=== PATIENT | female | born 1940 | race Caucasian/White ===

== ENCOUNTER 2016-07-15 14:35 | Emergency (ER) | payer OTHER, BC ==
[~2016-07-15] VITALS: Ht 167.6 cm; Wt 100.0 kg
[~2016-07-15 14:35] MED LIST: DONE1TAB26 PO; LATA0.009 OPB; NMN10 PO; SIMV40TA2 PO
[2016-07-15 14:48] VITALS: Ht 167.6 cm; Wt 100.0 kg
[2016-07-15] MEDS ORDERED: DONE5TAB9 PO (14:59)
[2016-07-15] MEDS ORDERED: RAMI5CAP PO (14:59)
[2016-07-15] MEDS ORDERED: MEMA1CAP3 PO (14:59)
[2016-07-15 15:10] VITALS: O2SAT 99
--- NOTE | 2016-07-15 15:15 | DIAGNOSTIC IMAGING REPORT ---
CHEST ONE VIEW PORTABLE CLINICAL HISTORY: syncope dyspnea COMPARISON STUDY: 06/05/2013 FINDINGS: Mild stable cardiomegaly. Diaphragms smooth. Lungs are clear. IMPRESSION: No acute process. Electronically signed by: Lance Doty M.D. 07/15/2016 3:13 PM Dictated Date/Time: 07/15/2016 3:13 PM
[2016-07-15 15:23] LABS: HEMATOCRIT 38.4 % (37-47); MEAN CELL VOLUME 82.2 fL (80-100); MEAN CORPUSCULAR HEMOGLOBIN 25.9 pg (25-34); MEAN CORPUSCULAR HGB CONC 31.5 g/dl (32-36); MEAN PLATELET VOLUME 9.4 fL (7.4-10.4); PLATELET COUNT 205 K/uL (130-400); RED BLOOD COUNT 4.67 M/uL (4.2-5.4); WHITE BLOOD COUNT 7.49 K/uL (4.8-10.8)
[2016-07-15] MEDS ORDERED: SODIUM CHLORIDE 0.9% 1000ML 1,000 ML IV STA (15:31)
[2016-07-15] MEDS ORDERED: SODIUM CHLORIDE 0.9% 500ML 500 ML IV STA (15:31)
[2016-07-15 15:40] LABS: PARTIAL THROMBOPLASTIN RATIO 0.9; PROTHROMBIN TIME (PATIENT) 10.7 SECONDS (9.0-12.0)
[2016-07-15 15:42] LABS: ALT/SGPT 24 U/L (12-78); AST/SGOT 17 U/L (15-37); BLOOD UREA NITROGEN 25 mg/dl (7-18); BUN/CREATININE RATIO 24.9 (10-20); CALCIUM 8.2 mg/dl (8.5-10.1); CARBON DIOXIDE 25 mmol/L (21-32); CHLORIDE 112 mmol/L (98-107); GLUCOSE 107 mg/dl (70-99); POTASSIUM 3.7 mmol/L (3.5-5.1); SODIUM 146 mmol/L (136-145)
[2016-07-15 15:47] LABS: ALB/GLOB RATIO 1.1 (0.9-2); ALKALINE PHOSPHATASE 92 U/L (45-117); CKMB/CK RATIO 2.8 (0-3.0)
[2016-07-15 16:08] LABS: MAGNESIUM 2.3 mg/dl (1.8-2.4)
--- NOTE | 2016-07-15 16:32 | DIAGNOSTIC IMAGING REPORT ---
CT HEAD WITHOUT CONTRAST (CT) CLINICAL HISTORY: Dizziness, near-syncope. COMPARISON STUDY: 06/05/2013 TECHNIQUE: Axial CT of the brain is performed from the vertex to the skull base. IV contrast was not administered for this examination. CT DOSE: 1132.92 mGycm FINDINGS: No intra or extra-axial mass lesions are visualized. There is no CT evidence of acute cortical infarction. There is no evidence of midline shift. There is no acute hemorrhage. No calvarial fractures are visualized. There are patchy white matter hypodensities likely on a small vessel basis. There is mild ventricular dilatation, similar to the preceding study. There is mild mucosal thickening within several left-sided ethmoid air cells. No air-fluid levels are visualized. Old calvarial meño holes are visualized. IMPRESSION: Postsurgical changes in the calvarium. No acute intracranial findings. Electronically signed by: Mitch Corbin M.D. 07/15/2016 4:31 PM Dictated Date/Time: 07/15/2016 4:29 PM
[2016-07-15] MEDS ORDERED: SODIUM CHLORIDE 0.9% 250ML 250 ML IV STA (17:15)
--- NOTE | 2016-07-15 18:15 | EMERGENCY ROOM VISIT NOTE ---
History First contact with patient: 15:07 Chief Complaint: SYNCOPE (NEAR SYNCOPE) Stated Complaint: SYNCOPE Nursing Triage Summary: pt hx alzheimers and dementia, shooping with family, felt warm, removed jacket, family took he outside. slid her to a sitting position, denied fall. no injury. medic moted ST depression on monitor. no cardiac hx. hw htn, one "onr pill" History of Present Illness The patient is a 76 year old female who presents to the Emergency Department by private vehicle for evaluation after a near-syncopal episode. She was reportedly shopping at a grocery store with her family when she reports feeling not well. She was taken outside and her jacket was unzipped as she reports that she was feeling warm. She was lowered to the ground and nearly lost consciousness. She's not strike her head. She never lost consciousness completely. The patient suffers from dementia. She is unable to provide any information as to her feelings of symptoms. She denies any pain at this time. There is been no history of syncopal episodes. The patient did not defecate herself. Family reports that she is back at baseline at this point. Review of Systems Limited secondary to patient's mental status. Past Medical/Surgical History Medical Problems: (1) Dementia (2) Hyperlipidemia Social History Smoking Status: Never Smoker Smokeless Tobacco Use: No Alcohol Use: none Drug Use: none Marital Status: Housing Status: lives with family Occupation Status: unemployed Current/Historical Medications Scheduled Donepezil HCl (Aricept), 5 MG PO DAILY Memantine Hcl (Namenda Xr), 14 MG PO QAM Ramipril (Ramipril), 5 MG PO QAM Simvastatin (Zocor), 40 MG PO QPM Allergies Coded Allergies: No Known Allergies (Verified , 07/15/16) Physical Exam Vital Signs Date Time Temp Pulse Resp B/P Pulse Ox O2 Delivery O2 Flow Rate FiO2 07/15/16 18:20 36.6 87 19 155/81 95 07/15/16 18:03 87 155/81 95 Room Air 07/15/16 16:10 71 19 07/15/16 16:05 70 24 161/85 95 07/15/16 15:40 63 27 98 07/15/16 15:35 64 20 07/15/16 15:30 66 32 07/15/16 15:25 62 20 97 07/15/16 15:20 68 31 97 07/15/16 15:15 66 27 96 07/15/16 15:10 99 Room Air 07/15/16 15:10 36.6 63 18 104/75 99 Room Air 07/15/16 15:10 68 27 93 07/15/16 15:05 68 25 96 07/15/16 15:00 66 18 95 07/15/16 14:59 63 07/15/16 14:59 128/69 07/15/16 14:55 66 21 96 07/15/16 14:50 67 21 96 07/15/16 14:48 99 Room Air 07/15/16 14:48 36.6 65 18 104/75 96 Room Air 07/15/16 14:45 104/75 Pain Rating (0-10): 0 Physical Exam VITAL SIGNS - Vital signs and nursing notes were reviewed. GENERAL - 76-year-old female appearing her stated age who is in no acute distress. Pleasantly demented. HEAD - NC/AT. EYES - PERRL with EOMI bilaterally. Sclera anicteric. Palpebral conjunctiva pink and moist with no injection noted. EARS - No deformities of external structures noted on gross examination bilaterally. No pain elicited with palpation of the tragus bilaterally. External auditory canals without discharge or otorrhea. Tympanic membranes pearly pascal without retraction or bulging. NOSE - Midline and without cyanosis. No epistaxis or purulent drainage noted. Septum midline without deviation or septal hematoma noted. MOUTH/OROPHARYNX - Without perioral cyanosis. Buccal mucosa pink and moist and without leukoplakia. Tongue midline with equal elevation of palate bilaterally. No tonsillar hypertrophy, erythema, or exudates noted. NECK - Neck with FROM. Supple to palpation. LUNGS - Chest wall symmetric without accessory muscle use, intercostals retractions, or central cyanosis. Normal vesicular breath sounds CTA B/L. No wheezes, rales, or rhonchi appreciated. CARDIAC - RRR with S1/S2. No murmur, rubs, or gallops appreciated. No reproducible tenderness to palpation appreciated over the anterior chest wall. ABDOMEN - Abdominal contour obese and without pulsations or visible masses. BS normoactive all four quadrants. No tenderness, palpable masses, hepatosplenomegaly, or ascites noted. EXTREMITIES - No clubbing or peripheral cyanosis. No pretibial edema present. +3 /5 radial and dorsalis pedis pulses palpated throughout. +5/5 strength noted in UE/LE bilaterally. NEUROLOGIC - Cranial nerves II through XII grossly intact. Sensory intact to light touch throughout. PSYCH - Pleasantly demented. Pt is very pleasant and interacts well with examiner. Medical Decision & Procedures ER Provider Diagnostic Interpretation: Radiological imaging and reports were reviewed by myself. Radiologist's Interpretation as follows: CT HEAD WITHOUT CONTRAST (CT) CLINICAL HISTORY: Dizziness, near-syncope. COMPARISON STUDY: 06/05/2013 TECHNIQUE: Axial CT of the brain is performed from the vertex to the skull base. IV contrast was not administered for this examination. CT DOSE: 1132.92 mGycm FINDINGS: No intra or extra-axial mass lesions are visualized. There is no CT evidence of acute cortical infarction. There is no evidence of midline shift. There is no acute hemorrhage. No calvarial fractures are visualized. There are patchy white matter hypodensities likely on a small vessel basis. There is mild ventricular dilatation, similar to the preceding study. There is mild mucosal thickening within several left-sided ethmoid air cells. No air-fluid levels are visualized. Old calvarial meño holes are visualized. IMPRESSION: Postsurgical changes in the calvarium. No acute intracranial findings. CHEST ONE VIEW PORTABLE CLINICAL HISTORY: syncope dyspnea COMPARISON STUDY: 06/05/2013 FINDINGS: Mild stable cardiomegaly. Diaphragms smooth. Lungs are clear. IMPRESSION: No acute process. Laboratory Results 07/15/16 15:14 07/15/16 15:14 Test 07/15/16 15:14 07/15/16 16:53 Red Blood Count 4.67 M/uL (4.2-5.4) Mean Corpuscular Volume 82.2 fL (80-100) Mean Corpuscular Hemoglobin 25.9 pg (25-34) Mean Corpuscular Hemoglobin Concent 31.5 g/dl (32-36) RDW Standard Deviation 43.1 fL (36.4-46.3) RDW Coefficient of Variation 14.4 % (11.5-14.5) Mean Platelet Volume 9.4 fL (7.4-10.4) Prothrombin Time 10.7 SECONDS (9.0-12.0) Prothromb Time International Ratio 1.0 (0.9-1.1) Activated Partial Thromboplast Time 24.1 SECONDS (21.0-31.0) Partial Thromboplastin Ratio 0.9 Anion Gap 9.0 mmol/L (3-11) Est Creatinine Clear Calc Drug Dose 55.3 ml/min Estimated GFR () 62.5 Estimated GFR (Non- 53.9 BUN/Creatinine Ratio 24.9 (10-20) Calcium Level 8.2 mg/dl (8.5-10.1) Magnesium Level 2.3 mg/dl (1.8-2.4) Total Bilirubin 0.3 mg/dl (0.2-1) Aspartate Amino Transf (AST/SGOT) 17 U/L (15-37) Alanine Aminotransferase (ALT/SGPT) 24 U/L (12-78) Alkaline Phosphatase 92 U/L (45-117) Total Creatine Kinase 47 U/L (26-192) Creatine Kinase MB 1.3 ng/ml (0.5-3.6) Creatine Kinase MB Ratio 2.8 (0-3.0) Troponin I < 0.015 ng/ml (0-0.045) Total Protein 6.6 gm/dl (6.4-8.2) Albumin 3.5 gm/dl (3.4-5.0) Globulin 3.1 gm/dl (2.5-4.0) Albumin/Globulin Ratio 1.1 (0.9-2) Thyroid Stimulating Hormone (TSH) 4.580 uIu/ml (0.300-4.500) Ethyl Alcohol mg/dL < 3.0 mg/dl (0-3) Medications Administered Medications (Trade) Dose Ordered Sig/Srini Route Start Time Stop Time Status Last Admin Dose Admin Sodium Chloride 500 ml @ 999 mls/hr Q31M STAT IV 07/15/16 15:31 07/15/16 16:01 DC 07/15/16 16:06 999 MLS/HR Sodium Chloride (Nss 1000ml) 1,000 ml @ 125 mls/hr Q8H STAT IV 07/15/16 15:31 07/15/16 19:59 DC 07/15/16 15:31 125 MLS/HR Procedure Patient was placed on the quality assurance monitor and monitored throughout the entire extent of their stay. In addition, the patient's pulse oximetry was monitored throughout the entire stay. Any abnormalities or aberrancies were addressed appropriately. ECG Indication: syncope Rate (beats per minute): 64 Rhythm: normal sinus Findings: LBBB Change: no significant change (from 06/05/2013.) ED Course Patient was seen and evaluated by myself. Labs were drawn, saline lock in place. EKG and chest x-rays were obtained. CT the head was obtained. Laboratory results demonstrate no acute leukocytosis, worrisome anemia, or bandemia. The patient has no significant electrolyte abnormalities. Cardiac enzymes are negative. The patient was hydrated with a 500 mL normal saline bolus. She was hydrated with normal saline at a rate of 1 25 mL per hour after that. The patient was unsuccessfully catheterize for urine sample. Laboratory results and imaging studies were reviewed with patient and family. Family acknowledges understanding. We did attempt to have the patient provide her own urine sample which she was unsuccessfully able to do. At this point, patient requests to be discharged home as the patient is becoming increasingly agitated secondary to her Alzheimer's. Case was discussed with my attending physician who agrees with the diagnostic approach and treatment plan. Patient discharged home in good condition. Medical Decision Given the patient's presentation and stated complaints, I did elect to perform the above-mentioned workup. The patient presents today after having a near- syncopal episode. No precipitating events of the complaining of feeling hot. There is no seizure-like activity. Her cardiac enzymes and EKG are unremarkable and did not suggest cardiac etiology. She was complaining of some dizziness over the last few days. CT the head demonstrates no acute findings. The patient has no focal neurological deficits on exam. She is pleasantly demented. She resolved well to IV fluid hydration. We were unable to successfully obtain urine sample secondary to patient's cooperation. Patient family were comfortable with disposition and plan. She was discharged home with the intent for close follow-up with her primary care provider. Patient discharged home in good condition. In the evaluation and treatment of this patient, the following differential diagnoses were considered: Migraine Headache, Intracranial Hemorrhage, Subdural Hematoma, Subarachnoid Hemorrhage, Cerebral Aneurysm, Temporal/Giant Cell Arteritis, Tension Headache, Meningitis, Encephalitis, Hydrocephalus, NE, ASC, Dysrhythmia, Angina, Mediastinitis, GERD, Esophagitis, PE, Pneumonia, Bronchitis , Costochondritis, Rib Fracture, Zoster. Impression Primary Impression: Vasovagal near syncope Departure Information Dispostion Home / Self-Care Condition GOOD Referrals Chet Espinal M.D. (PCP) Patient Instructions ED Syncope Vasovagal, My [facility] Additional Instructions You've been seen in the emergency department today for a near-syncopal episode. Drink plenty of fluids and stay well hydrated. You have been provided a urine collection cup to provide a sample in the outpatient setting. Follow-up with your primary care provider from today's visit. Return for any changing or worsening symptoms.
[2016-07-15 18:20] VITALS: BP 155/81; PULSE 87; TEMP 36.6; O2SAT 95
--- NOTE | 2016-07-15 18:42 | EMERGENCY ROOM VISIT NOTE ---
ED Visit Note First contact with patient: 15:07 76-year-old female with near-syncope was fully evaluated by Horace Gorman PA-C. Please see his note. I also independently evaluated the patient. I also spoke with family members. The patient was felt safe to return home.
== END 2016-07-15 18:20 | disposition home or self-care (01) ==
LOC: EDBD 14:35 → C.EDC 14:41
DX: R55 Syncope and collapse (principal); G30.9 Alzheimer's disease, unspecified; F02.80 Dementia in other diseases classified elsewhere, unspecified severity, without behavioral disturbance, psychotic disturbance, mood disturbance, and anxiety; Z79.899 Other long term (current) drug therapy; E78.5 Hyperlipidemia, unspecified

== ENCOUNTER 2016-12-27 12:28 | Observation (INO) | payer OTHER, BC ==
[~2016-12-27] VITALS: Ht 162.6 cm; Wt 67.2 kg
[~2016-12-27 12:28] MED LIST changes: -DONE1TAB26 PO; +DONE5TAB9 PO; -LATA0.009 OPB; +MEMA1CAP3 PO; -NMN10 PO; +RAMI5CAP PO
[2016-12-27] MEDS ORDERED: SODIUM CHLORIDE 0.9% 1000ML 1,000 ML IV STA (12:59)
[2016-12-27 13:38] LABS: BASO % 0.5 %; BASO ABS # 0.04 K/uL (0-0.2); COMPLETE YES; EOS % 1.4 %; HEMATOCRIT 41.7 % (37-47); IG% 0.2 %; LYMPH % 15.2 %; LYMPH ABS # 1.35 K/uL (1.2-3.4); MEAN CELL VOLUME 83.7 fL (80-100); MEAN CORPUSCULAR HEMOGLOBIN 25.3 pg (25-34); MEAN CORPUSCULAR HGB CONC 30.2 g/dl (32-36); MEAN PLATELET VOLUME 9.5 fL (7.4-10.4); MONO % 6.8 %; NEUT % 75.9 %; PLATELET COUNT 225 K/uL (130-400); RED BLOOD COUNT 4.98 M/uL (4.2-5.4); WHITE BLOOD COUNT 8.87 K/uL (4.8-10.8)
[2016-12-27 13:54] LABS: PARTIAL THROMBOPLASTIN RATIO 0.9; PROTHROMBIN TIME (PATIENT) 10.8 SECONDS (9.0-12.0)
[2016-12-27 13:55] LABS: ALT/SGPT 23 U/L (12-78); BLOOD UREA NITROGEN 24 mg/dl (7-18); CALCIUM 8.7 mg/dl (8.5-10.1); CARBON DIOXIDE 25 mmol/L (21-32); CHLORIDE 108 mmol/L (98-107); GLUCOSE 133 mg/dl (70-99); MAGNESIUM 2.1 mg/dl (1.8-2.4); POTASSIUM 4.2 mmol/L (3.5-5.1); SODIUM 142 mmol/L (136-145)
[2016-12-27 14:00] LABS: ALKALINE PHOSPHATASE 100 U/L (45-117); AST/SGOT 17 U/L (15-37)
--- NOTE | 2016-12-27 14:08 | DIAGNOSTIC IMAGING REPORT ---
CT HEAD WITHOUT CONTRAST (CT) CLINICAL HISTORY: Altered mental status. Syncope. Sudden onset of weakness. Mild head trauma. COMPARISON STUDY: 07/15/2016 TECHNIQUE: Axial CT of the brain is performed from the vertex to the skull base. IV contrast was not administered for this examination. A dose lowering technique was utilized adhering to the principles of ALARA. CT DOSE: 614.27 mGy.cm FINDINGS: No intra or extra-axial mass lesions are visualized. There is no CT evidence of acute cortical infarction. There is no evidence of midline shift. There is no acute hemorrhage. No calvarial fractures are visualized. There are patchy white matter hypodensities likely on a small vessel basis. There is stable mild ventricular dilatation likely secondary to volume loss There is no evidence of acute sinusitis. Old calvarial meño holes are visualized. IMPRESSION: No acute intracranial findings Electronically signed by: Mitch Corbin M.D. 12/27/2016 2:07 PM Dictated Date/Time: 12/27/2016 2:05 PM
[2016-12-27] MEDS ORDERED: SERT50TA PO (14:26)
--- NOTE | 2016-12-27 14:37 | DIAGNOSTIC IMAGING REPORT ---
CHEST ONE VIEW PORTABLE CLINICAL HISTORY: Altered mental status. Weakness. Syncope. COMPARISON STUDY: 07/15/2016 FINDINGS: The heart is mildly enlarged. There is no failure. There is no lobar pulmonary consolidation.[ There is a triangle opacity at the right medial lung base, likely atelectatic. There are no pleural effusions IMPRESSION: Small triangular opacity at the right medial lung base, likely atelectatic. No evidence of failure. No evidence of lobar consolidation Electronically signed by: Mitch Corbin M.D. 12/27/2016 2:36 PM Dictated Date/Time: 12/27/2016 2:35 PM
--- NOTE | 2016-12-27 15:42 | History and Physical ---
History & Physical Date & Time of Service: Dec 27, 2016 at 14:42 Chief Complaint: Syncope Primary Care Physician: Chet Espinal M.D. History of Present Illness Source: family (daughter) 76yo female with history of dementia and prior syncopal episode who presents with two episodes of syncope earlier today. First occurred in the upstairs bathroom at her home. She apparently passed out while having a bowel movement. Her daughter and the home health nurse brought her downstairs and she had a 2nd episode of syncope while standing in between the door frame between the dining room & living room. She has "life alert" and after the first episode of syncope this was activated. Thus, EMS arrived very quickly after the syncopal spell in the living area on the first floor. Just prior to the 2nd episode she apparently was talking, joking, and then " just went out." There was no seizure activity per family. She regained consciousness relatively quickly per family. One of her daughters was at bedside during my assessment and reports that she saw her mother last night and at that time seemed to be healthy and acting normally. Past Medical/Surgical History PMH: 1. SDH - 2006, s/p meño bobby (Dr. Mitchell) 2. dementia 3. hyperlipidemia 4. HTN PSH: 1. meño hole for SDH 2. hysterectomy Family History mother - stroke in her 80s father - from [place] in his 70s Social History Smoking Status: Former Smoker (teenage years until age 34) Alcohol Use: socially (in the past ) Drug Use: none Marital Status: (3 children) Housing status: lives with family ( in [place]) Occupational Status: retired Immunizations History of Influenza Vaccine: Yes Influenza Vaccine Date: Mar 06, 2013 History of Tetanus Vaccine?: Unknown Tetanus Immunization Date: Jul 23, 2004 History of Pneumococcal: No Pneumococcal Date: Jul 31, 2007 History of Hepatitis B Vaccine: No Multi-Drug Resistant Organisms History of MDRO: No Allergies Coded Allergies: No Known Allergies (Verified , 07/15/16) Home Medications Scheduled Donepezil HCl (Aricept), 5 MG PO DAILY Memantine Hcl (Namenda Xr), 14 MG PO QAM Ramipril (Ramipril), 5 MG PO QAM Sertraline (Zoloft), 50 MG PO DAILY Simvastatin (Zocor), 40 MG PO QPM Review of Systems unable to obtain ROS due to dementia Physical Exam Vital Signs Date Time Temp Pulse Resp B/P (MAP) Pulse Ox O2 Delivery O2 Flow Rate FiO2 12/27/16 14:16 64 16 174/97 99 Room Air 12/27/16 13:32 61 132/77 70 126/77 82 122/71 12/27/16 12:39 98 Room Air 12/27/16 12:39 36.7 60 20 153/85 98 Room Air 12/27/16 12:35 57 General Appearance: WD/WN, no apparent distress, + pertinent finding (a little agitated at times but otherwise NAD; speech clear, no dysarthria or aphasia) Head: normocephalic, atraumatic Eyes: PERRL, EOMI ENT: TMs normal, pharynx normal (no bite otero) Neck: supple, no adenopathy, thyroid normal, no JVD Respiratory/Chest: lungs clear, no respiratory distress, no accessory muscle use Cardiovascular: regular rate, rhythm, no gallop, no murmur, normal peripheral pulses Abdomen/GI: normal bowel sounds, non tender, soft, no organomegaly Genitourinary - Female: + pertinent finding (foul-smelling urine smell in groin region during the exam) Extremities/Musculoskelatal: no pedal edema Neurologic/Psych: no motor/sensory deficits, alert, normal reflexes, + disoriented, + pertinent finding (no facial droop) Skin: no rash (no signs of trauma, no rash) musculo - no signs of injury; passive ROM of both hips, both knees, and both ankles causes no pain; passive ROM of joints of arms also normal ?mild pain in the cervical region posteriorly with palpation Diagnostics Laboratory Results Results Past 24 Hours Test 12/27/16 13:05 12/27/16 13:16 Range/Units White Blood Count 8.87 4.8-10.8 K/uL Red Blood Count 4.98 4.2-5.4 M/uL Hemoglobin 12.6 12.0-16.0 g/dL Hematocrit 41.7 37-47 % Mean Corpuscular Volume 83.7 80-100 fL Mean Corpuscular Hemoglobin 25.3 25-34 pg Mean Corpuscular Hemoglobin Concent 30.2 32-36 g/dl Platelet Count 225 130-400 K/uL Mean Platelet Volume 9.5 7.4-10.4 fL Neutrophils (%) (Auto) 75.9 % Lymphocytes (%) (Auto) 15.2 % Monocytes (%) (Auto) 6.8 % Eosinophils (%) (Auto) 1.4 % Basophils (%) (Auto) 0.5 % Neutrophils # (Auto) 6.74 1.4-6.5 K/uL Lymphocytes # (Auto) 1.35 1.2-3.4 K/uL Monocytes # (Auto) 0.60 0.11-0.59 K/uL Eosinophils # (Auto) 0.12 0-0.5 K/uL Basophils # (Auto) 0.04 0-0.2 K/uL RDW Standard Deviation 43.1 36.4-46.3 fL RDW Coefficient of Variation 14.2 11.5-14.5 % Immature Granulocyte % (Auto) 0.2 % Immature Granulocyte # (Auto) 0.02 0.00-0.02 K/uL Prothrombin Time 10.8 9.0-12.0 SECONDS Prothromb Time International Ratio 1.0 0.9-1.1 Activated Partial Thromboplast Time 22.1 21.0-31.0 SECONDS Partial Thromboplastin Ratio 0.9 Sodium Level 142 136-145 mmol/L Potassium Level 4.2 3.5-5.1 mmol/L Chloride Level 108 98-107 mmol/L Carbon Dioxide Level 25 21-32 mmol/L Anion Gap 9.0 3-11 mmol/L Blood Urea Nitrogen 24 7-18 mg/dl Creatinine 1.20 0.60-1.20 mg/dl Est Creatinine Clear Calc Drug Dose 37.1 ml/min Estimated GFR () 50.1 Estimated GFR (Non- 43.3 BUN/Creatinine Ratio 20.0 10-20 Random Glucose 133 70-99 mg/dl Calcium Level 8.7 8.5-10.1 mg/dl Magnesium Level 2.1 1.8-2.4 mg/dl Total Bilirubin 0.5 0.2-1 mg/dl Direct Bilirubin 0.1 0-0.2 mg/dl Aspartate Amino Transf (AST/SGOT) 17 15-37 U/L Alanine Aminotransferase (ALT/SGPT) 23 12-78 U/L Alkaline Phosphatase 100 45-117 U/L Troponin I < 0.015 0-0.045 ng/ml Total Protein 6.9 6.4-8.2 gm/dl Albumin 3.6 3.4-5.0 gm/dl Bedside Glucose 125 70-90 mg/dl Diagnostic Radiology CT head - atrophy, no stroke, no ICH; evidence of old meño holes cxr - small area of atelectasis RLL medially EKG EKG - NSR, LBBB -- the LBBB is OLD Impression Assessment and Plan 76yo female with history of fairly advanced dementia, prior SDH due to head trauma from fall requiring meño hole, and HTN presenting with 2 episodes of syncope this am. 1. syncope - first episode was during a bowel movement and certainly this could have been vasovagally mediated. The cause of the second episode is not as clear. An EKG from several years ago showed V-tach so arrhythmia is quite possible as the cause. Dehydration, UTI, or other cardiac disease could have caused her episodes as well. plan - place on telemetry, echo, serial troponins, check u/a and urine cx to r/o UTI, hydrate. Check carotid duplex to be complete. I do not think her episodes were TIAs or atypical seizure. Her neuro exam is normal as well. 2. HTN - continue VIRIDIANA and adjust as needed. 3. dementia - advanced. Suspect she will have worsening confusion in the hospital. Haldol 2.5mg PO q8h prn severe agitation/delirium. 4. FEN - NS hydration for 1 liter then saline lock. Lytes are stable. Diet as tolerated. 5. DVT proph - lovenox once daily. 6. CKD stage 3 - repeat Cr in am. 7. foul-smelling urine, incontinence - check u/a and urine cx; Rx as necessary for UTI. 8. mild cervical neck pain s/p syncope with fall - cervical spine CT to r/o fracture. 9. h/o SDH due to fall - noted; head CT today w/o new ICH. 10. LBBB - this is chronic. PT, OT to ensure she is safe to return home after her work-up is complete Level of Care Telemetry Advanced Directives Existing Advance Directive: No Existing Living Will: No Resuscitation Status FULL RESUSCITATION VTE Prophylaxis VTE Risk Assessment Done? Y/N: Yes Risk Level: Moderate Note total time about 60 minutes patient to be placed on observation status Additional Copies To Chet Espinal M.D.
--- NOTE | 2016-12-27 15:42 | EMERGENCY ROOM VISIT NOTE ---
History Report prepared by Zack: Cruzito Scruggs Under the Supervision of: Dr. Mikie Beckwith D.O. First contact with patient: 12:51 Chief Complaint: SYNCOPE Stated Complaint: SYNCOPE Nursing Triage Summary: patient to ed via ALS for syncope x2, per medic, patient had sudden onset of weakness with syncope and diarrhea. Family reports patient falling and "hitting head lightly upon the sink". Upon their arrival, patient was denying symptoms and was about to refuse transport at which time she had another syncopal episode lasting approximately 20 seconds. Patient denies symptoms at time of triage. Baseline dementia, patient oriented to self. History of Present Illness The patient is a 76 year old female who presents to the Emergency Room for multiple syncopal episodes that occurred shortly prior to arrival. Per the patient's daughter the patient was upstairs alone when she experiences her first syncopal episode and fell. The patient's caregiver noted that she could have hit her head on the sink, but it is not known for sure. When EMS arrived on scene the patient was behaving at baseline and they determined she did not need to come to the department. As they were leaving the patient experienced the second syncopal episode. EMS note that the patient fell to the ground and had an episode of diarrhea. This episode lasted roughly twenty seconds. The daughter notes she is at baseline currently and has a history of Alzheimer's. The patient denies headache, change in vision, fevers, chest pain, shortness of breath, nausea, vomiting, diarrhea, pain with urination, and melena. Source of History: family, EMS Onset: Shortly S[employer] BLASTING Position: other (Global) Quality: other (Syncope) Associated Symptoms: + diarrhea, No chest pain, No SOB Review of Systems See HPI for pertinent positives & negatives. A total of 10 systems reviewed and were otherwise negative. Past Medical & Surgical Medical Problems: (1) Dementia (2) Hyperlipidemia (3) Syncope Family History Noncontributory secondary to age. Social History Smoking Status: Unknown if Ever Smoked Alcohol Use: none Drug Use: none Marital Status: Housing Status: lives with family Occupation Status: unemployed Current/Historical Medications Scheduled Donepezil HCl (Aricept), 5 MG PO DAILY Memantine Hcl (Namenda Xr), 14 MG PO QAM Ramipril (Ramipril), 5 MG PO QAM Sertraline (Zoloft), 50 MG PO DAILY Simvastatin (Zocor), 40 MG PO QPM Allergies Coded Allergies: No Known Allergies (Verified , 07/15/16) Physical Exam Vital Signs Date Time Temp Pulse Resp B/P (MAP) Pulse Ox O2 Delivery O2 Flow Rate FiO2 12/27/16 14:16 64 16 174/97 99 Room Air 12/27/16 13:32 61 132/77 70 126/77 82 122/71 12/27/16 12:39 98 Room Air 12/27/16 12:39 36.7 60 20 153/85 98 Room Air 12/27/16 12:35 57 Physical Exam GENERAL: Sitting up in bed, alert, well appearing, well nourished, no distress, non-toxic EYE EXAM: normal conjunctiva, PERRL and EOM's intact OROPHARYNX: no exudate, no erythema, lips, buccal mucosa, and tongue normal and mucous membranes are moist NECK: supple, no nuchal rigidity, no adenopathy, non-tender LUNGS: Clear to auscultation. Normal chest wall mechanics HEART: S1 normal and S2 normal ABDOMEN: abdomen soft, non-tender, normo-active bowel sounds, no masses, no rebound or guarding. BACK: Back is symmetrical on inspection and there is no deformity, no midline tenderness, no CVA tenderness. SKIN: no rashes and no bruising UPPER EXTREMITIES: upper extremities are grossly normal. LOWER EXTREMITIES: No pitting edema. NEURO EXAM: Alert, oriented to person and place. Following commands. Cranial nerves II-XII intact. No weakness of upper or lower extremities. At baseline per daughter Medical Decision & Procedures ER Provider Diagnostic Interpretation: Radiology results as stated below per my review and the radiologist's interpretation: CT HEAD WITHOUT CONTRAST (CT) CLINICAL HISTORY: Altered mental status. Syncope. Sudden onset of weakness. Mild head trauma. COMPARISON STUDY: 07/15/2016 TECHNIQUE: Axial CT of the brain is performed from the vertex to the skull base. IV contrast was not administered for this examination. A dose lowering technique was utilized adhering to the principles of ALARA. CT DOSE: 614.27 mGy.cm FINDINGS: No intra or extra-axial mass lesions are visualized. There is no CT evidence of acute cortical infarction. There is no evidence of midline shift. There is no acute hemorrhage. No calvarial fractures are visualized. There are patchy white matter hypodensities likely on a small vessel basis. There is stable mild ventricular dilatation likely secondary to volume loss There is no evidence of acute sinusitis. Old calvarial meño holes are visualized. IMPRESSION: No acute intracranial findings Electronically signed by: Mitch Corbin M.D. 12/27/2016 2:07 PM Dictated Date/Time: 12/27/2016 2:05 PM Laboratory Results 12/27/16 13:05 Red Blood Count 4.98, Mean Corpuscular Volume 83.7, Mean Corpuscular Hemoglobin 25.3, Mean Corpuscular Hemoglobin Concent 30.2, Mean Platelet Volume 9.5, Neutrophils (%) (Auto) 75.9, Lymphocytes (%) (Auto) 15.2, Monocytes (%) (Auto) 6.8, Eosinophils (%) (Auto) 1.4, Basophils (%) (Auto) 0.5, Neutrophils # (Auto) 6.74, Lymphocytes # (Auto) 1.35, Monocytes # (Auto) 0.60, Eosinophils # (Auto) 0.12, Basophils # (Auto) 0.04 12/27/16 13:05 Test 12/27/16 13:05 12/27/16 13:16 White Blood Count 8.87 K/uL (4.8-10.8) Red Blood Count 4.98 M/uL (4.2-5.4) Hemoglobin 12.6 g/dL (12.0-16.0) Hematocrit 41.7 % (37-47) Mean Corpuscular Volume 83.7 fL (80-100) Mean Corpuscular Hemoglobin 25.3 pg (25-34) Mean Corpuscular Hemoglobin Concent 30.2 g/dl (32-36) Platelet Count 225 K/uL (130-400) Mean Platelet Volume 9.5 fL (7.4-10.4) Neutrophils (%) (Auto) 75.9 % Lymphocytes (%) (Auto) 15.2 % Monocytes (%) (Auto) 6.8 % Eosinophils (%) (Auto) 1.4 % Basophils (%) (Auto) 0.5 % Neutrophils # (Auto) 6.74 K/uL (1.4-6.5) Lymphocytes # (Auto) 1.35 K/uL (1.2-3.4) Monocytes # (Auto) 0.60 K/uL (0.11-0.59) Eosinophils # (Auto) 0.12 K/uL (0-0.5) Basophils # (Auto) 0.04 K/uL (0-0.2) RDW Standard Deviation 43.1 fL (36.4-46.3) RDW Coefficient of Variation 14.2 % (11.5-14.5) Immature Granulocyte % (Auto) 0.2 % Immature Granulocyte # (Auto) 0.02 K/uL (0.00-0.02) Prothrombin Time 10.8 SECONDS (9.0-12.0) Prothromb Time International Ratio 1.0 (0.9-1.1) Activated Partial Thromboplast Time 22.1 SECONDS (21.0-31.0) Partial Thromboplastin Ratio 0.9 Anion Gap 9.0 mmol/L (3-11) Est Creatinine Clear Calc Drug Dose 37.1 ml/min Estimated GFR () 50.1 Estimated GFR (Non- 43.3 BUN/Creatinine Ratio 20.0 (10-20) Calcium Level 8.7 mg/dl (8.5-10.1) Magnesium Level 2.1 mg/dl (1.8-2.4) Total Bilirubin 0.5 mg/dl (0.2-1) Direct Bilirubin 0.1 mg/dl (0-0.2) Aspartate Amino Transf (AST/SGOT) 17 U/L (15-37) Alanine Aminotransferase (ALT/SGPT) 23 U/L (12-78) Alkaline Phosphatase 100 U/L (45-117) Troponin I < 0.015 ng/ml (0-0.045) Total Protein 6.9 gm/dl (6.4-8.2) Albumin 3.6 gm/dl (3.4-5.0) Bedside Glucose 125 mg/dl (70-90) Laboratory results per my review. Medications Administered Medications (Trade) Dose Ordered Sig/Srini Route Start Time Stop Time Status Last Admin Dose Admin Sodium Chloride 1,000 ml @ 999 mls/hr Q1H1M STAT IV 12/27/16 12:59 12/27/16 13:59 DC 12/27/16 13:37 999 MLS/HR ECG Indication: syncope Rate (beats per minute): 62 Rhythm: sinus rhythm Findings: LBBB, other (LAD) Comparison ECG Date: 07/15/2016 Change: no significant change ED Course ED COURSE: Vital signs were reviewed and showed hypertensive vitals The patients medical record was reviewed The above diagnostic studies were performed and reviewed. ED treatments and interventions as stated above. 1252: The patient was evaluated in room B12. A complete history and physical examination was performed. 1259: Ordered Sodium Chloride 1000 mL @ 999 mL/hr IV. 1422: I discussed the case with Dr. Thania AMBROSE Hospitalist, at this time. He will evaluate the patient for further treatment. 1430: Upon reevaluation, the patient is resting in bed.I discussed my findings with the patient and she understands and agrees with the treatment plan. Based on the patients age, coexisting illnesses, exam and lab findings the decision to treat as an inpatient was made. The patient remained stable while under my care. The patient will be evaluated for further management. Medical Decision Differential diagnosis includes etiologies such as vasovagal event, infection, hypoglycemia, electrolyte abnormalities, cardiac sources, intracerebral event, toxicologic, neurologic, as well as others were entertained. Patient is a 76-year-old female who presents the ER following 2 episodes of syncope. Her initial occurred while having a bowel movement which I favors was likely vasovagal however she had another episode of syncope while in the living room. No known trauma. No focal deficit. Patient is at her baseline. CBC along with BMP, LFTs, bilirubin and troponin were unremarkable. EKG was unchanged. Chest x-ray unremarkable. CT head was negative. Family was updated at bedside. With her 2 episodes of unexplained sick to be and her age she was discussed with internal medicine for observation overnight. Discussed with Pt concerning signs and symptoms to watch out for. Pt was instructed to follow up with their PCP and discussed with the patient their option to return to the ED at anytime for persistent or worsening symptoms. The appropriate anticipatory guidance and out-patient management, including indications for return to the emergency department, were explained at length to the patient and understood. Medication Reconcilliation Current Medication List: was personally reviewed by me Blood Pressure Screening Patient's blood pressure: Elevated blood pressure Blood pressure disposition: Elevated BP felt to be situational Consults Time Called: 1415 Consulting Physician: Dr. Thania AMBROSE Hospitalist Returned Call: 1422 I discussed the case with Dr. Siuta - [facility] Hospitalist, at this time. He will evaluate the patient for further treatment. Impression Primary Impression: Syncope Additional Impression: Dementia Scribe Attestation The scribe's documentation has been prepared under my direction and personally reviewed by me in its entirety. I confirm that the note above accurately reflects all work, treatment, procedures, and medical decision making performed by me. Departure Information Dispostion Being Evaluated By Hospitalist Referrals Chet Espinal M.D. (PCP) Patient Instructions My [facility] Problem Qualifiers Primary Impression: Syncope Syncope type: unspecified Qualified Codes: R55 - Syncope and collapse Additional Impression: Dementia Dementia type: unspecified type Dementia behavioral disturbance: without behavioral disturbance Qualified Codes: F03.90 - Unspecified dementia without behavioral disturbance
[2016-12-27] MEDS ORDERED: IV FLUIDS COMPLETED PRN (16:00)
--- NOTE | 2016-12-27 16:49 | DIAGNOSTIC IMAGING REPORT ---
CERVICAL SPINE W/O CT DOSE: 446.00 mGycm HISTORY: Trauma eval for c-spine fracture TECHNIQUE: Multiaxial CT images of the cervical spine were performed and reformatted in the sagittal and coronal plane without the use of contrast. A dose lowering technique was utilized adhering to the principles of ALARA. COMPARISON: None. FINDINGS: No fractures. No subluxation. Prevertebral soft tissues and the C1-C2 interval are intact. No pneumothorax. Chronic apical fibrotic change. Degenerative disc change C5-C7. IMPRESSION: Degenerative change. No acute process. The above report was generated using voice recognition software. It may contain grammatical, syntax or spelling errors. Electronically signed by: Lance Doty M.D. 12/27/2016 4:48 PM Dictated Date/Time: 12/27/2016 4:46 PM
[2016-12-27 17:23] VITALS: BP 156/99; PULSE 87; TEMP 36.8; O2SAT 95
[2016-12-27 18:45] LABS: URINE APPEARANCE TURBID (CLEAR); URINE BILIRUBIN NEG (NEG); URINE COLOR YELLOW; URINE EPITHELIAL CELL AUTO >30 /lpf (0-5); URINE NITRITE NEG (NEG); UROBILINOGEN NEG (NEG)
[2016-12-27 18:49] LABS: MANUAL MICROSCOPIC REQUIRED? NO; REVIEW REQ? YES
[2016-12-27] MEDS: SODIUM CHLORIDE 0.9% 1000ML 1,000 ML IV SCH (19:02)
[2016-12-27] MEDS: LISINOPRIL 10 MG TAB PO SCH (19:03)
[2016-12-27 20:00] VITALS: BP 176/83; PULSE 69; TEMP 36.6; O2SAT 100; Ht 162.6 cm; Wt 67.2 kg
[2016-12-27 20:08] VITALS: BP 186/94; PULSE 77; TEMP 36.9; O2SAT 99
[2016-12-27] MEDS: HALOPERIDOL 5 MG TAB PO PRN (20:35)
[2016-12-27] MEDS: SIMVASTATIN 40 MG TAB PO SCH (20:35)
[2016-12-27 21:31] LABS: THYROID STIMULATING HORMONE 1.6 uIu/ml (0.300-4.500)
[2016-12-27] MEDS ORDERED: LISINOPRIL 5 MG TAB PO STA (22:23)
[2016-12-27] MEDS: CEFAZOLIN IV 1,000 MG in DEXTROSE 5% 50ML 50 ML IV SCH (22:42)
[2016-12-27 23:05] VITALS: BP 176/83; PULSE 69; TEMP 36.6; O2SAT 100
[2016-12-28] VITALS (11 sets, daily range): BP systolic 151–193; BP diastolic 71–95; PULSE 73–99; TEMP 36.2–36.9; O2SAT 92–99
[2016-12-28] MEDS: SODIUM CHLORIDE 0.9% 1000ML 1,000 ML IV SCH ×2 (04:30→16:54)
[2016-12-28 08:10] LABS: BUN/CREATININE RATIO 22.2 (10-20); CALCIUM 8.7 mg/dl (8.5-10.1); CREATININE 0.95 mg/dl (0.60-1.20); POTASSIUM 3.6 mmol/L (3.5-5.1)
[2016-12-28] MEDS: DONEPEZIL HCL 5 MG TAB PO SCH (08:23)
[2016-12-28] MEDS: SERTRALINE HCL 50 MG TAB PO SCH (08:24)
[2016-12-28] MEDS: LISINOPRIL 10 MG TAB PO SCH (08:24)
[2016-12-28] MEDS: ENOXAPARIN 40 MG/0.4 ML SYR SQ SCH (08:25)
--- NOTE | 2016-12-28 09:15 | Hospitalist Progress Note ---
Hospitalist Progress Note Date of Service Dec 28, 2016. (Alisa Azevedo PA-C) Subjective Pt evaluation today including: conversation w/ patient, conversation w/ family , physical exam, chart review, lab review Pain: None PO Intake: Good Voiding: no voiding problems The patient was seen and examined this morning. Pt's daughter is present during the interview. The patient denies any acute complaints and seems pleasantly confused. Daughter reports that she typically can remember the names of her children, but is not oriented to date or year, she is typically oriented to place, but sometimes is not. Today the patient is unable to say that she is in a hospital, but could yesterday. Constitutional: No fever, No chills, No sweats Eyes: No diplopia ENT: No nasal symptoms, No sore throat Respiratory: No cough, No shortness of breath Cardiovascular: No chest pain, No palpitations Abdomen: No pain, No nausea, No vomiting, No diarrhea, No constipation Musculoskeletal: No joint pain, No swelling Female : No dysuria, No hematuria Neurologic: + memory loss, + weakness, + problem reported (no lightheadedness or dizziness), No numbness/tingling, No vertigo Endo: No fatigue Skin: No rash, No itch (Alisa Azevedo PA-C) Objective Vital Signs Date Time Temp Pulse Resp B/P (MAP) Pulse Ox O2 Delivery O2 Flow Rate FiO2 12/28/16 07:07 36.9 88 19 151/71 (97) 92 Room Air 12/28/16 04:47 36.2 73 18 183/80 (114) 97 Room Air 12/28/16 04:00 Room Air 12/28/16 00:00 Room Air 12/27/16 23:05 36.6 69 20 176/83 (114) 100 Room Air 12/27/16 20:22 36.9 77 20 186/94 99 12/27/16 20:08 36.9 77 20 186/94 (124) 99 Room Air 12/27/16 20:00 36.6 69 20 176/83 100 Room Air 12/27/16 17:23 36.8 87 18 156/99 (118) 95 Room Air 12/27/16 16:03 81 23 12/27/16 16:00 207/120 12/27/16 15:58 78 19 12/27/16 15:53 78 16 12/27/16 15:48 80 24 12/27/16 15:43 79 24 12/27/16 15:38 104 22 12/27/16 15:33 95 18 12/27/16 15:31 197/116 12/27/16 15:28 130 24 12/27/16 15:23 104 17 12/27/16 15:20 194/106 12/27/16 15:18 89 29 12/27/16 15:13 87 17 12/27/16 15:08 86 28 12/27/16 15:03 81 20 12/27/16 15:01 184/119 12/27/16 14:58 95 18 12/27/16 14:53 82 22 12/27/16 14:48 86 21 12/27/16 14:43 77 17 12/27/16 14:38 68 23 12/27/16 14:33 68 14 12/27/16 14:31 173/103 12/27/16 14:28 51 13 85 12/27/16 14:26 172/105 12/27/16 14:23 64 13 12/27/16 14:18 62 22 100 12/27/16 14:16 64 16 174/97 99 Room Air 12/27/16 14:15 174/97 12/27/16 14:13 58 96 12/27/16 13:38 62 18 12/27/16 13:36 122/71 12/27/16 13:33 72 15 126/77 12/27/16 13:32 132/77 12/27/16 13:32 61 132/77 70 126/77 82 122/71 12/27/16 12:48 64 24 97 12/27/16 12:43 58 24 123/67 91 12/27/16 12:39 98 Room Air 12/27/16 12:39 36.7 60 20 153/85 98 Room Air 12/27/16 12:38 60 18 96 12/27/16 12:35 57 12/27/16 12:34 153/85 (Alisa Azevedo PA-C) Physical Exam General Appearance: WD/WN, no apparent distress Eyes: PERRL, EOMI ENT: hearing grossly normal, pharynx normal Neck: no adenopathy, no JVD Respiratory/Chest: lungs clear, no respiratory distress, no accessory muscle use Cardiovascular: regular rate, rhythm, no murmur Abdomen: normal bowel sounds, non tender, soft, no organomegaly Extremities: non-tender, no pedal edema, no calf tenderness Neurologic/Psychiatric: alert, normal mood/affect, oriented x 3 Skin: normal color, warm/dry (Alisa Azevedo PA-C) Laboratory Results Last 24 Hours Test 12/27/16 13:05 12/27/16 13:16 12/27/16 15:40 12/27/16 20:43 White Blood Count 8.87 K/uL Red Blood Count 4.98 M/uL Hemoglobin 12.6 g/dL Hematocrit 41.7 % Mean Corpuscular Volume 83.7 fL Mean Corpuscular Hemoglobin 25.3 pg Mean Corpuscular Hemoglobin Concent 30.2 g/dl Platelet Count 225 K/uL Mean Platelet Volume 9.5 fL Neutrophils (%) (Auto) 75.9 % Lymphocytes (%) (Auto) 15.2 % Monocytes (%) (Auto) 6.8 % Eosinophils (%) (Auto) 1.4 % Basophils (%) (Auto) 0.5 % Neutrophils # (Auto) 6.74 K/uL Lymphocytes # (Auto) 1.35 K/uL Monocytes # (Auto) 0.60 K/uL Eosinophils # (Auto) 0.12 K/uL Basophils # (Auto) 0.04 K/uL RDW Standard Deviation 43.1 fL RDW Coefficient of Variation 14.2 % Immature Granulocyte % (Auto) 0.2 % Immature Granulocyte # (Auto) 0.02 K/uL Prothrombin Time 10.8 SECONDS Prothromb Time International Ratio 1.0 Activated Partial Thromboplast Time 22.1 SECONDS Partial Thromboplastin Ratio 0.9 Sodium Level 142 mmol/L Potassium Level 4.2 mmol/L Chloride Level 108 mmol/L Carbon Dioxide Level 25 mmol/L Anion Gap 9.0 mmol/L Blood Urea Nitrogen 24 mg/dl Creatinine 1.20 mg/dl Est Creatinine Clear Calc Drug Dose 37.1 ml/min Estimated GFR () 50.1 Estimated GFR (Non- 43.3 BUN/Creatinine Ratio 20.0 Random Glucose 133 mg/dl Calcium Level 8.7 mg/dl Magnesium Level 2.1 mg/dl Total Bilirubin 0.5 mg/dl Direct Bilirubin 0.1 mg/dl Aspartate Amino Transf (AST/SGOT) 17 U/L Alanine Aminotransferase (ALT/SGPT) 23 U/L Alkaline Phosphatase 100 U/L Troponin I < 0.015 ng/ml 0.025 ng/ml Total Protein 6.9 gm/dl Albumin 3.6 gm/dl Bedside Glucose 125 mg/dl Urine Color YELLOW Urine Appearance TURBID Urine pH 8.0 Urine Specific Stella 1.010 Urine Protein NEG Urine Glucose (UA) NEG Urine Ketones NEG Urine Occult Blood 1+ Urine Nitrite NEG Urine Bilirubin NEG Urine Urobilinogen NEG Urine Leukocyte Esterase LARGE Urine WBC (Auto) 10-30 /hpf Urine RBC (Auto) >30 /hpf Urine Hyaline Casts (Auto) 1-5 /lpf Urine Epithelial Cells (Auto) >30 /lpf Urine Bacteria (Auto) 1+ Thyroid Stimulating Hormone (TSH) 1.600 uIu/ml Test 12/28/16 07:19 Sodium Level 142 mmol/L Potassium Level 3.6 mmol/L Chloride Level 110 mmol/L Carbon Dioxide Level 23 mmol/L Anion Gap 9.0 mmol/L Blood Urea Nitrogen 21 mg/dl Creatinine 0.95 mg/dl Est Creatinine Clear Calc Drug Dose 45.8 ml/min Estimated GFR () 66.5 Estimated GFR (Non- 57.4 BUN/Creatinine Ratio 22.2 Random Glucose 89 mg/dl Calcium Level 8.7 mg/dl Troponin I 0.018 ng/ml (Alisa Azevedo, PAGopalC) Assessment and Plan 76yo female with history of fairly advanced dementia, prior SDH due to head trauma from fall requiring meño hole, and HTN presenting with 2 episodes of syncope Syncope - first episode was during a bowel movement and certainly this could have been vasovagally mediated. The cause of the second episode is not as clear but possibly in the setting of infectious process with ? UTI and slight dehydration as she has presented this way with dehydration twice in the past to the ER. - Echocardiogram ordered- await results - Cardiac enzymes were trended and increased to 0.25, and then trended down to 0.18, but not indicative of cardiac ischemia - UA showing large esterase and 1+ bacteriuria, also had foul smelling urine at time of admit, no culture was started, will ask for lab to culture now. - On ancef IV at this point so she's covered. - Cont NSS at 80 mL/hr for maintenance fluids- pt is tolerating diet without difficulty, can d/c fluids if the line itself aggitates/confuses the patient. She seems confused by the numerous wires from telemetry leads and from the fluids running in. - Check carotid duplex to be complete. - Neuro exam was normal at the time of admit HTN - Increase lisinopril to 20 mg daily as she is still hypertensive. Possible that this could have been hypertensive encephalopathy on top of infectious etiology - awaiting ucx. LBBB - this is chronic. Dementia - advanced. - Suspect she will have worsening confusion in the hospital. - Bedside sitter, reorientation as first line. - Haldol 2.5mg PO q8h prn severe agitation/delirium. CKD stage 3 - Follow BMP with am labs Mild cervical neck pain s/p syncope with fall - cervical spine CT reviewed and is negative for acute process or fracture. h/o SDH due to fall - noted; head CT today w/o new ICH. DVT proph - lovenox once daily, teds, scds Disposition: From home, PT/OT evals today (Alisa Azevedo, PA-C) I agree with BROOKLYNN assessment and plan and have seen and examined pt myself Resting comfortably in bed HTN uncontrolled Inc in lisinopril Lsb reviewed Awaiting urinary cx as well COnt to monitor at this time Will need PT/OT (Al Rojas D.O.)
[2016-12-28] MEDS ORDERED: LISINOPRIL 10 MG TAB PO ONE (12:00)
[2016-12-28] MEDS: CEFAZOLIN IV 1,000 MG in DEXTROSE 5% 50ML 50 ML IV SCH ×2 (12:44→22:23)
--- NOTE | 2016-12-28 14:46 | ECHOCARDIOGRAM REPORT ---
*NOTICE TO RECEIVING CONSTITUTION PARTY AGENCY This information is strictly Confidential and protected under [place] law. [place] law prohibits you from making any further disclosure of this information unless further disclosure is expressly permitted by the written consent of the person to whom it pertains or is authorized by law. A general authorization for the release of medical or other information is not sufficient for this purpose. Hospital accepts no responsibility if the information is made available to any other person, INCLUDING THE PATIENT. Interpretation Summary * Name: OLINDA DAS Study Date: 12/28/2016 10:33 AM BP: 151/71 mmHg * Patient Location: [facility] HR: 88 * : 1940 (M/d/yyyy) Gender: Female Height: 64 in * Age: 76 yrs Ethnicity: CA Weight: 154 lb * Ordering Physician: Juan R Monteiro * Referring Physician: MARIA ISABEL * Performed By: Tarsha Rodriguez RDCS * * Reason For Study: SYNCOPE * BSA: 1.8 m2 * Normal biventricular systolic function. * Moderate concentric left ventricular hypertrophy. * Class 1 LV diastolic dysfunction. * Normal chamber dimensions. * Mild tricuspid regurgitation. * Normal estimated right ventricular systolic and central venous pressures. * Compared to an echo of June 06, 2013 there has been no significant interval change. * -- Conclusions -- * Aortic valve sclerosis mild, without significant aortic valvular stenosis. Procedure Details * A complete two-dimensional transthoracic echocardiogram was performed (2D, M-mode, Doppler and color flow Doppler). Left Ventricle * The left ventricle is normal in size. * There is moderate concentric left ventricular hypertrophy. * Ejection Fraction = 65-70%. * A full diastolic examination was done with clinical findings of Class I diastolic dysfunction. * Left ventricular systolic function is normal. * The left ventricular wall motion is normal. * Septal motion is consistent with conduction abnormality. Right Ventricle * The right ventricle is normal in size and function. Atria * The left atrial size is normal. * Right atrial size is normal. * There is no evidence of atrial septal defect, but resolution does not allow assessment for a patent foramen ovale. Mitral Valve * There is mild mitral annular calcification. * There is no mitral valve stenosis. * There is no mitral regurgitation noted. Tricuspid Valve * The tricuspid valve is not well visualized. * There is no tricuspid stenosis. * There is mild tricuspid regurgitation. * Right ventricular systolic pressure is normal. Aortic Valve * The aortic valve is trileaflet. * The aortic valve opens well. * Aortic valve sclerosis mild, without significant aortic valvular stenosis. * Aortic stenosis is absent. * No aortic regurgitation is present. Pulmonic Valve * The pulmonic valve is not well seen, but is grossly normal. * There is no pulmonic valvular stenosis. * There is no pulmonic valvular regurgitation. Great Vessels * The aortic root is normal size. Pericardium/Pleural * There is no pericardial effusion. Great Vessels * Normal inferior vena cava diameter and respiratory variation suggests normal central venous pressure. MMode 2D Measurements and Calculations IVSd 1.7 cm IVSs 2.2 cm LVIDd 2.9 cm LVIDs 1.9 cm LVPWd 1.6 cm LVPWs 1.9 cm IVS/LVPW 1.1 FS 33.6 % EDV(Teich) 32.5 ml ESV(Teich) 11.7 ml EF(Teich) 64.1 % EDV(cubed) 24.6 ml ESV(cubed) 7.2 ml EF(cubed) 70.7 % % IVS thick 30.3 % % LVPW thick 16.4 % LV mass(C)d 177.3 grams LV mass(C)dI 101.3 grams/m\S\2 LV mass(C)s 172.8 grams LV mass(C)sI 98.7 grams/m\S\2 SV(Teich) 20.8 ml SI(Teich) 11.9 ml/m\S\2 SV(cubed) 17.4 ml SI(cubed) 9.9 ml/m\S\2 Ao root diam 3.0 cm Ao root area 7.2 cm\S\2 LA dimension 3.7 cm LA/Ao 1.2 LVAd ap4 27.6 cm\S\2 LVLd ap4 7.4 cm EDV(MOD-sp4) 84.9 ml EDV(sp4-el) 87.5 ml LVAs ap4 14.9 cm\S\2 LVLs ap4 6.3 cm ESV(MOD-sp4) 29.9 ml ESV(sp4-el) 30.0 ml EF(MOD-sp4) 64.8 % EF(sp4-el) 65.7 % LVAd ap2 27.9 cm\S\2 LVLd ap2 8.1 cm EDV(MOD-sp2) 80.8 ml EDV(sp2-el) 81.8 ml LVAs ap2 15.8 cm\S\2 LVLs ap2 6.7 cm ESV(MOD-sp2) 35.8 ml ESV(sp2-el) 31.6 ml EF(MOD-sp2) 55.7 % EF(sp2-el) 61.3 % LVLd %diff 8.1 % EDV(MOD-bp) 86.7 ml LVLs %diff 6.5 % ESV(MOD-bp) 33.2 ml EF(MOD-bp) 61.7 % SV(MOD-sp4) 55.0 ml SI(MOD-sp4) 31.4 ml/m\S\2 SV(MOD-sp2) 45.0 ml SI(MOD-sp2) 25.7 ml/m\S\2 SV(MOD-bp) 53.5 ml SI(MOD-bp) 30.6 ml/m\S\2 SV(sp4-el) 57.5 ml SI(sp4-el) 32.9 ml/m\S\2 SV(sp2-el) 50.1 ml SI(sp2-el) 28.6 ml/m\S\2 Doppler Measurements and Calculations MV E max lesly 70.3 cm/sec MV A max lesly 116.9 cm/sec MV E/A 0.60 MV dec time 0.51 sec Ao V2 max 153.2 cm/sec Ao max PG 9.4 mmHg Ao max PG (full) 0.45 mmHg LV V1 max PG 8.9 mmHg LV V1 max 149.5 cm/sec TR max lesly 252.5 cm/sec
[2016-12-28] MEDS: SIMVASTATIN 40 MG TAB PO SCH (21:00)
--- NOTE | 2016-12-28 23:26 | DIAGNOSTIC IMAGING REPORT ---
CAROTID DOPPLER NECK ART CLINICAL HISTORY: 76 years-old Female with syncope, eval for ICA stenosis. COMPARISON: Cervical spine CT 12/27/2016 TECHNIQUE: Multiple real time sonographic images of the carotid bifurcations were obtained assessing pascal scale, color Doppler and spectral wave form appearance FINDINGS: The exam is limited secondary to patient cooperation. The patient refused the blood pressure component of the study. RIGHT CAROTID: The peak systolic velocity measured 138 cm/sec. The end diastolic velocity measured 27 cm/sec. The ICA to CCA ratio measured 2.5 which correlates with a stenosis of 50-69%. There is a [id number] amount of mixed plaquing within the right carotid bulb. LEFT CAROTID: The peak systolic velocity measured 137 cm/sec. The end diastolic velocity measured 16 cm/sec. The ICA to CCA ratio measured 1.5 which correlates with a stenosis of 50-69%. Moderate amount of mixed plaquing in the left carotid bulb is present. There is normal antegrade vertebral flow bilaterally. IMPRESSION: 1. Atherosclerotic plaquing of the bilateral carotid bulbs and proximal internal carotid arteries is present causing associated 50-69% stenosis of the internal carotid arteries bilaterally. 2. Normal antegrade vertebral flow bilaterally. The above report was generated using voice recognition software. It may contain grammatical, syntax or spelling errors. Electronically signed by: Paco Mckeon M.D. 12/28/2016 11:25 PM Dictated Date/Time: 12/28/2016 11:20 PM
[2016-12-28] MEDS ORDERED: HydrALAZINE HCL 20 MG/ML VIAL IV. STA (23:59)
[2016-12-29 03:34] VITALS: BP 176/82; PULSE 77; TEMP 36.6; O2SAT 96
[2016-12-29] MEDS: SODIUM CHLORIDE 0.9% 1000ML 1,000 ML IV SCH (04:49)
[2016-12-29 07:13] VITALS: BP 148/82; PULSE 68; TEMP 36.8; O2SAT 98
[2016-12-29 08:00] VITALS: O2SAT 98
[2016-12-29] MEDS ORDERED: LSN20 PO (08:39)
[2016-12-29] MEDS ORDERED: NRV/10 PO (08:39)
[2016-12-29] MEDS: ENOXAPARIN 40 MG/0.4 ML SYR SQ SCH ×2 (08:46→10:11)
[2016-12-29] MEDS: SERTRALINE HCL 50 MG TAB PO SCH (08:46)
[2016-12-29] MEDS: DONEPEZIL HCL 5 MG TAB PO SCH (08:46)
--- NOTE | 2016-12-29 08:49 | Discharge Instructions ---
Discharge Instructions Date of Service Dec 29, 2016. Admission Reason for Admission: Syncope Discharge Discharge Diagnosis / Problem: Syncope, vasovagal Discharge Goals Goal(s): Decrease discomfort, Improve function Activity Recommendations Activity Limitations: resume your previous activity Lifting Limitations: no more than 25 pounds, gradually increase as tolerated Exercise/Sports Limitations: gradually increase as tolerated Shower/Bathe: no limitations (with assistance) Driving or Machine Use: DO NOT DRIVE . Instructions / Follow-Up Instructions / Follow-Up You were admitted to [facility] with syncope (passing out) and diagnosed with vasovagal episode causing syncope. Your blood pressure was very high during admission stay, and it was thought that syncope could also have been due high blood pressure and dehydration. - During your stay here you were treated with intravenous fluids, supportive care, and antihypertensive agents to help control your blood pressure. - Imaging studies which were completed include echocardiogram (ultrasound of the heart), and were abnormal with grade 1 diastolic dysfunction. Continue taking all medications as prescribed. Follow up: Follow up with your Primary Care Provider within 1 week. Current Hospital Diet Patient's current hospital diet: AHA Diet (Heart Healthy) Discharge Diet Recommended Diet: AHA Diet (Heart Healthy) Pending Studies Studies pending at discharge: no Medical Emergencies . Who to Call and When: Medical Emergencies: If at any time you feel your situation is an emergency, please call 911 immediately. . Non-Emergent Contact Non-Emergency issues call your: Primary Care Provider Call Non-Emergent contact if: you have a fever, temperature is above 100.5, your pain is not controlled, your pain is worsening, your pain is unusual for you, your pain is concerning you, you have any medication questions . Past History Medical & Surgical History: (1) Syncope (2) Dementia . "Provider Documentation" section prepared by Aaliyah Azevedo. . VTE Core Measure Inpt VTE Proph given/why not?: Enoxaparin (Lovenox)SQ
[2016-12-29] MEDS ORDERED: AMLODIPINE BESYLATE 5 MG TAB PO SCH (09:00)
[2016-12-29] MEDS ORDERED: LISINOPRIL 20 MG TAB PO SCH (09:00)
[2016-12-29 09:10] VITALS: BP 148/82; PULSE 68; TEMP 36.8; O2SAT 98
[2016-12-29] MEDS: HALOPERIDOL 5 MG TAB PO PRN (10:23)
[2016-12-29] MEDS: CEFAZOLIN IV 1,000 MG in DEXTROSE 5% 50ML 50 ML IV SCH (10:23)
--- NOTE | 2016-12-29 14:07 | Discharge Summary ---
Discharge Summary Date of Service Dec 29, 2016. (Alisa Azevedo PA-C) Discharge Summary Admission Date: Dec 27, 2016 at 15:16 Discharge Date: Dec 29, 2016 Discharge Disposition: Home Principal Diagnosis: Syncopal episode, vasovagal and dehydration Problems/Secondary Diagnoses: (1) Dementia Status: Chronic Advanced dementia, prior SDH due to head trauma from fall requiring meño hole, and HTN Immunizations: Have You Had Influenza Vaccine: Yes Influenza Vaccine Date: Mar 06, 2013 History of Tetanus Vaccine?: Unknown Tetanus Immunization Date: Jul 23, 2004 History of Pneumococcal: No Pneumococcal Date: Jul 31, 2007 History of Hepatitis B Vaccine: No Procedures: CT HEAD WITHOUT CONTRAST (CT) CLINICAL HISTORY: Altered mental status. Syncope. Sudden onset of weakness. Mild head trauma. COMPARISON STUDY: 07/15/2016 TECHNIQUE: Axial CT of the brain is performed from the vertex to the skull base. IV contrast was not administered for this examination. A dose lowering technique was utilized adhering to the principles of ALARA. CT DOSE: 614.27 mGy.cm FINDINGS: No intra or extra-axial mass lesions are visualized. There is no CT evidence of acute cortical infarction. There is no evidence of midline shift. There is no acute hemorrhage. No calvarial fractures are visualized. There are patchy white matter hypodensities likely on a small vessel basis. There is stable mild ventricular dilatation likely secondary to volume loss There is no evidence of acute sinusitis. Old calvarial meño holes are visualized. IMPRESSION: No acute intracranial findings Electronically signed by: Mitch Corbin M.D. 12/27/2016 2:07 PM Dictated Date/Time: 12/27/2016 2:05 PM The status of this report is Signed. CHEST ONE VIEW PORTABLE CLINICAL HISTORY: Altered mental status. Weakness. Syncope. COMPARISON STUDY: 07/15/2016 FINDINGS: The heart is mildly enlarged. There is no failure. There is no lobar pulmonary consolidation.[ There is a triangle opacity at the right medial lung base, likely atelectatic. There are no pleural effusions IMPRESSION: Small triangular opacity at the right medial lung base, likely atelectatic. No evidence of failure. No evidence of lobar consolidation Electronically signed by: Mitch Corbin M.D. 12/27/2016 2:36 PM Dictated Date/Time: 12/27/2016 2:35 PM The status of this report is Signed. CAROTID DOPPLER NECK ART CLINICAL HISTORY: 76 years-old Female with syncope, eval for ICA stenosis. COMPARISON: Cervical spine CT 12/27/2016 TECHNIQUE: Multiple real time sonographic images of the carotid bifurcations were obtained assessing pascal scale, color Doppler and spectral wave form appearance FINDINGS: The exam is limited secondary to patient cooperation. The patient refused the blood pressure component of the study. RIGHT CAROTID: The peak systolic velocity measured 138 cm/sec. The end diastolic velocity measured 27 cm/sec. The ICA to CCA ratio measured 2.5 which correlates with a stenosis of 50-69%. There is a [id number]-glwgfhqr amount of mixed plaquing within the right carotid bulb. LEFT CAROTID: The peak systolic velocity measured 137 cm/sec. The end diastolic velocity measured 16 cm/sec. The ICA to CCA ratio measured 1.5 which correlates with a stenosis of 50-69%. Moderate amount of mixed plaquing in the left carotid bulb is present. There is normal antegrade vertebral flow bilaterally. IMPRESSION: 1. Atherosclerotic plaquing of the bilateral carotid bulbs and proximal internal carotid arteries is present causing associated 50-69% stenosis of the internal carotid arteries bilaterally. 2. Normal antegrade vertebral flow bilaterally. The above report was generated using voice recognition software. It may contain grammatical, syntax or spelling errors. Electronically signed by: Paco Mckeon M.D. 12/28/2016 11:25 PM Dictated Date/Time: 12/28/2016 11:20 PM The status of this report is Signed. CERVICAL SPINE W/O CT DOSE: 446.00 mGycm HISTORY: Trauma eval for c-spine fracture TECHNIQUE: Multiaxial CT images of the cervical spine were performed and reformatted in the sagittal and coronal plane without the use of contrast. A dose lowering technique was utilized adhering to the principles of ALARA. COMPARISON: None. FINDINGS: No fractures. No subluxation. Prevertebral soft tissues and the C1-C2 interval are intact. No pneumothorax. Chronic apical fibrotic change. Degenerative disc change C5-C7. IMPRESSION: Degenerative change. No acute process. The above report was generated using voice recognition software. It may contain grammatical, syntax or spelling errors. Electronically signed by: Lance Doty M.D. 12/27/2016 4:48 PM Dictated Date/Time: 12/27/2016 4:46 PM The status of this report is Signed. (Alisa Azevedo PA-C) Medication Reconciliation New Medications: Amlodipine Besylate (Amlodipine Besylate) 10 Mg Tab 10 MG PO QAM for 30 Days, #30 TAB Lisinopril (Lisinopril) 20 Mg Tab 20 MG PO QAM for 30 Days, #30 TAB Continued Medications: Donepezil HCl (Aricept) 5 Mg Tab 5 MG PO DAILY Memantine Hcl (Namenda Xr) 14 Mg Cap 14 MG PO QAM Sertraline (Zoloft) 50 Mg Tab 50 MG PO DAILY Simvastatin (Zocor) 40 Mg Tab 40 MG PO QPM Discontinued Medications: Ramipril (Ramipril) 5 Mg Cap 5 MG PO QAM Discharge Exam The patient was seen and examined this morning. Pt is mildly agitated when I visited her this morning. She was unable to tell me where she was, and didn't know why she had a magazine in front of her, etc. She reports feeling overall normal. Review of Systems: Constitutional: No fever, No chills, No sweats Eyes: No redness, No diplopia ENT: No tinnitus, No trouble swallowing Respiratory: No shortness of breath, No dyspnea on exertion Cardiovascular: No chest pain, No edema, No claudication Abdomen: No pain, No nausea, No vomiting Musculoskeletal: No joint pain, No swelling, No calf pain Neurologic: No paralysis, No weakness, No numbness/tingling Endocrine: No fatigue Integumentary: No rash, No itch Physical Exam: General Appearance: WD/WN, no apparent distress Eyes: PERRL, EOMI ENT: hearing grossly normal, pharynx normal Neck: supple, thyroid normal Respiratory/Chest: lungs clear, no respiratory distress, no accessory muscle use Cardiovascular: regular rate, rhythm, no JVD, no murmur, normal peripheral pulses Abdomen / GI: normal bowel sounds, non tender, soft Extremities: normal inspection, no calf tenderness, no pedal edema Neurologic/Psychiatric: alert, + disoriented, + pertinent finding (slightly agitated, + dementia) Skin: normal color, warm/dry (Alisa Azevedo PA-C) Hospital Course H&P per Gumaro Monteiro MD. History of Present Illness Source: family (daughter) 76yo female with history of dementia and prior syncopal episode who presents with two episodes of syncope earlier today. First occurred in the upstairs bathroom at her home. She apparently passed out while having a bowel movement. Her daughter and the home health nurse brought her downstairs and she had a 2nd episode of syncope while standing in between the door frame between the dining room & living room. She has "life alert" and after the first episode of syncope this was activated. Thus, EMS arrived very quickly after the syncopal spell in the living area on the first floor. Just prior to the 2nd episode she apparently was talking, joking, and then " just went out." There was no seizure activity per family. She regained consciousness relatively quickly per family. One of her daughters was at bedside during my assessment and reports that she saw her mother last night and at that time seemed to be healthy and acting normally. General Appearance: WD/WN, no apparent distress, + pertinent finding (a little agitated at times but otherwise NAD; speech clear, no dysarthria or aphasia) Head: normocephalic, atraumatic Eyes: PERRL, EOMI ENT: TMs normal, pharynx normal (no bite otero) Neck: supple, no adenopathy, thyroid normal, no JVD Respiratory/Chest: lungs clear, no respiratory distress, no accessory muscle use Cardiovascular: regular rate, rhythm, no gallop, no murmur, normal peripheral pulses Abdomen/GI: normal bowel sounds, non tender, soft, no organomegaly Genitourinary - Female: + pertinent finding (foul-smelling urine smell in groin region during the exam) Extremities/Musculoskelatal: no pedal edema Neurologic/Psych: no motor/sensory deficits, alert, normal reflexes, + disoriented, + pertinent finding (no facial droop) Skin: no rash (no signs of trauma, no rash) Hospital Course: 76yo female with history of fairly advanced dementia, prior SDH due to head trauma from fall requiring meño hole, and HTN presenting with 2 episodes of syncope Syncope - first episode was during a bowel movement and certainly this could have been vasovagally mediated. The cause of the second episode is not as clear but possibly in the setting of infectious process with ? UTI and slight dehydration as she has presented this way with dehydration twice in the past to the ER. - Echocardiogram complete * Normal biventricular systolic function. * Moderate concentric left ventricular hypertrophy. * Class 1 LV diastolic dysfunction. * Normal chamber dimensions. * Mild tricuspid regurgitation. * Normal estimated right ventricular systolic and central venous pressures. * Compared to an echo of June 06, 2013 there has been no significant interval change. * -- Conclusions -- * Aortic valve sclerosis mild, without significant aortic valvular stenosis. - Cardiac enzymes were trended and increased to 0.25, and then trended down to 0.18, but not indicative of cardiac ischemia - UA showing large esterase and 1+ bacteriuria, also had foul smelling urine at time of admit, no culture was started and urine sample was thrown out, was on ancef x 2 days but displays no urinary symptoms at this time. Encouraged the pt to remain well hydrated. - Cont NSS at 80 mL/hr for maintenance fluids- pt is tolerating diet without difficulty - Pt refused carotid doppler. - Neuro exam was normal at the time of admit - remains normal HTN - Increase lisinopril to 20 mg daily as she is still hypertensive. Possible that this could have been hypertensive encephalopathy on top of infectious etiology - awaiting ucx. LBBB - this is chronic. Dementia - advanced. - Suspect she will have worsening confusion in the hospital. - Bedside sitter, reorientation as first line. - Haldol 2.5mg PO q8h prn severe agitation/delirium. CKD stage 3 - Follow BMP with am labs Mild cervical neck pain s/p syncope with fall - cervical spine CT reviewed and is negative for acute process or fracture. h/o SDH due to fall - noted; head CT today w/o new ICH. DVT proph - lovenox once daily, teds, scds Disposition: From home, discharge to home today Total Time Spent: Greater than 30 minutes This includes examination of the patient, discharge planning, medication reconciliation, and communication with other providers. (Alisa Azevedo, SANDIPC) I agree with BROOKLYNN assessment and plan and have seen and examined pt myself Pt reports improvement in dizziness No further syncope VSS Labs reviewed BP improved with addition of norvasc Stable for discharge home (Al Rojas, D.O.) Discharge Instructions Please refer to the electronic Patient Visit Report (Discharge Instructions) for additional information. (Alisa Azevedo, KALYAN) Follow-Up Follow up with your Primary Care Provider within 1 week. (Alisa Azevedo, KALYAN) Additional Copies To Chet Espinal M.D.
== END 2016-12-29 12:00 | disposition home health service (06) ==
LOC: EDBD 12:28 → C.EDB 12:29 → C.MED 15:16 → ENRESERV 16:02
PROVIDERS: ADMIT Internal Medicine; ATTEND Hospitalist
DX: R55 Syncope and collapse (principal); F03.90 Unspecified dementia, unspecified severity, without behavioral disturbance, psychotic disturbance, mood disturbance, and anxiety; I12.9 Hypertensive chronic kidney disease with stage 1 through stage 4 chronic kidney disease, or unspecified chronic kidney disease; N18.3 Chronic kidney disease, stage 3 (moderate); I44.7 Left bundle-branch block, unspecified; E78.5 Hyperlipidemia, unspecified; M54.2 Cervicalgia; Z79.899 Other long term (current) drug therapy; Z87.820 Personal history of traumatic brain injury

== ENCOUNTER 2017-01-08 13:10 | Inpatient (IN) | payer OTHER, BC ==
[~2017-01-08] VITALS: Ht 162.6 cm; Wt 67.2 kg
[~2017-01-08 13:10] MED LIST changes: +LSN20 PO; +NRV/10 PO; -RAMI5CAP PO; +SERT50TA PO
[2017-01-08] MEDS ORDERED: SODIUM CHLORIDE 0.9% 500ML 500 ML IV STA (13:48)
--- NOTE | 2017-01-08 13:54 | EMERGENCY ROOM VISIT NOTE ---
History Report prepared by Zack: Barbi Schumacher Under the Supervision of: Dr. Kevin Buck M.D. First contact with patient: 13:40 Chief Complaint: ILLNESS Stated Complaint: Weakness, Confusion History of Present Illness The patient is a 76 year old female who presents to the Emergency Room for evaluation of generalized weakness and confusion. Patient with history of dementia which has been slowly worsening over last few years, including previous SDH s/p fall requiring meño hole. She was admitted last week for generalized weakness/dehydration after multiple syncopal episodes. Over last 2- 3 days notes worsening confusion, not eating, and now inability to walk. Unable to get her to take medications today. Falling asleep easily and unable to get her up today. No fevers, vomiting, nor other symptoms, but notes she will not talk to him very much and no longer even remembers his name (something she did yesterday). Nothing makes better/worse. No medications prior to arrival. notes recent change to BP meds but he doesn't know what they are. He notes he is no longer able to care for her at home, even with help of home health they currently have. Denies known fall, but he is not sure as he is not "always" with her. Source of History: patient Position: other (generalized) Associated Symptoms: No fevers, No vomiting Review of Systems Unable to obtain full ROS as patient dementia/confusion too advanced. Past Medical & Surgical Medical Problems: (1) Declining functional status (2) Dementia (3) Hyperlipidemia (4) Syncope Family History no pertinent family history stated. Social History Smoking Status: Former Smoker Alcohol Use: none Drug Use: none Marital Status: Housing Status: lives with family Occupation Status: unemployed Current/Historical Medications Scheduled Amlodipine Besylate (Amlodipine Besylate), 10 MG PO QAM Donepezil HCl (Aricept), 5 MG PO DAILY Lisinopril (Lisinopril), 20 MG PO QAM Memantine Hcl (Namenda Xr), 14 MG PO QAM Sertraline (Zoloft), 50 MG PO DAILY Simvastatin (Zocor), 40 MG PO QPM Allergies Coded Allergies: No Known Allergies (Verified , 01/08/17) Physical Exam Vital Signs Date Time Temp Pulse Resp B/P (MAP) Pulse Ox O2 Delivery O2 Flow Rate FiO2 01/08/17 15:26 80 20 160/80 96 01/08/17 13:30 36.7 81 24 141/65 95 Room Air 01/08/17 13:29 82 Physical Exam GENERAL: Patient is elderly/confused appearing and in no acute distress. She is dehydrated, easily falls asleep and unable to understand most questions. HEENT: No acute trauma, normocephalic atraumatic, mucous membranes moist, no nasal congestion, no scleral icterus. NECK: No stridor, no adenopathy, no meningismus, trachea is midline. LUNGS: No dyspnea. Clear to auscultation and equal bilaterally. No wheeze, no rhonchi. HEART: Regular rate and rhythm. No murmurs, rubs, gallops appreciated. ABDOMEN: Soft, nontender, bowel sounds positive, no masses appreciated, no peritonitis. BACK: No midline tenderness, no CVA tenderness EXTREMITIES: Trace non-pitting edema bilateral lower legs, weakly moves legs to command, no cyanosis, no edema. NEUROLOGIC: Confused, dementia, no acute motor or sensory deficits, generalized weakness, no focal weakness, cranial nerves grossly intact. SKIN: No rash, no jaundice, no diaphoresis. Medical Decision & Procedures ER Provider Diagnostic Interpretation: Radiology results and stated below per my review and radiologist interpretation: CT OF THE HEAD WITHOUT CONTRAST FINDINGS: No acute intracranial hemorrhage, midline shift or mass effect is present. Ventricular dilatation is unchanged and likely due to central atrophy. The basilar cisterns are patent. There are no extra-axial collections. White matter hypodensity suggests small vessel disease. There are no findings to suggest acute dural sinus thrombosis or acute territorial infarct. Bilateral parietal calvarial meño holes are present. Visualized portions of the sinuses and mastoid air cells are clear. There is no calvarial fracture. IMPRESSION: No acute intracranial findings. Electronically signed by: Rodrigue Cowan M.D. CHEST ONE VIEW PORTABLE FINDINGS: The patient is rotated. Moderate cardiomegaly is unchanged. Pulmonary vascularity is normal. No consolidation is identified to suggest pneumonia. There is no pneumothorax or pleural effusion. There is slight elevation of the right hemidiaphragm. IMPRESSION: No acute cardiopulmonary findings. Electronically signed by: Rodrigue Cowan M.D. Laboratory Results 01/08/17 14:25 Red Blood Count 5.28, Mean Corpuscular Volume 82.8, Mean Corpuscular Hemoglobin 25.0, Mean Corpuscular Hemoglobin Concent 30.2, Mean Platelet Volume 9.5, Neutrophils (%) (Auto) 86.0, Lymphocytes (%) (Auto) 5.5, Monocytes (%) (Auto) 7.9, Eosinophils (%) (Auto) 0.2, Basophils (%) (Auto) 0.2, Neutrophils # (Auto) 11.06, Lymphocytes # (Auto) 0.70, Monocytes # (Auto) 1.01, Eosinophils # (Auto) 0.02, Basophils # (Auto) 0.02 01/08/17 14:25 Test 01/08/17 14:25 01/08/17 14:30 White Blood Count 12.84 K/uL (4.8-10.8) Red Blood Count 5.28 M/uL (4.2-5.4) Hemoglobin 13.2 g/dL (12.0-16.0) Hematocrit 43.7 % (37-47) Mean Corpuscular Volume 82.8 fL (80-100) Mean Corpuscular Hemoglobin 25.0 pg (25-34) Mean Corpuscular Hemoglobin Concent 30.2 g/dl (32-36) Platelet Count 279 K/uL (130-400) Mean Platelet Volume 9.5 fL (7.4-10.4) Neutrophils (%) (Auto) 86.0 % Lymphocytes (%) (Auto) 5.5 % Monocytes (%) (Auto) 7.9 % Eosinophils (%) (Auto) 0.2 % Basophils (%) (Auto) 0.2 % Neutrophils # (Auto) 11.06 K/uL (1.4-6.5) Lymphocytes # (Auto) 0.70 K/uL (1.2-3.4) Monocytes # (Auto) 1.01 K/uL (0.11-0.59) Eosinophils # (Auto) 0.02 K/uL (0-0.5) Basophils # (Auto) 0.02 K/uL (0-0.2) RDW Standard Deviation 43.3 fL (36.4-46.3) RDW Coefficient of Variation 14.4 % (11.5-14.5) Immature Granulocyte % (Auto) 0.2 % Immature Granulocyte # (Auto) 0.03 K/uL (0.00-0.02) Prothrombin Time 10.7 SECONDS (9.0-12.0) Prothromb Time International Ratio 1.0 (0.9-1.1) Activated Partial Thromboplast Time 26.2 SECONDS (21.0-31.0) Partial Thromboplastin Ratio 1.0 Anion Gap 7.0 mmol/L (3-11) Estimated GFR () 71.0 Estimated GFR (Non- 61.2 BUN/Creatinine Ratio 44.3 (10-20) Calcium Level 8.9 mg/dl (8.5-10.1) Phosphorus Level 2.7 mg/dl (2.5-4.9) Magnesium Level 1.8 mg/dl (1.8-2.4) Total Bilirubin 0.5 mg/dl (0.2-1) Direct Bilirubin 0.2 mg/dl (0-0.2) Aspartate Amino Transf (AST/SGOT) 25 U/L (15-37) Alanine Aminotransferase (ALT/SGPT) 23 U/L (12-78) Alkaline Phosphatase 111 U/L (45-117) Troponin I 0.015 ng/ml (0-0.045) Total Protein 7.6 gm/dl (6.4-8.2) Albumin 3.8 gm/dl (3.4-5.0) Urine Color YELLOW Urine Appearance CLEAR (CLEAR) Urine pH 6.0 (4.5-7.5) Urine Specific [place] 1.020 (1.000-1.030) Urine Protein TRACE (NEG) Urine Glucose (UA) NEG (NEG) Urine Ketones TRACE (NEG) Urine Occult Blood NEG (NEG) Urine Nitrite NEG (NEG) Urine Bilirubin NEG (NEG) Urine Urobilinogen NEG (NEG) Urine Leukocyte Esterase NEG (NEG) Urine WBC (Auto) 1-5 /hpf (0-5) Urine RBC (Auto) 0-4 /hpf (0-4) Urine Hyaline Casts (Auto) 1-5 /lpf (0-5) Urine Epithelial Cells (Auto) 10-20 /lpf (0-5) Urine Bacteria (Auto) NEG (NEG) Laboratory results as reviewed by me. Medications Administered Medications (Trade) Dose Ordered Sig/Srini Route Start Time Stop Time Status Last Admin Dose Admin Sodium Chloride 500 ml @ 999 mls/hr Q31M STAT IV 01/08/17 13:48 01/08/17 14:18 DC 01/08/17 14:24 999 MLS/HR Sodium Chloride 1,000 ml @ 75 mls/hr [id number] STAT IV 01/08/17 15:24 01/09/17 04:43 01/08/17 15:31 75 MLS/HR ECG Indication: altered mental status Rate (beats per minute): 69 Rhythm: normal sinus Findings: LBBB, no acute ischemic change, no ectopy ED Course 1345: The patient was evaluated in room C5. A complete history and physical exam was performed. 1348: Sodium Chloride 500 ml @ 999 mls/hr. 1521: Discussed the patient's case with Dr. Eaton. The patient will be evaluated for further treatment and disposition. 1524: Sodium Chloride 1000 ml @ 75 mls/hr. 1530: Upon reevaluation, the patient is resting. Discussed results and treatment plan with the patient. She verbalized understanding and agreement with the treatment plan. The patient will be evaluated for further management. Medical Decision Differential: Sepsis, Infectious (UTI/Pneumonia/Meningitis/etc), Metabolic/ Electrolyte Abnormality, Cardiac, Hepatic, Endocrine, Toxicologic, Neurologic, amongst other pathologies entertained. 76 yr old female arrives with complaint of generalized weakness/confusion per . Significantly dehydrated by exam with BUN that has doubled since last trip. She is not septic nor other acute findings. No evidence trauma nor rhabdo. She was given IV fluids though given how deconditioned she is her can not care for her at home. With this being acute change will bring in for rehydration and possible placement. Medication Reconcilliation Current Medication List: was personally reviewed by me Blood Pressure Screening Patient's blood pressure: Normal blood pressure Blood pressure disposition: Did not require urgent referral Consults Time Called: 1518 Consulting Physician: Dr. Eaton Returned Call: 1521 Discussed the patient's case. The patient will be evaluated for further treatment and disposition. Impression Primary Impression: Dehydration Additional Impressions: Altered mental status Failure to thrive Scribe Attestation The scribe's documentation has been prepared under my direction and personally reviewed by me in its entirety. I confirm that the note above accurately reflects all work, treatment, procedures, and medical decision making performed by me. Departure Information Dispostion Being Evaluated By Hospitalist Referrals Chet Espinal M.D. (PCP) Patient Instructions [facility] Problem Qualifiers
--- NOTE | 2017-01-08 14:16 | DIAGNOSTIC IMAGING REPORT ---
CT OF THE HEAD WITHOUT CONTRAST CLINICAL HISTORY: Altered mental status. COMPARISON STUDY: Head CT December 27, 2016. CT DOSE: 537.48 mGy.cm TECHNIQUE: Helical axial images of the head were obtained without IV contrast. Automated exposure control was utilized for the study. A dose lowering technique was utilized adhering to the principles of ALARA. FINDINGS: No acute intracranial hemorrhage, midline shift or mass effect is present. Ventricular dilatation is unchanged and likely due to central atrophy. The basilar cisterns are patent. There are no extra-axial collections. White matter hypodensity suggests small vessel disease. There are no findings to suggest acute dural sinus thrombosis or acute territorial infarct. Bilateral parietal calvarial meño holes are present. Visualized portions of the sinuses and mastoid air cells are clear. There is no calvarial fracture. IMPRESSION: No acute intracranial findings. Electronically signed by: Rodrigue Cowan M.D. 01/08/2017 2:15 PM Dictated Date/Time: 01/08/2017 2:10 PM
--- NOTE | 2017-01-08 14:34 | DIAGNOSTIC IMAGING REPORT ---
CHEST ONE VIEW PORTABLE CLINICAL HISTORY: Altered mental status. COMPARISON STUDY: Chest radiograph December 27, 2016. FINDINGS: The patient is rotated. Moderate cardiomegaly is unchanged. Pulmonary vascularity is normal. No consolidation is identified to suggest pneumonia. There is no pneumothorax or pleural effusion. There is slight elevation of the right hemidiaphragm. IMPRESSION: No acute cardiopulmonary findings. Electronically signed by: Rodrigue Cowan M.D. 01/08/2017 2:33 PM Dictated Date/Time: 01/08/2017 2:32 PM
[2017-01-08 14:41] LABS: BASO % 0.2 %; BASO ABS # 0.02 K/uL (0-0.2); COMPLETE YES; EOS % 0.2 %; HEMATOCRIT 43.7 % (37-47); IG% 0.2 %; LYMPH % 5.5 %; MEAN CELL VOLUME 82.8 fL (80-100); MEAN CORPUSCULAR HGB CONC 30.2 g/dl (32-36); MEAN PLATELET VOLUME 9.5 fL (7.4-10.4); MONO % 7.9 %; PLATELET COUNT 279 K/uL (130-400); RED BLOOD COUNT 5.28 M/uL (4.2-5.4); WHITE BLOOD COUNT 12.84 K/uL (4.8-10.8)
[2017-01-08 14:44] LABS: URINE APPEARANCE CLEAR (CLEAR); URINE BILIRUBIN NEG (NEG); URINE COLOR YELLOW; URINE NITRITE NEG (NEG); UROBILINOGEN NEG (NEG); ZZURINE CULT IF INDIC CATH NO
[2017-01-08 14:47] LABS: MANUAL MICROSCOPIC REQUIRED? NO; REVIEW REQ? NO
[2017-01-08 14:53] LABS: PROTHROMBIN TIME (PATIENT) 10.7 SECONDS (9.0-12.0)
[2017-01-08 15:06] LABS: ALT/SGPT 23 U/L (12-78); BLOOD UREA NITROGEN 40 mg/dl (7-18); BUN/CREATININE RATIO 44.3 (10-20); CALCIUM 8.9 mg/dl (8.5-10.1); CARBON DIOXIDE 25 mmol/L (21-32); CHLORIDE 108 mmol/L (98-107); GLUCOSE 120 mg/dl (70-99); MAGNESIUM 1.8 mg/dl (1.8-2.4); POTASSIUM 4.1 mmol/L (3.5-5.1); SODIUM 140 mmol/L (136-145)
[2017-01-08 15:12] LABS: ALKALINE PHOSPHATASE 111 U/L (45-117); AST/SGOT 25 U/L (15-37); PHOSPHORUS 2.7 mg/dl (2.5-4.9)
[2017-01-08] MEDS ORDERED: SODIUM CHLORIDE 0.9% 1000ML 1,000 ML IV STA (15:24)
[2017-01-08] MEDS ORDERED: ACETAMINOPHEN 325 MG TAB PO PRN (16:30)
[2017-01-08] MEDS ORDERED: ONDANSETRON INJ 2 MG/ML 2 ML VIAL IV PRN (16:30)
[2017-01-08] MEDS ORDERED: HALOPERIDOL LACTATE 5 MG/ML 1 ML VIAL IM PRN (16:30)
[2017-01-08] MEDS ORDERED: POLYETHYLENE (MIRALAX) 17 GM PACK PO PRN (16:30)
[2017-01-08] MEDS ORDERED: LORAZEPAM 2 MG/ML 1 ML VIAL IV PRN ×2 (16:30)
[2017-01-08 16:45] VITALS: O2SAT 96; Ht 162.6 cm; Wt 67.2 kg
--- NOTE | 2017-01-08 17:10 | History and Physical ---
History & Physical Date & Time of Service: Jan 08, 2017 at 17:04 Chief Complaint: Weakness, Sore/Wounds On Back Side Primary Care Physician: Chet Espinal M.D. History of Present Illness This patient brought in by her due to his inability to care for her at home. She has been not eating and drinking very well and has become so weak that she cannot stand. She had a few falls. She recently was discharged from our facility 10 days ago after syncopal episode. At that time she had some memory impairment was agitated. Her is sitting at the bedside and he understands that she is reaching a point where she is not able to sustain herself at home he is reluctant to place her in a fpc as he said that he has gone through this with his mother. He does have some home give caregiver insurance and wishes to have her at home at all costs. I asked him to consider the goals of care at the goals of care to keep her at home and keep her happy perhaps hospice services would be more appropriate than continuously readmitting her to the hospital. He entertained the slot will discuss this with his family and we will engage with hospice care on Tuesday. With her ER screening examination the only thing that has come about his she clinically appears dehydrated with dry mucous membranes dry teeth tenting of her skin and elevation of her BUN Past Medical/Surgical History Medical Problems: (1) Dementia Status: Chronic (2) Hyperlipidemia Status: Chronic Social History Smoking Status: Former Smoker Drug Use: none Marital Status: Housing status: lives with family Occupational Status: unemployed Immunizations History of Influenza Vaccine: Yes Influenza Vaccine Date: Mar 06, 2013 History of Tetanus Vaccine?: Unknown Tetanus Immunization Date: Jul 23, 2004 History of Pneumococcal: No Pneumococcal Date: Jul 31, 2007 History of Hepatitis B Vaccine: No Multi-Drug Resistant Organisms History of MDRO: No Allergies Coded Allergies: No Known Allergies (Verified , 01/08/17) Home Medications Scheduled Amlodipine Besylate (Amlodipine Besylate), 10 MG PO QAM Donepezil HCl (Aricept), 5 MG PO DAILY Lisinopril (Lisinopril), 20 MG PO QAM Memantine Hcl (Namenda Xr), 14 MG PO QAM Sertraline (Zoloft), 50 MG PO DAILY Simvastatin (Zocor), 40 MG PO QPM Review of Systems Review of systems is unable to be obtained the patient is not oriented to place she says she may have some pain but cannot localize it her says she's not been eating or drinking very well at home although he has been offering it to her Physical Exam Vital Signs Date Time Temp Pulse Resp B/P (MAP) Pulse Ox O2 Delivery O2 Flow Rate FiO2 01/08/17 15:26 80 20 160/80 96 01/08/17 13:30 36.7 81 24 141/65 95 Room Air 01/08/17 13:29 82 General Appearance: WD/WN, + mild distress Head: normocephalic, atraumatic Eyes: PERRL, EOMI ENT: hearing grossly normal, + pertinent finding (very dry mucous members and teeth) Neck: supple, trachea midline Respiratory/Chest: chest non-tender, lungs clear, normal breath sounds Cardiovascular: regular rate, rhythm, + systolic murmur (slight systolic murmur right upper sternal border) Abdomen/GI: normal bowel sounds, non tender, soft Back: normal inspection, no CVA tenderness Extremities/Musculoskelatal: no pedal edema, normal range of motion Neurologic/Psych: alert, + disoriented Skin: normal color, warm/dry Diagnostics Laboratory Results Results Past 24 Hours Test 01/08/17 14:25 01/08/17 14:30 Range/Units White Blood Count 12.84 4.8-10.8 K/uL Red Blood Count 5.28 4.2-5.4 M/uL Hemoglobin 13.2 12.0-16.0 g/dL Hematocrit 43.7 37-47 % Mean Corpuscular Volume 82.8 80-100 fL Mean Corpuscular Hemoglobin 25.0 25-34 pg Mean Corpuscular Hemoglobin Concent 30.2 32-36 g/dl Platelet Count 279 130-400 K/uL Mean Platelet Volume 9.5 7.4-10.4 fL Neutrophils (%) (Auto) 86.0 % Lymphocytes (%) (Auto) 5.5 % Monocytes (%) (Auto) 7.9 % Eosinophils (%) (Auto) 0.2 % Basophils (%) (Auto) 0.2 % Neutrophils # (Auto) 11.06 1.4-6.5 K/uL Lymphocytes # (Auto) 0.70 1.2-3.4 K/uL Monocytes # (Auto) 1.01 0.11-0.59 K/uL Eosinophils # (Auto) 0.02 0-0.5 K/uL Basophils # (Auto) 0.02 0-0.2 K/uL RDW Standard Deviation 43.3 36.4-46.3 fL RDW Coefficient of Variation 14.4 11.5-14.5 % Immature Granulocyte % (Auto) 0.2 % Immature Granulocyte # (Auto) 0.03 0.00-0.02 K/uL Prothrombin Time 10.7 9.0-12.0 SECONDS Prothromb Time International Ratio 1.0 0.9-1.1 Activated Partial Thromboplast Time 26.2 21.0-31.0 SECONDS Partial Thromboplastin Ratio 1.0 Sodium Level 140 136-145 mmol/L Potassium Level 4.1 3.5-5.1 mmol/L Chloride Level 108 98-107 mmol/L Carbon Dioxide Level 25 21-32 mmol/L Anion Gap 7.0 3-11 mmol/L Blood Urea Nitrogen 40 7-18 mg/dl Creatinine 0.90 0.60-1.20 mg/dl Estimated GFR () 71.0 Estimated GFR (Non- 61.2 BUN/Creatinine Ratio 44.3 10-20 Random Glucose 120 70-99 mg/dl Calcium Level 8.9 8.5-10.1 mg/dl Phosphorus Level 2.7 2.5-4.9 mg/dl Magnesium Level 1.8 1.8-2.4 mg/dl Total Bilirubin 0.5 0.2-1 mg/dl Direct Bilirubin 0.2 0-0.2 mg/dl Aspartate Amino Transf (AST/SGOT) 25 15-37 U/L Alanine Aminotransferase (ALT/SGPT) 23 12-78 U/L Alkaline Phosphatase 111 45-117 U/L Troponin I 0.015 0-0.045 ng/ml Total Protein 7.6 6.4-8.2 gm/dl Albumin 3.8 3.4-5.0 gm/dl Urine Color YELLOW Urine Appearance CLEAR CLEAR Urine pH 6.0 4.5-7.5 Urine Specific [place] 1.020 1.000-1.030 Urine Protein TRACE NEG Urine Glucose (UA) NEG NEG Urine Ketones TRACE NEG Urine Occult Blood NEG NEG Urine Nitrite NEG NEG Urine Bilirubin NEG NEG Urine Urobilinogen NEG NEG Urine Leukocyte Esterase NEG NEG Urine WBC (Auto) 1-5 0-5 /hpf Urine RBC (Auto) 0-4 0-4 /hpf Urine Hyaline Casts (Auto) 1-5 0-5 /lpf Urine Epithelial Cells (Auto) 10-20 0-5 /lpf Urine Bacteria (Auto) NEG NEG Microbiology Results 01/08/17 Urine Culture, Received Pending Diagnostic Radiology CT head shows no acute changes CXR normal Normal EKG (patient is laterally inverted T waves which are old) Impression Assessment and Plan 68-year-old female here with functional decline at home likely progressive dementia with unable to eat and drink appropriately. Patient be hydrated normal saline to evaluate her acute kidney injury with elevated B UN we will evaluate her or urinary tract infection We'll engage hospice care to determine if this best suited for the patient at home For dementia we'll maintain her Aricept and Namenda as well as her Zoloft We'll continue her lisinopril for blood pressure control Heparin for DVT prevention We will discontinue her Zocor Her is at the bedside and in may be warming up to the idea of having her stay home with hospice understanding that her memory impairment will eventually prevent her from meaningfully eating and drinking VTE Prophylaxis VTE Risk Assessment Done? Y/N: Yes Risk Level: Moderate
[2017-01-08 17:57] VITALS: BP 166/76; PULSE 88; TEMP 37.7; O2SAT 97
[2017-01-08] MEDS: SODIUM CHLORIDE 0.9% 1000ML 1,000 ML IV SCH (20:12)
[2017-01-08] MEDS ORDERED: SIMVASTATIN 40 MG TAB PO SCH (21:00)
[2017-01-08] MEDS: HEPARIN SOD 5000 UNIT/0.5 ML CARP SQ SCH (21:49)
[2017-01-08] MEDS: QUETIAPINE FUMARATE 25 MG TAB PO SCH (22:08)
[2017-01-09 00:16] VITALS: BP 141/74; PULSE 80; O2SAT 92
[2017-01-09] MEDS: SODIUM CHLORIDE 0.9% 1000ML 1,000 ML IV SCH (05:11)
[2017-01-09 06:25] LABS: HEMATOCRIT 39.8 % (37-47); MEAN CELL VOLUME 82.6 fL (80-100); MEAN CORPUSCULAR HEMOGLOBIN 25.1 pg (25-34); MEAN CORPUSCULAR HGB CONC 30.4 g/dl (32-36); MEAN PLATELET VOLUME 9.1 fL (7.4-10.4); PLATELET COUNT 235 K/uL (130-400); RED BLOOD COUNT 4.82 M/uL (4.2-5.4)
[2017-01-09 07:06] LABS: BUN/CREATININE RATIO 38.1 (10-20); CALCIUM 8.7 mg/dl (8.5-10.1); CREATININE 0.68 mg/dl (0.60-1.20); POTASSIUM 3.8 mmol/L (3.5-5.1)
[2017-01-09 07:36] VITALS: BP 151/78; PULSE 92; TEMP 36.4; O2SAT 95
[2017-01-09] MEDS: LISINOPRIL 20 MG TAB PO SCH (08:00)
[2017-01-09] MEDS: SERTRALINE HCL 50 MG TAB PO SCH (08:01)
[2017-01-09] MEDS: DONEPEZIL HCL 5 MG TAB PO SCH (08:01)
[2017-01-09] MEDS: AMLODIPINE BESYLATE 5 MG TAB PO SCH (08:01)
[2017-01-09] MEDS: HEPARIN SOD 5000 UNIT/0.5 ML CARP SQ SCH ×2 (08:05→21:00)
--- NOTE | 2017-01-09 10:20 | Progress Note ---
Progress Note Date of Service Jan 09, 2017. Progress Note Late in the evening of 01/08, the patients daughter called as her father had relayed the thought of hospice care for her mother The daughter is not opposed to the idea but also would like to explore snf placement as she has concerns about her fathers ability to provide care at home. This idea was strongly rebutted by her father, the patients . The family would like to have a meeting on thursday 01/11 at 130 pm with attending , hospice nurse and case management to discuss options.
--- NOTE | 2017-01-09 11:00 | Hospitalist Progress Note ---
Hospitalist Progress Note Date of Service Jan 09, 2017. (Melly Simons ., SANDIPC) Subjective Pt evaluation today including: conversation w/ patient, physical exam, chart review, lab review, review of inpatient medication list Patient very agitated with questioning and does not want to cooperate. Unable to obtain comprehensive ROS from patient, but she does deny chest pain, shortness of breath, abdominal pain, nausea and vomiting. Patient refused to answer any further questions. Per nursing, the patient has been agitated all morning when questioned and wants to be left alone. She did pull out her IV line earlier this morning and repeatedly says to me that she is going to "leave this place." Additional Comments: Unable to obtain reliable ROS from patient due to mental status. (Melly Simons ., SANDIPC) Objective Vital Signs Date Time Temp Pulse Resp B/P (MAP) Pulse Ox O2 Delivery O2 Flow Rate FiO2 01/09/17 07:36 36.4 92 20 151/78 (102) 95 01/09/17 00:16 80 20 141/74 (96) 92 Room Air 01/09/17 00:00 Room Air 01/08/17 20:00 Room Air 01/08/17 17:57 37.7 88 20 166/76 (106) 97 Room Air 01/08/17 17:13 91 22 175/87 96 Room Air 01/08/17 16:45 96 Room Air 01/08/17 15:26 80 20 160/80 96 01/08/17 13:30 36.7 81 24 141/65 95 Room Air 01/08/17 13:29 82 (Melly Simons ., SANDIPC) Physical Exam Notes: Exam limited as patient is agitated and started to refuse to be examined partway through. Attempted to explain my role, what I was doing and why, but she does not want to participate. General appearance: +Mild distress secondary to agitation. Well-developed, well-nourished Head: Normocephalic, atraumatic Eyes: Normal inspection ENT: Normal ENT inspection, hearing grossly normal Neck: No JVD, trachea midline Respiratory/Chest: Lungs clear to auscultation, normal breath sounds, no respiratory distress Cardiovascular: Regular rate & rhythm, no gallop, no murmur Abdomen/GI: Normal bowel sounds, non-tender, soft Extremities/Musculoskeletal: Normal inspection, no calf tenderness, no pedal edema Neurological/Psych: +Unable to assess orientation. Pt oriented to self but then refused to answer further orientation questions. Pt agitated and annoyed when asked questions. Alert Skin: Normal color, warm/dry, no rash (Melly Simons, KALYAN) Laboratory Results Last 24 Hours Test 01/08/17 14:25 01/08/17 14:30 01/09/17 05:51 White Blood Count 12.84 K/uL 10.20 K/uL Red Blood Count 5.28 M/uL 4.82 M/uL Hemoglobin 13.2 g/dL 12.1 g/dL Hematocrit 43.7 % 39.8 % Mean Corpuscular Volume 82.8 fL 82.6 fL Mean Corpuscular Hemoglobin 25.0 pg 25.1 pg Mean Corpuscular Hemoglobin Concent 30.2 g/dl 30.4 g/dl Platelet Count 279 K/uL 235 K/uL Mean Platelet Volume 9.5 fL 9.1 fL Neutrophils (%) (Auto) 86.0 % Lymphocytes (%) (Auto) 5.5 % Monocytes (%) (Auto) 7.9 % Eosinophils (%) (Auto) 0.2 % Basophils (%) (Auto) 0.2 % Neutrophils # (Auto) 11.06 K/uL Lymphocytes # (Auto) 0.70 K/uL Monocytes # (Auto) 1.01 K/uL Eosinophils # (Auto) 0.02 K/uL Basophils # (Auto) 0.02 K/uL RDW Standard Deviation 43.3 fL 43.8 fL RDW Coefficient of Variation 14.4 % 14.5 % Immature Granulocyte % (Auto) 0.2 % Immature Granulocyte # (Auto) 0.03 K/uL Prothrombin Time 10.7 SECONDS Prothromb Time International Ratio 1.0 Activated Partial Thromboplast Time 26.2 SECONDS Partial Thromboplastin Ratio 1.0 Sodium Level 140 mmol/L 139 mmol/L Potassium Level 4.1 mmol/L 3.8 mmol/L Chloride Level 108 mmol/L 109 mmol/L Carbon Dioxide Level 25 mmol/L 23 mmol/L Anion Gap 7.0 mmol/L 7.0 mmol/L Blood Urea Nitrogen 40 mg/dl 26 mg/dl Creatinine 0.90 mg/dl 0.68 mg/dl Estimated GFR () 71.0 97.1 Estimated GFR (Non- 61.2 83.8 BUN/Creatinine Ratio 44.3 38.1 Random Glucose 120 mg/dl 103 mg/dl Calcium Level 8.9 mg/dl 8.7 mg/dl Phosphorus Level 2.7 mg/dl Magnesium Level 1.8 mg/dl Total Bilirubin 0.5 mg/dl Direct Bilirubin 0.2 mg/dl Aspartate Amino Transf (AST/SGOT) 25 U/L Alanine Aminotransferase (ALT/SGPT) 23 U/L Alkaline Phosphatase 111 U/L Troponin I 0.015 ng/ml Total Protein 7.6 gm/dl Albumin 3.8 gm/dl Urine Color YELLOW Urine Appearance CLEAR Urine pH 6.0 Urine Specific [place] 1.020 Urine Protein TRACE Urine Glucose (UA) NEG Urine Ketones TRACE Urine Occult Blood NEG Urine Nitrite NEG Urine Bilirubin NEG Urine Urobilinogen NEG Urine Leukocyte Esterase NEG Urine WBC (Auto) 1-5 /hpf Urine RBC (Auto) 0-4 /hpf Urine Hyaline Casts (Auto) 1-5 /lpf Urine Epithelial Cells (Auto) 10-20 /lpf Urine Bacteria (Auto) NEG Est Creatinine Clear Calc Drug Dose 64.3 ml/min (Melly Simons ., SANDIPC) Assessment and Plan 76 y/o female with a history of progressive dementia with behavioral disturbance , HTN, and HLD who presents with functional decline at home and failure to thrive. Progressive dementia and functional decline--patient's can no longer take care of her by himself at home, but strongly wishes for her to remain home , favors home hospice over SNF placement -Admit to med/surg -Pt recently had extensive syncope work up earlier in the month which was negative -Head CT this admission no acute findings -CXR no acute disease -Pt tachycardic and with leukocytosis on admission, but this has since resolved. WBC down to 10/20 on 01/09 -Urine culture negative -Will check B1, RPR, Lyme, and B12 to complete work up tomorrow morning, and then avoid further lab draws -Reviewed outpatient records. Pt has been following up with neurology [id number] for the last few years and it seems she has just been slowly declining for quite some time -Palliative care consulted, appreciate recs -PT/OT evaluate and treat -Continue Aricept 5 mg PO qd, Namenda 14 mg PO qd, and Zoloft 50 mg PO qd Dehydration, elevated BUN--improving -D/C IVF. Pt had been receiving NSS but pulled IV out -BUN improved to 26 on 01/09 from 40, does not need further IV hydration unless unable to eat with assistance HTN--stable -Continue amlodipine 10 mg PO qd and lisinopril 20 mg PO qd HLD -Zocor D/c'd DVT prophylaxis -Heparin 5000 units SC q12h Code Status -Level I, FULL RESUSCITATION STATUS -Code status will need to be addressed if transitioning to hospice which is 's wish, however daughter wants to explore SNF options too (Melly Simons, KALYAN) Reviewed: Pt Seen/Exam by Me (Natalie Duran MD) History Physician Corporate Executive Supervision Note: I interviewed and examined the patient. Discussed with BROOKLYNN Simons and agree with findings and plan as documented in the note. Any exceptions or clarifications are listed here: Pt very angry, snapping at me, won't answer questions, tells me I'm not allowed to examine her and then throws the covers off and starts to try to get out of bed; says "I'm out of here!" Vitals reviewed Hostile, confused No respiratory distress Skin no rashes Ext normal inspection 76 yo female with declining progressively worsening dementia, weakness. Check for reversible causes as above that haven't already been looked at in the past. Hospice consultation Daughter prefers SNF, wants home Hospice The family would like to have a meeting on thursday 01/11 at 130 pm with attending , hospice nurse and case management to discuss options. Documented By: Natalie Duran (Natalie Duran MD)
[2017-01-09 15:08] VITALS: BP 105/65; PULSE 85; TEMP 36.7; O2SAT 96
[2017-01-09] MEDS: QUETIAPINE FUMARATE 25 MG TAB PO SCH (22:24)
[2017-01-10 07:32] VITALS: BP 134/74; PULSE 64; TEMP 36.8; O2SAT 96
[2017-01-10 08:15] LABS: BUN/CREATININE RATIO 42.6 (10-20); CALCIUM 8.3 mg/dl (8.5-10.1); CREATININE 0.65 mg/dl (0.60-1.20); POTASSIUM 3.6 mmol/L (3.5-5.1)
--- NOTE | 2017-01-10 08:50 | Clinical Documentation Query ---
CLINICAL DOCUMENTATION QUERY 76 yo female brought in by her due to his inability to care for her at home. She has been not eating and drinking very well and has become so weak that she cannot stand. In your clinical opinion is this patient being managed for: ( ) Functional quadriplegia in a setting of severe dementia treated with eventual fdc placement (x ) Other explanation of clinical findings (Please Explain) - End stage dementia ( ) Unable to determine (Please Define) ( ) Need to Discuss ( ) Not Agree The medical record reflects the following clinical findings, treatment, and risk factors. Clinical Indicators: Need of assistance of 2, poor activity tolerence, dependent of all ADL's including feedings. Treatment: Full nursing assistance with all ADL's, Social service consult for fdc placement. Risk Factors: Age, progressive dementia, poor nutritional intake Functional Quadriplegia is the lack of ability to use one's limbs or to ambulate due to extreme debility that is not associated with a neurological condition or injury, such as quadriplegia caused by a fracture of C3. Functional quadriplegia is often associated with dementia, such as Alzheimer's disease in which the patient loses the ability to feed, bath, and toilet themselves. Please clarify and document your clinical opinion in the progress notes and discharge summary. Terms such as "probable", "suspected", "likely", "questionable", "possible", or "still to be ruled out" are acceptable. IF IN AGREEMENT, YOU MUST DOCUMENT ABOVE DIAGNOSTIC STATEMENT IN DAILY PROGRESS NOTES AND DISCHARGE SUMMARY. This document is not part of the patient's record. Thank You, Jannette Meek RN [phone]
[2017-01-10] MEDS: AMLODIPINE BESYLATE 5 MG TAB PO SCH (08:51)
[2017-01-10 08:52] LABS: LYME DISEASE AB IGG NEG (NEG); LYME DISEASE AB IGM NEG (NEG)
[2017-01-10] MEDS: SERTRALINE HCL 50 MG TAB PO SCH (08:52)
[2017-01-10] MEDS: DONEPEZIL HCL 5 MG TAB PO SCH (08:52)
[2017-01-10] MEDS: LISINOPRIL 20 MG TAB PO SCH (08:52)
[2017-01-10] MEDS: HEPARIN SOD 5000 UNIT/0.5 ML CARP SQ SCH ×2 (08:57→20:23)
--- NOTE | 2017-01-10 09:14 | Hospitalist Progress Note ---
Hospitalist Progress Note Date of Service Jan 10, 2017. (Alisa Azevedo PA-C) Subjective Pt evaluation today including: conversation w/ patient, physical exam, chart review, lab review, review of studies Pain: None PO Intake: Good Voiding: no voiding problems The patient was seen and examined this afternoon. She is awake, lying in bed. She feels well, has no complaints. She ate breakfast and slept well. Constitutional: No fever, No chills, No sweats Respiratory: No cough, No shortness of breath Cardiovascular: No chest pain, No palpitations Abdomen: No pain, No nausea, No vomiting Musculoskeletal: No joint pain, No muscle pain Skin: No rash, No itch (Alisa Azevedo PA-C) Objective Vital Signs Date Time Temp Pulse Resp B/P (MAP) Pulse Ox O2 Delivery O2 Flow Rate FiO2 01/10/17 07:32 36.8 64 20 134/74 (94) 96 01/10/17 00:00 Room Air 01/09/17 20:00 Room Air 01/09/17 15:49 Room Air 01/09/17 15:08 36.7 85 20 105/65 (78) 96 (Alisa Azevedo PA-C) Physical Exam General Appearance: WD/WN, no apparent distress, + pertinent finding ( pleasantly demented elderly female) Eyes: PERRL, EOMI ENT: hearing grossly normal, pharynx normal Neck: supple, no JVD Respiratory/Chest: lungs clear, no respiratory distress, no accessory muscle use Cardiovascular: regular rate, rhythm, no murmur Abdomen: normal bowel sounds, non tender, soft Extremities: non-tender, no pedal edema, no calf tenderness Neurologic/Psychiatric: alert, + disoriented Skin: normal color, warm/dry (Alisa Azevedo PA-C) Laboratory Results Last 24 Hours Test 01/10/17 07:09 Sodium Level 142 mmol/L Potassium Level 3.6 mmol/L Chloride Level 109 mmol/L Carbon Dioxide Level 24 mmol/L Anion Gap 9.0 mmol/L Blood Urea Nitrogen 28 mg/dl Creatinine 0.65 mg/dl Est Creatinine Clear Calc Drug Dose 67.2 ml/min Estimated GFR () 98.6 Estimated GFR (Non- 85.0 BUN/Creatinine Ratio 42.6 Random Glucose 89 mg/dl Calcium Level 8.3 mg/dl Vitamin B12 Level 378 pg/mL Lyme Disease IgG Antibody NEG Lyme Disease IgM Antibody NEG (Alisa Azevedo, SANDIPC) Assessment and Plan 76 y/o female with a history of progressive dementia with behavioral disturbance , HTN, and HLD who presents with functional decline at home and failure to thrive. Progressive dementia and functional decline--patient's can no longer take care of her by himself at home, but strongly wishes for her to remain home , favors home hospice over SNF placement -Pt recently had extensive syncope work up earlier in the month which was negative -Head CT this admission no acute findings -CXR no acute disease -Pt tachycardic and with leukocytosis on admission, but this has since resolved. WBC down to 10/20 on 01/09 -Urine culture negative -Will check B1, RPR, Lyme, and B12 to complete work up tomorrow morning, and then avoid further lab draws -Reviewed outpatient records. Pt has been following up with neurology [id number] for the last few years and it seems she has just been slowly declining for quite some time -Palliative care consulted, appreciate recs -PT/OT evaluate and treat -Continue Aricept 5 mg PO qd, Namenda 14 mg PO qd, and Zoloft 50 mg PO qd Dehydration, elevated BUN--improving -D/C IVF. Pt had been receiving NSS but pulled IV out -BUN improved to 26 on 01/09 from 40, does not need further IV hydration unless unable to eat with assistance HTN--stable -Continue amlodipine 10 mg PO qd and lisinopril 20 mg PO qd HLD -Zocor D/c'd DVT prophylaxis -Heparin 5000 units SC q12h Code Status: FULL CODE -Code status will need to be addressed if transitioning to hospice which is 's wish, however daughter wants to explore SNF options too (Alisa Azevedo, BROOKLYNN-C) I agree with PA assessment and plan and have seen and examined pt myself Resting comfortably in bed Oriented to name only No distress noted VSS Labs reviewed Family meeting scheduled for 01/11 Will likely need SNF placement as unable to take care of her (lA Rojas D.O.)
--- NOTE | 2017-01-10 11:39 | Palliative Care Consultation ---
Consultation Date of Consultation: Jan 10, 2017. Requesting Physician: Dr. Fierro Attending Physician: Dr. Rojas Reason for Consultation: Goals of care History of Present Illness This 76 year old female patient presented to the ED two days ago with c/o weakness, bed sores. History obtained from record and patient's daughter as patient is confused/disoriented with advanced dementia. She lives at home with her who is her primary caregiver, also has private duty care for part of the day while is at dialysis. Apparently is has become increasingly difficult for the to manage her care at home. Patient not eating or drinking unless prompted, not ambulating much. Has had some falls at home, discharged from [facility] 10 days prior to arrival when she was here for syncopal episode. Upon arrival, elevated BUN and dry mucous membranes indicative of dehydration, but really nothing further discovered on work-up. CXR normal, CT head negative for anything acute. There has been talk of possible hospice care, possible placement. Palliative care consulted to assist with establishing goals of care. I met with the patient in room 256-2. She is awake and alert, but completely disoriented. Unable to participate in meaningful conversation, but she did deny any pain or discomfort. I spoke to patient's daughter, Jessi Green, who is listed as "person to notify." Jessi confirmed that the goal will likely be for hospice care, but half the family would like patient placed in SNF, half would like home hospice. She is requesting family meeting tomorrow at 1:30pm. Past Medical/Surgical History Medical History: Dementia Htn Social History Smoking Status: Former Smoker History of Alcohol Use: No Drug Use: none Marital Status: Housing Status: lives with family Occupation Status: unemployed Review of Systems unable to obtain ROS due to patient's cognitive impairment Allergies Coded Allergies: No Known Allergies (Verified , 01/08/17) Medications Current Inpatient Medications Medications (Trade) Dose Ordered Sig/Srini Route Start Time Stop Time Status Last Admin Dose Admin Acetaminophen (Tylenol Tab) 650 mg Q4H PRN PO 01/08/17 16:30 02/07/17 16:29 Polyethylene (Miralax Powder Packet) 17 gm DAILY PRN PO 01/08/17 16:30 02/07/17 16:29 Ondansetron HCl (Zofran Inj) 4 mg Q6H PRN IV 01/08/17 16:30 02/07/17 16:29 Heparin Sodium (Porcine) (Heparin Sq 5000 Unit/0.5ml) 5,000 unit Q12 SQ 01/08/17 21:00 02/07/17 20:59 01/10/17 08:57 5,000 UNIT Donepezil HCl (Aricept Tab) 5 mg DAILY PO 01/09/17 09:00 02/08/17 08:59 01/10/17 08:52 5 MG Lisinopril (Zestril Tab) 20 mg QAM PO 01/09/17 09:00 02/08/17 08:59 01/10/17 08:52 20 MG Sertraline HCl (Zoloft Tab) 50 mg DAILY PO 01/09/17 09:00 02/08/17 08:59 01/10/17 08:52 50 MG Amlodipine Besylate (Norvasc Tab) 10 mg QAM PO 01/09/17 09:00 02/08/17 08:59 01/10/17 08:51 10 MG Miscellaneous Information (Order Awaiting Action) 1 ea QS N/A 01/08/17 19:00 02/07/17 18:59 Lorazepam (Ativan Inj) 0.5 mg Q4H PRN IV 01/08/17 16:30 02/07/17 16:29 Lorazepam (Ativan Inj) 1 mg Q4H PRN IV 01/08/17 16:30 02/07/17 16:29 Quetiapine Fumarate (seroQUEL TAB) 25 mg HS PO 01/08/17 21:00 02/07/17 20:59 Haloperidol Lactate (Haldol Inj) 5 mg Q8 PRN IM 01/08/17 16:30 02/07/17 16:29 Physical Exam Date Time Temp Pulse Resp B/P (MAP) Pulse Ox O2 Delivery O2 Flow Rate FiO2 01/10/17 08:45 Room Air 01/10/17 07:32 36.8 64 20 134/74 (94) 96 01/10/17 00:00 Room Air 01/09/17 20:00 Room Air 01/09/17 15:49 Room Air 01/09/17 15:08 36.7 85 20 105/65 (78) 96 General Appearance: no apparent distress ENT: hearing grossly normal Neck: supple, no JVD Respiratory: lungs clear, no respiratory distress, no accessory muscle use Cardiovascular: regular rate, rhythm, no edema, + normal peripheral pulses Abdomen: normal bowel sounds, non tender, soft Neurologic/Psychiatric: alert, normal mood/affect, + disoriented Skin: normal color Laboratory Results Last 24 Hours Test 01/10/17 07:09 Sodium Level 142 mmol/L Potassium Level 3.6 mmol/L Chloride Level 109 mmol/L Carbon Dioxide Level 24 mmol/L Anion Gap 9.0 mmol/L Blood Urea Nitrogen 28 mg/dl Creatinine 0.65 mg/dl Est Creatinine Clear Calc Drug Dose 67.2 ml/min Estimated GFR () 98.6 Estimated GFR (Non- 85.0 BUN/Creatinine Ratio 42.6 Random Glucose 89 mg/dl Calcium Level 8.3 mg/dl Vitamin B12 Level 378 pg/mL Lyme Disease IgG Antibody NEG Lyme Disease IgM Antibody NEG Assessment & Plan Problem list: Dementia, severe Dehydration Weakness H/o falls Goals of care (Z51.5) Palliative care recs: -Goal of care to be decided tomorrow at family meeting at 1330. -Likely will be for hospice care: SNF vs. home. -Apparently has a living will, but we do not have a copy. I will do a POLST form if family agreeable. -Code status should be addressed. Thank you kindly for this consult. I will follow.
[2017-01-10] MEDS: QUETIAPINE FUMARATE 25 MG TAB PO SCH (20:21)
[2017-01-11 07:10] VITALS: BP 142/77; PULSE 66; TEMP 36.7; O2SAT 97
[2017-01-11 08:00] VITALS: O2SAT 97
[2017-01-11] MEDS: SERTRALINE HCL 50 MG TAB PO SCH (09:00)
[2017-01-11] MEDS: AMLODIPINE BESYLATE 5 MG TAB PO SCH (09:00)
[2017-01-11] MEDS: DONEPEZIL HCL 5 MG TAB PO SCH (09:00)
[2017-01-11] MEDS: HEPARIN SOD 5000 UNIT/0.5 ML CARP SQ SCH ×2 (09:00→20:18)
[2017-01-11] MEDS: LISINOPRIL 20 MG TAB PO SCH (09:00)
--- NOTE | 2017-01-11 14:42 | Hospitalist Progress Note ---
Hospitalist Progress Note Date of Service Jan 11, 2017. (Alias Azevedo PA-C) Subjective Pt evaluation today including: conversation w/ patient, conversation w/ family , physical exam, chart review, lab review, review of studies Pain: none PO Intake: good Voiding: no voiding problems The patient was seen and examined this morning. Her son and are present at bedside. The patient is eating lunch without difficulty. She denies any acute complaints, although was unable to answer what her husbands name is. A family meeting was scheduled today at 1:30 with all children/. The family meeting was held at 1:30pm with the patient's children Jessi(who acts as primary caregiver), another sister who's name I cannot recall, Shiv and Gerardo() along with palliative care- Ashley Garner, care management- Jaki French, and hospitalists- myself and Dr. Rojas. During the meeting it was discussed that the patient has end stage dementia and that it would be beneficial for around the clock care. The family is in agreement with looking into placement for Taya at a facility. Hospice was also discussed and the family seemed to want hospice care at this time, although a definite decision was not yet made. Care management - Jaki plans to make referrals to the [facility] and [facility]. The family plans to tour these locations within the next day or so. Gerardo is a dialysis patient and has this scheduled 3x per week, next session is tomorrow, so may not be able to tour facilities on these days. Additional Comments: ROS: 6 point ROS reviewed and otherwise negative. (Alisa Azevedo PA-C) Objective Vital Signs Date Time Temp Pulse Resp B/P (MAP) Pulse Ox O2 Delivery O2 Flow Rate FiO2 01/11/17 08:00 97 Room Air 01/11/17 07:10 36.7 66 20 142/77 (98) 97 Room Air 01/11/17 00:00 Room Air 01/10/17 15:15 Room Air (Alisa Azevedo PA-C) Physical Exam Notes: General Appearance: WD/WN, no apparent distress, + pertinent finding ( pleasantly demented elderly female, sitting up eating lunch) Eyes: PERRL, EOMI ENT: hearing grossly normal, pharynx normal Neck: supple, no JVD Respiratory/Chest: lungs clear, no respiratory distress, no accessory muscle use Cardiovascular: regular rate, rhythm, no murmur Abdomen: normal bowel sounds, non tender, soft Extremities: non-tender, no pedal edema, no calf tenderness Neurologic/Psychiatric: alert, + disoriented Skin: normal color, warm/dry (Alisa Azevedo, KALYAN) Assessment and Plan 76 y/o female with a history of progressive dementia with behavioral disturbance , HTN, and HLD who presents with functional decline at home and failure to thrive. Progressive dementia and functional decline--patient's can no longer take care of her by himself at home, but strongly wishes for her to remain home , favors home hospice over SNF placement - Family meeting held today with the patient's children Jessi(who acts as primary caregiver), another sister who's name I cannot recall, Shiv and Gerardo( ) along with palliative care- Ashley Garner, care management- Jaki French, and hospitalists- myself and Dr. Rojas. During the meeting it was discussed that the patient has end stage dementia and that it would be beneficial for around the clock care. The family is in agreement with looking into placement for Taya at a facility. Hospice was also discussed and the family seemed to want hospice care at this time, although a definite decision was not yet made. Care management - Jaki plans to make referrals to the [facility] , [facility], [facility] and [facility]. The family plans to tour these locations within the next day or so. - Appreciate palliative care involvement and CM involvement -Pt recently had extensive syncope work up earlier in the month which was negative -Head CT this admission no acute findings, CXR no acute disease -Pt tachycardic and with leukocytosis on admission, but this has since resolved. WBC down to 10/20 on 01/09 -Urine culture negative -Will check B1, RPR, Lyme, and B12 to complete work up tomorrow morning, and then avoid further lab draws -Reviewed outpatient records. Pt has been following up with neurology [id number] for the last few years and it seems she has just been slowly declining for quite some time -PT/OT evaluate and treat -Continue Aricept 5 mg PO qd, Namenda 14 mg PO qd, and Zoloft 50 mg PO qd Dehydration, elevated BUN--improving -D/C IVF. Pt had been receiving NSS but pulled IV out -BUN improved to 26 on 01/09 from 40, does not need further IV hydration unless unable to eat with assistance HTN--stable -Continue amlodipine 10 mg PO qd and lisinopril 20 mg PO qd HLD -Zocor D/c'd DVT prophylaxis -Heparin 5000 units SC q12h Code Status: FULL CODE -Code status will need to be addressed if transitioning to hospice which is 's wish, however daughter wants to explore SNF options too (Alisa Azevedo, PA-C) I agree with PA assessment and plan and have seen and examined pt myself Pt resting in bed comfortably Denies any complaints Alert and oriented only to name Agitation noted towards nurses Family meeting, agree with hospice, stable for discharge once facility bed available (Al Rojas, D.O.)
--- NOTE | 2017-01-11 15:09 | Palliative Care Progress Note ---
Palliative Care Progress Note Date of Service Jan 11, 2017. Subjective Pt evaluation today including: conversation w/ family, conversation w/ vmware consultant Family meeting held with myself, Yaw Moore PA-C, Mahsa French- food and beverage outlets manager, patient's Gerardo, son Stew, and daughters Jessi and Nakia. Dr. Rojas discussed patient's medical conditions and mostly about her end-stage dementia. The , Gerardo, was quite emotional during this meeting and frequently raised his voice and cut me off from speaking several times. Eventually, with the help of the patient's children, the decision was made that patient would be placed in SNF with hospice care. I was only able to say a few things about hospice and the service they provide, family was agreeable. manager utilization to make referrals to several facilities. Would still like to complete a POLST form prior to discharge if family is agreeable.
[2017-01-11 15:15] VITALS: BP 101/69; PULSE 68; TEMP 36.8; O2SAT 93
[2017-01-11] MEDS: QUETIAPINE FUMARATE 25 MG TAB PO SCH (20:13)
[2017-01-11 21:25] LABS: RAPID PLASMA REAGIN NONREACTIVE (NONREACT)
[2017-01-12 08:00] VITALS: O2SAT 97
[2017-01-12 08:04] VITALS: BP 140/75; PULSE 68; TEMP 36.3; O2SAT 100
[2017-01-12] MEDS: AMLODIPINE BESYLATE 5 MG TAB PO SCH (09:00)
[2017-01-12] MEDS: HEPARIN SOD 5000 UNIT/0.5 ML CARP SQ SCH ×2 (09:00→20:14)
[2017-01-12] MEDS: SERTRALINE HCL 50 MG TAB PO SCH (09:00)
[2017-01-12] MEDS: LISINOPRIL 20 MG TAB PO SCH (09:00)
[2017-01-12] MEDS: DONEPEZIL HCL 5 MG TAB PO SCH (09:00)
--- NOTE | 2017-01-12 11:00 | Hospitalist Progress Note ---
Hospitalist Progress Note Date of Service Jan 12, 2017. Subjective Pt evaluation today including: conversation w/ patient, physical exam, chart review, lab review, review of studies Pain: None PO Intake: Good Voiding: incontinence The patient was seen and examined this morning. Pt is pleasantly confused this morning, reading signs on the wall in front of her, pointing out the window, and laughs occasionally. She has breakfast sitting in front of her. There is a puddle of urine under her chair and her gown is soaked. ROS: no pain, headache, trouble with vision, chest pain, shortness of breath, abdominal pain, n/v/d/c, lightheadedness or dizziness. Objective Vital Signs Date Time Temp Pulse Resp B/P (MAP) Pulse Ox O2 Delivery O2 Flow Rate FiO2 01/12/17 08:04 36.3 68 20 140/75 (96) 100 Room Air 01/12/17 00:00 Room Air 01/11/17 15:40 Room Air 01/11/17 15:15 36.8 68 20 101/69 (80) 93 Room Air Physical Exam Notes: General Appearance: WD/WN, no apparent distress, + pertinent finding ( pleasantly demented elderly female) Eyes: PERRL, EOMI ENT: hearing grossly normal, pharynx normal Neck: no JVD Respiratory/Chest: lungs clear, no respiratory distress, no accessory muscle use, on room air Cardiovascular: regular rate, rhythm, no murmur Abdomen: normal bowel sounds, non tender, soft Extremities: non-tender, no pedal edema, no calf tenderness Neurologic/Psychiatric: alert, + disoriented, + pleasantly confused, reading signs on the hendricks, thought process is not goal oriented Skin: normal color, warm/dry Assessment and Plan 76 y/o female with a history of progressive dementia with behavioral disturbance , HTN, and HLD who presents with functional decline at home and failure to thrive. Progressive dementia and functional decline--patient's can no longer take care of her by himself at home, but strongly wishes for her to remain home , favors home hospice over SNF placement - Awaiting placement since family meeting yesterday. - Appreciate palliative care involvement and CM involvement -Pt recently had extensive syncope work up earlier in the month which was negative -Head CT this admission no acute findings, CXR no acute disease -Pt tachycardic and with leukocytosis on admission, but this has since resolved. WBC down to 10/20 on 01/09 -Urine culture negative -Will check B1, RPR, Lyme, and B12 to complete work up tomorrow morning, and then avoid further lab draws -Reviewed outpatient records. Pt has been following up with neurology [id number] for the last few years and it seems she has just been slowly declining for quite some time -PT/OT evaluate and treat -Continue Aricept 5 mg PO qd, Namenda 14 mg PO qd, and Zoloft 50 mg PO qd Dehydration, elevated BUN--improving -D/C IVF. Pt had been receiving NSS but pulled IV out -BUN improved to 26 on 01/09 from 40, does not need further IV hydration unless unable to eat with assistance HTN--stable -Continue amlodipine 10 mg PO qd and lisinopril 20 mg PO qd HLD -Zocor D/c'd DVT prophylaxis -Heparin 5000 units SC q12h Code Status: FULL CODE -Code status will need to be addressed if transitioning to hospice which is 's wish, however daughter wants to explore SNF options too, CM assisting with placement.
[2017-01-12 15:14] VITALS: BP 104/68; PULSE 69; TEMP 36.5; O2SAT 94
[2017-01-12] MEDS: QUETIAPINE FUMARATE 25 MG TAB PO SCH (20:12)
[2017-01-13 00:25] VITALS: BP 138/77; PULSE 74; TEMP 36.7; O2SAT 97
[2017-01-13 09:00] VITALS: O2SAT 97
[2017-01-13] MEDS ORDERED: SRQ25 PO (13:02)
--- NOTE | 2017-01-13 13:19 | Discharge Instructions ---
Discharge Instructions Date of Service Jan 13, 2017. Admission Reason for Admission: Declining Functional Status Discharge Discharge Diagnosis / Problem: Failure to thrive, End stage Dementia Discharge Goals Goal(s): Decrease discomfort, Improve function, Increase independence, Improve disease control Activity Recommendations Activity Limitations: resume your previous activity Lifting Limitations: no more than 10 pounds, gradually increase as tolerated Exercise/Sports Limitations: as tolerated May Resume Sexual Activity: when tolerated Shower/Bathe: no limitations Driving or Machine Use: DO NOT DRIVE . Instructions / Follow-Up Instructions / Follow-Up You were admitted to [facility] with failure to thrive, dehydration and diagnosed with End Stage Dementia. - - During your stay here you were treated with intravenous fluids and other supportive care. Imaging studies which were completed include CT of the head, which was normal. Decision was made by family and medical personnel that you are best suited at this time to have extra help around the clock. Arrangements have been made for discharge to [facility]. If functional decline continues, you can discuss transitioning to hospice with the physician at [facility]. Medications: You have been started on a medication called seroquel to aid in good sleep and help manage behavior disturbances exhibited as part of end stage dementia. Follow up with the Primary Care Provider at [facility] within 24-48 hours upon arrival. Current Hospital Diet Patient's current hospital diet: Regular Diet Discharge Diet Recommended Diet: Regular Diet Pending Studies Studies pending at discharge: no Medical Emergencies . Who to Call and When: Medical Emergencies: If at any time you feel your situation is an emergency, please call 911 immediately. . Non-Emergent Contact Non-Emergency issues call your: Primary Care Provider Call Non-Emergent contact if: you have a fever, temperature is above 100.5, your pain is not controlled, you have any medication questions any other concerns regarding your health. Call 911 or go directly to the ER if you experience: chest pain, shortness of breath, abdominal pain, nausea, vomiting, diarrhea, lightheadedness or dizziness , or if you have any other concerns. . . "Provider Documentation" section prepared by Aaliyah Azevedo. . VTE Core Measure Inpt VTE Proph given/why not?: Keyshawn Giron, SCD's
--- NOTE | 2017-01-13 13:39 | Discharge Summary ---
Discharge Summary Date of Service Jan 13, 2017. (Alisa Azevedo PA-C) Discharge Summary Admission Date: Jan 08, 2017 at 16:22 Discharge Date: Jan 13, 2017 Discharge Disposition: long term facility Principal Diagnosis: Failure to thrive, End stage dementia Problems/Secondary Diagnoses: End stage dementia behavioral disturbance HTN HLD Immunizations: Have You Had Influenza Vaccine: Yes Influenza Vaccine Date: Mar 06, 2013 History of Tetanus Vaccine?: Unknown Tetanus Immunization Date: Jul 23, 2004 History of Pneumococcal: No Pneumococcal Date: Jul 31, 2007 History of Hepatitis B Vaccine: No Procedures: CT OF THE HEAD WITHOUT CONTRAST CLINICAL HISTORY: Altered mental status. COMPARISON STUDY: Head CT December 27, 2016. CT DOSE: 537.48 mGy.cm TECHNIQUE: Helical axial images of the head were obtained without IV contrast. Automated exposure control was utilized for the study. A dose lowering technique was utilized adhering to the principles of ALARA. FINDINGS: No acute intracranial hemorrhage, midline shift or mass effect is present. Ventricular dilatation is unchanged and likely due to central atrophy. The basilar cisterns are patent. There are no extra-axial collections. White matter hypodensity suggests small vessel disease. There are no findings to suggest acute dural sinus thrombosis or acute territorial infarct. Bilateral parietal calvarial meño holes are present. Visualized portions of the sinuses and mastoid air cells are clear. There is no calvarial fracture. IMPRESSION: No acute intracranial findings. Electronically signed by: Rodrigue Cowan M.D. 01/08/2017 2:15 PM Dictated Date/Time: 01/08/2017 2:10 PM The status of this report is Signed. CHEST ONE VIEW PORTABLE CLINICAL HISTORY: Altered mental status. COMPARISON STUDY: Chest radiograph December 27, 2016. FINDINGS: The patient is rotated. Moderate cardiomegaly is unchanged. Pulmonary vascularity is normal. No consolidation is identified to suggest pneumonia. There is no pneumothorax or pleural effusion. There is slight elevation of the right hemidiaphragm. IMPRESSION: No acute cardiopulmonary findings. Electronically signed by: Rodrigue Cowan M.D. 01/08/2017 2:33 PM Dictated Date/Time: 01/08/2017 2:32 PM The status of this report is Signed. (Alisa Azevedo PA-C) Medication Reconciliation New Medications: Quetiapine Fumarate (Quetiapine Fumarate) 25 Mg Tab 25 MG PO HS for 30 Days, #30 TAB Continued Medications: Amlodipine Besylate (Amlodipine Besylate) 10 Mg Tab 10 MG PO QAM for 30 Days, #30 TAB Donepezil HCl (Aricept) 5 Mg Tab 5 MG PO DAILY Lisinopril (Lisinopril) 20 Mg Tab 20 MG PO QAM for 30 Days, #30 TAB Memantine Hcl (Namenda Xr) 14 Mg Cap 14 MG PO QAM Sertraline (Zoloft) 50 Mg Tab 50 MG PO DAILY Simvastatin (Zocor) 40 Mg Tab 40 MG PO QPM Discharge Exam The patient was seen and examined this morning. Pt is again pleasantly confused , reading signs on the wall, tangential thought process. She feels well and doesn't have any complaints today. ROS: no pain, headache, trouble with vision, chest pain, shortness of breath, abdominal pain, n/v/d/c, lightheadedness or dizziness. PE: General Appearance: WD/WN, no apparent distress, + pertinent finding ( pleasantly demented elderly female) Eyes: PERRL, EOMI ENT: hearing grossly normal, pharynx normal Neck: no JVD Respiratory/Chest: lungs clear, no respiratory distress, no accessory muscle use, on room air Cardiovascular: regular rate, rhythm, no murmur Abdomen: normal bowel sounds, non tender, soft Extremities: non-tender, no pedal edema, no calf tenderness Neurologic/Psychiatric: alert, + disoriented, + pleasantly confused, reading signs on the hendricks, thought process is not goal oriented Skin: normal color, warm/dry (Alisa Azevedo, PA-C) Hospital Course H&P per Gerardo Fierro MD. History of Present Illness This patient brought in by her due to his inability to care for her at home. She has been not eating and drinking very well and has become so weak that she cannot stand. She had a few falls. She recently was discharged from our facility 10 days ago after syncopal episode. At that time she had some memory impairment was agitated. Her is sitting at the bedside and he understands that she is reaching a point where she is not able to sustain herself at home he is reluctant to place her in a half-way as he said that he has gone through this with his mother. He does have some home give caregiver insurance and wishes to have her at home at all costs. I asked him to consider the goals of care at the goals of care to keep her at home and keep her happy perhaps hospice services would be more appropriate than continuously readmitting her to the hospital. He entertained the slot will discuss this with his family and we will engage with hospice care on Tuesday. With her ER screening examination the only thing that has come about his she clinically appears dehydrated with dry mucous membranes dry teeth tenting of her skin and elevation of her BUN Physical Exam Vital Signs Date Time Temp Pulse Resp B/P (MAP) Pulse Ox O2 Delivery O2 Flow Rate FiO2 01/08/17 15:26 80 20 160/80 96 01/08/17 13:30 36.7 81 24 141/65 95 Room Air 01/08/17 13:29 82 General Appearance: WD/WN, + mild distress Head: normocephalic, atraumatic Eyes: PERRL, EOMI ENT: hearing grossly normal, + pertinent finding (very dry mucous members and teeth) Neck: supple, trachea midline Respiratory/Chest: chest non-tender, lungs clear, normal breath sounds Cardiovascular: regular rate, rhythm, + systolic murmur (slight systolic murmur right upper sternal border) Abdomen/GI: normal bowel sounds, non tender, soft Back: normal inspection, no CVA tenderness Extremities/Musculoskelatal: no pedal edema, normal range of motion Neurologic/Psych: alert, + disoriented Skin: normal color, warm/dry Hospital Course: 76 y/o female with a history of progressive dementia with behavioral disturbance , HTN, and HLD who presents with functional decline at home and failure to thrive. Progressive dementia/ End stage demential and functional decline--patient's can no longer take care of her by himself at home, but strongly wishes for her to remain home, favors home hospice over SNF placement - Appreciate palliative care involvement and CM involvement -Pt recently had extensive syncope work up earlier in the month which was negative -Head CT this admission no acute findings, CXR no acute disease -Pt tachycardic and with leukocytosis on admission, but this has since resolved. WBC down to 10/20 on 01/09 -Urine culture negative -Will check B1 which is low, will order thiamine replacement, B12 normal - Lyme is negative -Reviewed outpatient records. Pt has been following up with neurology [id number] for the last few years and it seems she has just been slowly declining for quite some time -PT/OT evaluate and treat -Continue Aricept 5 mg PO qd, Namenda 14 mg PO qd, and Zoloft 50 mg PO qd Dehydration, elevated BUN--improving -D/C IVF. Pt had been receiving NSS but pulled IV out -BUN improved to 26 on 01/09 from 40, does not need further IV hydration unless unable to eat with assistance HTN--stable -Continue amlodipine 10 mg PO qd and lisinopril 20 mg PO qd HLD -Zocor D/c'd DVT prophylaxis -Heparin 5000 units SC q12h Code Status: FULL CODE -Code status will need to be addressed if transitioning to hospice which is 's wish, however daughter wants to explore SNF options too, CM assisting with placement. Total Time Spent: Greater than 30 minutes This includes examination of the patient, discharge planning, medication reconciliation, and communication with other providers. (Alisa Azevedo, KALYAN) I agree with PA assessment and plan and have seen and examined pt myself Resting comfortably in bed VSS Labs reviewed End stage dementia No agitation on interview DC to [facility] when bed available informed (Al Rojas, D.OReba) Discharge Instructions Please refer to the electronic Patient Visit Report (Discharge Instructions) for additional information. (Alisa Azevedo, KALYAN) Follow-Up Follow up with the physician at [facility] within 24-48 hours of arrival. (Alisa Azevedo, KALYAN) Additional Copies To Chet Espinal M.D.
[2017-01-13] MEDS ORDERED: THIA100T11 PO (13:40)
[2017-01-13 14:02] VITALS: BP 138/77; PULSE 74; TEMP 36.7; O2SAT 97
--- NOTE | 2017-01-14 07:45 | EDITING REQUIRED CODING QUERY ---
CODING QUERY To promote full compliance with coding requirements relating to patient care, provider participation is requested in all cases of dyer and washer uncertainty. Please assist us with the question(s) below: Coding Question(s): Dr. Rojas, Acute kidney injury with elevated BUN is documented briefly in the H&P, but not mentioned elsewhere in the patient's chart. Please clarify if: ( X ) MARLENE was present and treated during this admission ( ) Not present or treated during this admission ( ) Other, please explain Physician's Response(s): Thank you for your time, TAM Jason, POEM WRITER
--- NOTE | 2017-01-14 07:48 | EDITING REQUIRED CODING QUERY ---
CODING QUERY To promote full compliance with coding requirements relating to patient care, provider participation is requested in all cases of shoe dresser uncertainty. Please assist us with the question(s) below: Coding Question(s): Dr. Rojas, There is mention of bed sores in the patient's chart. Please provide the location and stage of severity of these bed sores: Physician's Response(s): Thank you for your time, TAM Jason, LIQUOR STORE MANAGER
== END 2017-01-13 14:20 | disposition hospice, inpatient (51) | DRG 683 ==
LOC: EDBD 13:10 → C.EDC 13:11 → C.MS2W 16:22 → ENRESERV 17:12 → UNDODISIN 01-11 12:09
PROVIDERS: ADMIT Internal Medicine; ATTEND Hospitalist
DX: N17.9 Acute kidney failure, unspecified (principal); F03.91 Unspecified dementia, unspecified severity, with behavioral disturbance; E51.9 Thiamine deficiency, unspecified; R62.7 Adult failure to thrive; E86.0 Dehydration; R53.1 Weakness; R00.0 Tachycardia, unspecified; D72.829 Elevated white blood cell count, unspecified; R53.81 Other malaise; I10 Essential (primary) hypertension; E78.5 Hyperlipidemia, unspecified; R32 Unspecified urinary incontinence; Z91.81 History of falling; Z87.891 Personal history of nicotine dependence; Z79.899 Other long term (current) drug therapy

== ENCOUNTER → 2017-04-13 | Outpatient (CLI) | payer OTHER, BC ==
[~2017-04-13] MED LIST changes: +SRQ25 PO
[2017-04-13 09:26] LABS: MEAN CELL VOLUME 83.5 fL (80-100); MEAN CORPUSCULAR HEMOGLOBIN 24.8 pg (25-34); MEAN CORPUSCULAR HGB CONC 29.7 g/dl (32-36); MEAN PLATELET VOLUME 9.4 fL (7.4-10.4); PLATELET COUNT 281 K/uL (130-400); RED BLOOD COUNT 4.07 M/uL (4.2-5.4); WHITE BLOOD COUNT 8.25 K/uL (4.8-10.8)
[2017-04-13 09:33] LABS: BLOOD UREA NITROGEN 32 mg/dl (7-18); BUN/CREATININE RATIO 36.7 (10-20); CALCIUM 8.4 mg/dl (8.5-10.1); CARBON DIOXIDE 24 mmol/L (21-32); CHLORIDE 111 mmol/L (98-107); CREATININE 0.88 mg/dl (0.60-1.20); GLUCOSE 86 mg/dl (70-99); POTASSIUM 3.9 mmol/L (3.5-5.1); SODIUM 143 mmol/L (136-145)
== END | disposition home or self-care (01) ==
LOC: C.LABFOXAC 08:52
PROVIDERS: ATTEND Internal Medicine
DX: R00.0 Tachycardia, unspecified (principal)

== ENCOUNTER → 2017-04-18 | Outpatient (CLI) | payer OTHER, BC ==
[2017-04-18 09:18] LABS: TOTAL IRON BINDING CAPACITY 249 mcg/dl (250-450)
== END | disposition home or self-care (01) ==
LOC: C.LABFOXAC 08:40
PROVIDERS: ATTEND Internal Medicine
DX: D50.9 Iron deficiency anemia, unspecified (principal)

== ENCOUNTER → 2017-08-12 | Outpatient (CLI) | payer OTHER, BC ==
[2017-08-12 15:04] LABS: ALBUMIN 3.8 gm/dl (3.4-5.0); ALT/SGPT 23 U/L (12-78); AST/SGOT 21 U/L (15-37); BLOOD UREA NITROGEN 37 mg/dl (7-18); CALCIUM 9.5 mg/dl (8.5-10.1); CARBON DIOXIDE 28 mmol/L (21-32); CREATININE 1.11 mg/dl (0.60-1.20); GLUCOSE 109 mg/dl (70-99); POTASSIUM 3.9 mmol/L (3.5-5.1); SODIUM 140 mmol/L (136-145)
[2017-08-12 15:07] LABS: ALKALINE PHOSPHATASE 164 U/L (45-117); TOTAL PROTEIN 7.9 gm/dl (6.4-8.2)
== END ==
LOC: C.LABFOXAC 14:45
PROVIDERS: ATTEND Nurse Practitioner Family
DX: R25.8 Other abnormal involuntary movements (principal)

== ENCOUNTER 2018-06-01 16:41 | Inpatient (IN) ==
[2018-06-01] MEDS ORDERED: fentaNYL citrate 100 MCG/2 ML VIAL IV PRN (16:50)
[2018-06-01] MEDS ORDERED: SODIUM CHLORIDE 0.9% 1000ML 500 ML IV ONE (16:50)
--- NOTE | 2018-06-01 17:05 | Emergency Department Note ---
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 Per EMS, the patient has not been able to ambulate and has been in bed rest for the past 8 days complaining of right hip pain. EMS also reports that the patient has a history of dementia. Home Medications Home Medications Medication Instructions Recorded Confirmed Type acetaminophen [Tylenol] 650 mg PO Q4 PRN MDD 3 GRAMS/24 06/01/18 06/01/18 History HOURS acetaminophen [Tylenol] 650 mg PO TID 06/01/18 06/01/18 History bisacodyl [Dulcolax (bisacodyl)] 10 mg TN DAILY PRN 06/01/18 06/01/18 History duloxetine [Cymbalta] 60 mg PO QAM 06/01/18 06/01/18 History lidocaine [Lidoderm] 1 patch TOPICAL HS 06/01/18 06/01/18 History magnesium hydroxide [Milk of 30 ml PO DAILY PRN 06/01/18 06/01/18 History Magnesia] memantine [Namenda XR] 14 mg PO QAM 06/01/18 06/01/18 History naproxen sodium [Aleve] 220 mg PO QAM 06/01/18 06/01/18 History polyethylene glycol 3350 [Miralax] 17 g PO QAM 06/01/18 06/01/18 History quetiapine [Seroquel] 12.5 mg PO QPM 06/01/18 06/01/18 History sodium phosphates [Fleet Enema] 118 ml TN DAILY PRN 06/01/18 06/01/18 History tramadol 50 mg PO Q4 PRN 06/01/18 06/01/18 History Allergies Allergy/AdvReac Type Severity Reaction Status Date / Time No Known Allergies Allergy Verified 06/01/18 17:16 Past Med/Surg History Family History Other Family history non-contributory Social History Current Living Situation: [facility] Current Living Situation Comment: [facility] Other Information That Helps Us Care for You: No Feels Safe at Home: Yes Smoking Status: Former smoker Tobacco Type: cigarettes Do You Dip or Chew Tobacco: No Smoking End Date: 1988 Second Hand Exposure: No Tobacco Cessation Education Requested by Patient: No Hx Alcohol Use: No Hx Substance Use: No Beliefs That Will Affect Care: None Preferred Language: Venezuelan Communication Ability: Impaired Band Presser Required: No Review of Systems Other (HPI and ROS are both limited secondary to altered mental status. ) Physical Exam Vital Signs Vital Signs - 24 hr 06/01/18 17:11 06/01/18 18:23 06/01/18 18:56 Temperature 36.2 C L Temperature Source Axillary Sepsis Recent Fever Within 48 Hours No Sepsis New/Unexplained Change in Mental Status No Sepsis Action Taken by Nursing No Action Required Pulse Rate 77 82 Pulse Rate [Finger] 77 73 Pulse Rhythm [Finger] Pulse Strength [Finger] Respiratory Rate 14 16 18 Respiratory Effort / Characteristics Respiratory Depth Respiratory Pattern Blood Pressure 142/88 H 157/84 H Blood Pressure [Right Arm] 142/88 H 159/76 H Blood Pressure Mean 106 Blood Pressure Mean [Right Arm] 106 103 Blood Pressure Position [Right Arm] Pulse Oximetry 95 97 96 Oxygen Delivery Method Room Air Room Air Room Air 06/01/18 20:00 06/01/18 22:54 Temperature 36.6 C 36.4 C L Temperature Source Oral Oral Sepsis Recent Fever Within 48 Hours Sepsis New/Unexplained Change in Mental Status Sepsis Action Taken by Nursing Pulse Rate Pulse Rate [Finger] 71 94 H Pulse Rhythm [Finger] Regular Pulse Strength [Finger] Normal Respiratory Rate 16 16 Respiratory Effort / Characteristics Non-Labored Spontaneous Normal for Patient Respiratory Depth Normal Respiratory Pattern Regular Blood Pressure Blood Pressure [Right Arm] 162/80 H 129/76 Blood Pressure Mean Blood Pressure Mean [Right Arm] 107 93 Blood Pressure Position [Right Arm] Lying Lying Pulse Oximetry 97 97 Oxygen Delivery Method Room Air Room Air GENERAL: Patient is awake and alert. She is somewhat anxious appearing and appears to be uncomfortable. EYES: The conjunctivae are clear. The pupils are round and reactive. EARS, NOSE, MOUTH AND THROAT: Mucous members are dry. NECK: The neck is nontender and supple. RESPIRATORY: Normal respiratory effort is noted there is no evidence of wheezing rhonchi or rales CARDIOVASCULAR: Regular rate and rhythm noted there no murmurs rubs or gallops normal S1 normal S2 GASTROINTESTINAL: The abdomen is soft. Bowel sounds are present in all quadrants. Abdomen is nontender BACK: No midline tenderness or or step-off noted range of motion in flexion extension as well as rotation no signs of muscle spasm noted MUSCULOSKELETAL/EXTREMITIES: Right lower extremity is externally rotated and mildly shortened. The patient has very significant pain with range of motion testing. Pulses are symmetric in both feet. SKIN: There is no obvious evidence of any rash. Trace pedal edema was noted bilaterally. NEUROLOGIC: Patient is awake alert and oriented to person place but not time or situation. Course 164: Past medical records reviewed. The patient was evaluated in room B6, and a complete history and physical examination were performed. 165: I spoke with the patient�s daughter and updated her. 1825: I reviewed the patient's case with Dr. Coronado - [facility] Hospitalist. He will evaluate the patient for further management. 1830: I updated the patient's daughter on the treatment plan. Administered Medications Quetiapine Fumarate (Seroquel) 12.5 mg PO QPM GRADY Stop: 07/01/18 20:59 Last Admin: 06/01/18 21:30 Dose: 12.5 mg Senna/Docusate Sodium (Senokot S) 2 tab PO HS GRADY Stop: 07/01/18 20:59 Last Admin: 06/01/18 21:30 Dose: 2 tab Discontinued Medications Sodium Chloride (Nss 1000ml) 500 mls @ 999 mls/hr IV .Q31M ONE Stop: 06/01/18 17:20 Last Infusion: 06/01/18 18:54 Dose: 0 mls/hr Admin: 06/01/18 18:22 Dose: 999 mls/hr Medical Decision Making Differential Diagnosis Differential diagnosis includes: major intracranial, cervical, spinal, thoracic , abdominal, pelvic and neurologic injury, fracture, contusion, sprain, strain, laceration, and abrasions. Medical Records Attestation: I reviewed the patient's medical records. Home Medications Current Medication List: was personally reviewed by me Laboratory Data Attestation: I reviewed the patient's lab results. Result diagrams: 06/01/18 17:16 06/01/18 17:15 Lab Results 06/01/18 06/01/1819 Range/Units 17:15 17:15 17:16 WBC 8.06 (4.8-10.8) K/uL RBC 4.60 (4.2-5.4) M/uL Hgb 12.3 (12.0-16.0) g/dL Hct 39.7 (37-47) % MCV 86.3 (80-100) fL MCH 26.7 (25-34) pg MCHC 31.0 L (32-36) g/dL RDW Std Deviation 44.6 (36.4-46.3) fL RDW Coeff of Kanika 14.2 (11.5-14.5) % Plt Count 281 (130-400) K/uL MPV 9.4 (7.4-10.4) fL Immature Gran % (Auto) 0.2 % Neut % (Auto) 64.6 % Lymph % (Auto) 23.4 % [place] % (Auto) 8.6 % Eos % (Auto) 2.6 % Baso % (Auto) 0.6 % Immature Gran # (Auto) 0.02 (0.00-0.02) K/uL Neut # (Auto) 5.20 (1.4-6.5) K/uL Lymph # (Auto) 1.89 (1.2-3.4) K/uL [place] # (Auto) 0.69 H (0.11-0.59) K/uL Eos # (Auto) 0.21 (0-0.5) K/uL Baso # (Auto) 0.05 (0-0.2) K/uL PT Cancelled INR Cancelled APTT Cancelled PTT Ratio Cancelled Sodium 145 (136-145) mmol/L Potassium 4.0 (3.5-5.1) mmol/L Chloride 111 H (98-107) mmol/L Carbon Dioxide 27 (21-32) mmol/L Anion Gap 7.0 (3-11) BUN 44 H (7-18) mg/dl Creatinine 0.94 (0.6-1.2) mg/dl Est Cr Clr Drug Dosing 43.0 ml/min Est GFR ( Amer) 66.4 Est GFR (Non-Af Amer) 57.3 BUN/Creatinine Ratio 47.0 H (10-20) Glucose 108 H (70-99) mg/dl Calcium 9.0 (8.5-10.1) mg/dl Total Bilirubin 0.3 (0.2-1) mg/dl Direct Bilirubin 0.1 (0-0.2) mg/dl AST 25 (15-37) U/L ALT 34 (12-78) U/L Alkaline Phosphatase 100 (45-117) U/L Total Protein 6.6 (6.4-8.2) gm/dl Albumin 3.2 L (3.4-5.0) gm/dl Blood Type Antibody Screen 06/01/18 06/01/18 06/01/18 Range/Units 17:16 18:14 18:14 WBC (4.8-10.8) K/uL RBC (4.2-5.4) M/uL Hgb (12.0-16.0) g/dL Hct (37-47) % MCV (80-100) fL MCH (25-34) pg MCHC (32-36) g/dL RDW Std Deviation (36.4-46.3) fL RDW Coeff of Kanika (11.5-14.5) % Plt Count (130-400) K/uL MPV (7.4-10.4) fL Immature Gran % (Auto) % Neut % (Auto) % Lymph % (Auto) % [place] % (Auto) % Eos % (Auto) % Baso % (Auto) % Immature Gran # (Auto) (0.00-0.02) K/uL Neut # (Auto) (1.4-6.5) K/uL Lymph # (Auto) (1.2-3.4) K/uL [place] # (Auto) (0.11-0.59) K/uL Eos # (Auto) (0-0.5) K/uL Baso # (Auto) (0-0.2) K/uL PT 10.4 INR 1.0 APTT 26.0 PTT Ratio 1.0 Sodium (136-145) mmol/L Potassium (3.5-5.1) mmol/L Chloride (98-107) mmol/L Carbon Dioxide (21-32) mmol/L Anion Gap (3-11) BUN (7-18) mg/dl Creatinine (0.6-1.2) mg/dl Est Cr Clr Drug Dosing ml/min Est GFR ( Amer) Est GFR (Non-Af Amer) BUN/Creatinine Ratio (10-20) Glucose (70-99) mg/dl Calcium (8.5-10.1) mg/dl Total Bilirubin (0.2-1) mg/dl Direct Bilirubin (0-0.2) mg/dl AST (15-37) U/L ALT (12-78) U/L Alkaline Phosphatase (45-117) U/L Total Protein (6.4-8.2) gm/dl Albumin (3.4-5.0) gm/dl Blood Type Cancelled A Positive Antibody Screen Cancelled NEGATIVE Imaging Data Radiologist's Impression: Radiology results as stated below per my review and the radiologist's interpretation: XR chest 1V portable CLINICAL HISTORY: Trauma. Pain. COMPARISON STUDY: 01/08/2017 FINDINGS: The heart is mildly enlarged. There is no pneumothorax. There is no focal pulmonary consolidation. There is mild chronic basilar interstitial thickening. There are no pleural effusions.[ There is a left upper lung zone calcified granuloma. IMPRESSION: No active disease in the chest. Electronically signed by: Mitch Corbin M.D. 06/01/2018 5:[address] head/brain wo con CLINICAL HISTORY: Head trauma. Altered mental status. COMPARISON STUDY: 01/08/2017 TECHNIQUE: Axial CT of the brain is performed from the vertex to the skull base. IV contrast was not administered for this examination. A dose lowering technique was utilized adhering to the principles of ALARA. CT DOSE: FINDINGS: No intra or extra-axial mass lesions are visualized. There is no CT evidence of acute cortical infarction. There is no evidence of midline shift. There is no acute hemorrhage. No calvarial fractures are visualized. There are patchy white matter hypodensities likely on a small vessel basis. There is persistent ventricular dilatation, similar to the prior study and likely secondary to volume loss. There is no evidence of acute sinusitis. Old bilateral meño holes are visualized. IMPRESSION: No acute intracranial findings Electronically signed by: Mitch Corbin M.D. 06/01/2018 6:[address] OF THE CERVICAL SPINE CLINICAL HISTORY: Neck pain status post trauma COMPARISON STUDY: December 27, 2016 CT DOSE: TECHNIQUE: CT scan of the cervical spine was performed from the skull base to the thoracic inlet. Images are reviewed in the axial, sagittal, and coronal planes. IV contrast was not administered for this examination. A dose lowering technique was utilized adhering to the principles of ALARA. FINDINGS: The visualized portions of the lung apices reveal no evidence of pneumothorax. There is biapical fibronodular scarring The prevertebral soft tissues are normal. No fractures or subluxations are visualized. There are multilevel degenerative changes IMPRESSION: No evidence of acute fracture or traumatic subluxation. Electronically signed by: Mitch Corbin M.D. 06/01/2018 6:06 PM XR hip RT 2-3V w pelvis CLINICAL HISTORY: Pain status post trauma COMPARISON: None. DISCUSSION: No acute fractures or dislocations are visualized. There are mild degenerative changes in the hips. There is no SI joint diastases. There is no symphysis diastases. IMPRESSION: No fractures or dislocations identified. Electronically signed by: Mitch Corbin M.D. 06/01/2018 5:[address] femur RT wo con CT DOSE: 1735.93 mGy.cm CLINICAL HISTORY: Right hip and femur pain status post trauma TECHNIQUE: Helical images were acquired in the transverse plane. Sagittal and coronal reformatted images were acquired. A dose lowering technique was utilized adhering to the principles of ALARA. COMPARISON STUDY: Commensurate radiographic study dated 06/01/2018 FINDINGS: There is a cortical step-off involving the lateral cortex of the femoral head neck junction. The findings are felt to be secondary to a nondisplaced subcapital hip fracture. No additional fractures are visualized. IMPRESSION: 1. Subtle nondisplaced subcapital right hip fracture. Electronically signed by: Mitch Crobin M.D. 06/01/2018 6:18 PM ECG Data Attestation: I personally reviewed and interpreted this ECG as follows: Indication: altered mental status Rate (beats per minute): 78 Rhythm: normal sinus Findings: + LBBB and + ST depression (lateral and inferior) Comparison ECG Date: from (08-JAN-2017) Change: no significant change Blood Pressure Blood Pressure Findings: Elevated blood pressure Blood Pressure Disposition: further management by hospitalist MIKE Jones The patient is an 78-year-old female who presented to the emergency department for right hip pain. The patient had a fall approximately 8 days ago. She had outpatient x-rays which showed a questionable fracture of the right hip. The patient did have a hip fracture clinically but our x-rays here did not show any acute abnormality. For this reason CT the hip was obtained which did show a subtle subcapital right hip fracture. I discussed the patient's laboratory and radiographic studies with her and her daughter. The patient has severe dementia. I discussed her case with the on-call [facility] hospitalist. They have agreed to evaluate the patient in the emergency department for further management and disposition. The patient was treated with IV fluids. She did have pain medications ordered but at this time she did not receive any pain medication because she was quite comfortable. The patient's daughter at this time does request that Dr. Elma irving be consulted for hip surgery if that is deemed necessary. Impression & Plan Closed subcapital fracture of right femur, Fall Discharge Plan Visit Data *Final* Discharge Date/Time: 06/01/18 18:56 Chief Complaint: Fall ED Provider: Kei Ramon Discharge Problem: Closed subcapital fracture of right femur, Fall Patient Disposition: Admitted As Inpatient Discharge Instructions Interventions: ED Discharge Assessment Last Done: 06/01/18 18:56 The scribe's documentation has been prepared under my direction and personally reviewed by me in its entirety. I confirm that the note above accurately reflects all work, treatment, procedures, and medical decision making performed by me.
[2018-06-01 17:25] LABS: Basophils # (auto) 0.05 K/uL (0-0.2); Basophils % (auto) 0.6 %; Eosinophils # (auto) 0.21 K/uL (0-0.5); Eosinophils % (auto) 2.6 %; Hematocrit (blood only) 39.7 % (37-47); Hemoglobin 12.3 g/dL (12.0-16.0); Immature Granulocytes # (auto) 0.02 K/uL (0.00-0.02); Immature Granulocytes % (auto) 0.2 %; Lymphocytes # (auto) 1.89 K/uL (1.2-3.4); Lymphocytes % (auto) 23.4 %; Mean Corpuscular Volume 86.3 fL (80-100); Mean Platelet Volume 9.4 fL (7.4-10.4); Monocytes # (auto) 0.69 K/uL (0.11-0.59); Monocytes % (auto) 8.6 %; Neutrophils % (auto) 64.6 %; Platelet Count 281 K/uL (130-400); RDW Coefficient of Variation 14.2 % (11.5-14.5); RDW Standard Deviation 44.6 fL (36.4-46.3); White Blood Count 8.06 K/uL (4.8-10.8)
[2018-06-01 17:51] LABS: Albumin Level 3.2 gm/dl (3.4-5.0); Bilirubin Direct 0.1 mg/dl (0-0.2); Est GFR (African American) 66.4; Est GFR (Non-African American) 57.3
--- NOTE | 2018-06-01 17:52 | XRay Report ---
XR chest 1V portable CLINICAL HISTORY: Trauma. Pain. COMPARISON STUDY: 01/08/2017 FINDINGS: The heart is mildly enlarged. There is no pneumothorax. There is no focal pulmonary consoli dation. There is mild chronic basilar interstitial thickening. There are no pleural effusions.[ There is a left upper lung zone calcified granuloma. IMPRESSION: No active disease in the chest. Electronically signed by: Mitch Corbin M.D. 06/01/2018 5:51 PM
[2018-06-01 17:53] LABS: Bilirubin,Total 0.3 mg/dl (0.2-1); Total Protein 6.6 gm/dl (6.4-8.2)
--- NOTE | 2018-06-01 17:55 | XRay Report ---
XR hip RT 2-3V w pelvis CLINICAL HISTORY: Pain status post trauma COMPARISON: None. DISCUSSION: No acute fractures or dislocations are visualized. There are mild degenerative changes in the hips. There is no SI joint diastases. There is no symphysis diastases. IMPRESSION: No fractures or dislocations identified. Electronically signed by: Mitch Corbin M.D. 06/01/2018 5:53 PM
--- NOTE | 2018-06-01 18:05 | CT Scan Report ---
CT head/brain wo con CLINICAL HISTORY: Head trauma. Altered mental status. COMPARISON STUDY: 01/08/2017 TECHNIQUE: Axial CT of the brain is performed from the vertex to the skull base. IV contrast was not administered for this examination. A dose lowering technique was utilized adhering to the principles of ALARA. CT DOSE: FINDINGS: No intra or extra-axial mass lesions are visualized. There is no CT evidence of acute cortical infarc tion. There is no evidence of midline shift. There is no acute hemorrhage. No calvarial fractures ar e visualized. There are patchy white matter hypodensities likely on a small vessel basis. There is persistent ventricular dilatation, similar to the prior study and likely secondary to volume loss. There is no evidence of acute sinusitis. Old bilateral meño holes are visualized. IMPRESSION: No acute intracranial findings Electronically signed by: Mitch Corbin M.D. 06/01/2018 6:04 PM
--- NOTE | 2018-06-01 18:08 | CT Scan Report ---
CT OF THE CERVICAL SPINE CLINICAL HISTORY: Neck pain status post trauma COMPARISON STUDY: December 27, 2016 CT DOSE: TECHNIQUE: CT scan of the cervical spine was performed from the skull base to the thoracic inlet. Ruma ges are reviewed in the axial, sagittal, and coronal planes. IV contrast was not administered for thi s examination. A dose lowering technique was utilized adhering to the principles of ALARA. FINDINGS: The visualized portions of the lung apices reveal no evidence of pneumothorax. There is biapical fibr onodular scarring The prevertebral soft tissues are normal. No fractures or subluxations are visualized. There are multilevel degenerative changes IMPRESSION: No evidence of acute fracture or traumatic subluxation. Electronically signed by: Mitch Corbin M.D. 06/01/2018 6:06 PM
--- NOTE | 2018-06-01 18:19 | CT Scan Report ---
CT femur RT wo con CT DOSE: 1735.93 mGy.cm CLINICAL HISTORY: Right hip and femur pain status post trauma TECHNIQUE: Helical images were acquired in the transverse plane. Sagittal and coronal reformatted kylie ges were acquired. A dose lowering technique was utilized adhering to the principles of ALARA. COMPARISON STUDY: Commensurate radiographic study dated 06/01/2018 FINDINGS: There is a cortical step-off involving the lateral cortex of the femoral head neck junction . The findings are felt to be secondary to a nondisplaced subcapital hip fracture. No additional frac tures are visualized. IMPRESSION: 1. Subtle nondisplaced subcapital right hip fracture. Electronically signed by: Mitch Corbin M.D. 06/01/2018 6:18 PM
--- NOTE | 2018-06-01 18:41 | History & Physical Report ---
Date of Service June 01, 2018 Assessment & Plan (1) Subcapital fracture of hip: Patient is a subcapital fracture seen on CT scan Dr. Wills will be consulted patient be kept n.p.o. after midnight (2) Dementia: continue memantine, seroquel hs for sleep (3) Depression: continue cymbalta History of Present Illness Primary Care Provider: [facility] Patient had a fall at [facility] on the she subsequently has decreased function since that time is been worsening over the last 1 week she is unable to bear weight on her right leg multiple x-rays have been unremarkable CT scan confirmed a subcapital hip fracture patient has dementia she is accompanied by her daughter who supplies most of the information. The patient even on exam cannot reliably confirm how much pain she had does or does not have Allergies Allergy/AdvReac Type Severity Reaction Status Date / Time No Known Allergies Allergy Verified 06/01/18 17:16 Home Medications Home Medications Medication Instructions Recorded Confirmed Type acetaminophen [Tylenol] 650 mg PO Q4 PRN MDD 3 GRAMS/24 06/01/18 06/01/18 History HOURS acetaminophen [Tylenol] 650 mg PO TID 06/01/18 06/01/18 History bisacodyl [Dulcolax (bisacodyl)] 10 mg TX DAILY PRN 06/01/18 06/01/18 History duloxetine [Cymbalta] 60 mg PO QAM 06/01/18 06/01/18 History lidocaine [Lidoderm] 1 patch TOPICAL HS 06/01/18 06/01/18 History magnesium hydroxide [Milk of 30 ml PO DAILY PRN 06/01/18 06/01/18 History Magnesia] memantine [Namenda XR] 14 mg PO QAM 06/01/18 06/01/18 History naproxen sodium [Aleve] 220 mg PO QAM 06/01/18 06/01/18 History polyethylene glycol 3350 [Miralax] 17 g PO QAM 06/01/18 06/01/18 History quetiapine [Seroquel] 12.5 mg PO QPM 06/01/18 06/01/18 History sodium phosphates [Fleet Enema] 118 ml TX DAILY PRN 06/01/18 06/01/18 History tramadol 50 mg PO Q4 PRN 06/01/18 06/01/18 History Past Med/Surg History Medical History Dementia (Chronic) Hyperlipidemia (Chronic) Change in mental status (Resolved) Declining functional status Syncope (Resolved) Family history non-contributory Surgical History No significant past surgical history Family History Other Family history non-contributory Social History marital status: Current Living Situation: Care Home Current Living Situation Comment: [place] Other Information That Helps Us Care for You: No Feels Safe at Home: Yes Smoking Status: Former smoker Tobacco Type: cigarettes Do You Dip or Chew Tobacco: No Smoking End Date: 1988 Hx Alcohol Use: No Hx Substance Use: No Beliefs That Will Affect Care: None Communication Ability: Impaired Review of Systems ROS: This is established by her daughter well nourished well developed. No double vision blurry vision No problems with speech or swallowing No palpitations, chest pain or pressure No Wheezing or breathing issues No abdominal pain nausea vomiting diarrhea changes in appetite or weight No burning urine urine frequency or changes in color she is frequently incontinent No focal joint pain or muscle pain but does complain of pain in her left hip when she bears weight No skin rashes or oral lesions No unusual bruising or bleeding No focused back pain or numbness or loss of strength She has persistent issues with memory and mild confusion Physical Exam 2 Vital Signs (Past 24 Hours): Last Vital Signs Temp 36.2 C L 06/01/18 17:11 Pulse 73 06/01/18 18:23 Resp 16 06/01/18 18:23 BP 159/76 H 06/01/18 18:23 Pulse Ox 97 06/01/18 18:23 The patient appeared well nourished and normally developed. She is pleasantly confused Vital signs as documented. Head exam is unremarkable. His dry mucous membranes Neck is without jugular venous distension, thyromegaly, or lymphademopathy Lungs are clear to auscultation and percussion. Cardiac exam reveals Rhythm is regular. First and second heart sounds normal. No murmurs, rubs or gallops. Abdominal exam reveals normal bowel sounds, no masses, no organomegaly Extremities are nonedematous and both pedal pulses are normal. The patient resisted attempts to flex her left leg forward or do external and internal rotation becomes rigid Neurologic exam is A&Ox2, no focal deficits, strength is equal bilateral Skin is warm Dry without bruises or lesions Results & Data Diagnostic Findings CT of hip There is a cortical step-off involving the lateral cortex of the femoral head neck junction. The findings are felt to be secondary to a nondisplaced subcapital hip fracture. No additional fractures are visualized. ECG Rhythm: normal sinus Findings: + LBBB
[2018-06-01 18:49] LABS: Prothrombin Time 10.4 Seconds (9.0-12.0)
[2018-06-01] MEDS ORDERED: MAGNESIUM HYDROXIDE SUSP 30 ML UDC PO PRN ×2 (19:23)
[2018-06-01] MEDS ORDERED: NALOXONE HCL 0.4 MG/1 ML VIAL/CARP IV PRN (19:23)
[2018-06-01] MEDS ORDERED: BISACODYL 10 MG SUPP PR PRN (19:23)
[2018-06-01] MEDS ORDERED: ACETAMINOPHEN 325 MG TAB PO PRN (19:23)
[2018-06-01] MEDS ORDERED: OXYCODONE HCL IR 5 MG TAB (IMMEDIATE RELEASE) PO PRN (19:23)
[2018-06-01] MEDS ORDERED: MoRPHine SULFATE 2 MG/ML CARP IV PRN (19:23)
[2018-06-01] MEDS ORDERED: MoRPHine SULFATE 4 MG/ML 1 ML CARP\\VIAL IV PRN (19:23)
[2018-06-01] MEDS ORDERED: SOD PHOSPHATE/SOD BIPHOSPHATE ENEMA 132 ML BTL PR PRN (19:23)
[2018-06-01] MEDS: DOCUSATE SODIUM/SENNA 50/8.6MG TAB PO SCH (21:30)
[2018-06-01] MEDS: QUETIAPINE FUMARATE 25 MG TABLET PO SCH (21:30)
[2018-06-01] MEDS ORDERED: PNEUMOCOCCAL ADMINISTRATION CHARGE ONE (22:00)
[2018-06-01] MEDS ORDERED: PNEUMOCOCCAL POLYSACCHARIDES 25 MCG/0.5 ML VIAL/SYR IM ONE (22:00)
[2018-06-01] MEDS: LACTATED RINGER'S 1,000 ML IV SCH (23:57)
[2018-06-02] MEDS ORDERED: CEFAZOLIN 2000MG 2,000 MG/15 ML SYR IV SCH (06:00)
[2018-06-02 06:59] LABS: Appearance Urine Clear (Clear); Bilirubin Urine Negative (Negative); Color Urine Yellow; Glucose Urine UA Negative (Negative); Ketones Urine Negative (Negative); Leukocyte Esterase Urine Negative (Negative); Nitrite Urine Positive (Negative); Protein Urine Negative (Negative); Specific Gravity Urine 1.015 (1.000-1.030); Urobilinogen Urine Negative (Negative)
[2018-06-02 07:11] LABS: RBC Urine 0-4 /hpf (0-4)
[2018-06-02 07:12] LABS: Bacteria Urine 4+ (Negative); Hyaline Casts Urine 0-5 /lpf (0-5)
[2018-06-02 07:14] LABS: Renal Epithelial Cells Urine 0-5 /lpf (0-5)
[2018-06-02] MEDS: DULOXETINE HCL 60 MG CAP PO SCH (08:18)
[2018-06-02] MEDS: POLYETHYLENE (MIRALAX) 17 GM PACK PO SCH (08:23)
--- NOTE | 2018-06-02 08:32 | Orthopedic Consultation ---
Date of Consultation June 02, 2018 Assessment & Plan (1) Closed subcapital fracture of right femur: Subcapital hip fracture right hip as noted on x-ray. Patient will require 7.3 cannulated screw percutaneous pinning of this hip fracture. X-rays have been reviewed by Dr. Gutierrez and amanda. Plan for ORIF later today. We will discuss this case with medicine service to ensure that she is cleared for surgery. Thank you for this consultation. History of Present Illness Reason for Consultation: Right subcapital hip fracture. Attending Physician: Jah Altamirano MD History of Present Illness 78-year-old white female who resides at [facility] who apparently fell approximately 1 week prior to admission. Her daughter is not present and history is taken from mainly the chart due to the patient's dementia. After her fall at [facility], she apparently continue to decrease her activity and was increasingly unable to bear weight on the right lower extremity. She was brought in for x-ray which showed no fracture identified however CT scan confirmed subcapital hip fracture of the right hip. Patient was not reliable with telling how much pain she was having in the right hip at the time of admission. Currently she is awake and alert but confused and is pleasant. Most of the questions asked that she smiles and giggles a little bit. She does answer a few questions but no overt history is taken from the patient. She does follow a few commands. She does not appear to be in acute distress or pain. We have been asked to see her for her right subcapital hip fracture. Allergies Allergy/AdvReac Type Severity Reaction Status Date / Time No Known Allergies Allergy Verified 06/01/18 17:16 Home Medications Home Medications Medication Instructions Recorded Confirmed Type acetaminophen [Tylenol] 650 mg PO Q4 PRN MDD 3 GRAMS/24 06/01/18 06/01/18 History HOURS acetaminophen [Tylenol] 650 mg PO TID 06/01/18 06/01/18 History bisacodyl [Dulcolax (bisacodyl)] 10 mg [place] DAILY PRN 06/01/18 06/01/18 History duloxetine [Cymbalta] 60 mg PO QAM 06/01/18 06/01/18 History lidocaine [Lidoderm] 1 patch TOPICAL HS 06/01/18 06/01/18 History magnesium hydroxide [Milk of 30 ml PO DAILY PRN 06/01/18 06/01/18 History Magnesia] memantine [Namenda XR] 14 mg PO QAM 06/01/18 06/01/18 History naproxen sodium [Aleve] 220 mg PO QAM 06/01/18 06/01/18 History polyethylene glycol 3350 [Miralax] 17 g PO QAM 06/01/18 06/01/18 History quetiapine [Seroquel] 12.5 mg PO QPM 06/01/18 06/01/18 History sodium phosphates [Fleet Enema] 118 ml [place] DAILY PRN 06/01/18 06/01/18 History tramadol 50 mg PO Q4 PRN 06/01/18 06/01/18 History Patient History Medical History Dementia (Chronic) Hyperlipidemia (Chronic) Change in mental status (Resolved) Declining functional status Syncope (Resolved) Family history non-contributory Surgical History No significant past surgical history Family History Other Family history non-contributory Social History Current Living Situation: Half-Way Current Living Situation Comment: [place] Other Information That Helps Us Care for You: No Feels Safe at Home: Yes Smoking Status: Former smoker Tobacco Type: cigarettes Do You Dip or Chew Tobacco: No Smoking End Date: 1988 Second Hand Exposure: No Tobacco Cessation Education Requested by Patient: No Hx Alcohol Use: No Hx Substance Use: No Beliefs That Will Affect Care: None Preferred Language: Armenian Communication Ability: Impaired Junior Recruiter Required: No Review of Systems As per admitting history and physical. Patient unable to give history at this time due to dementia. Physical Exam 2 Vital Signs (Past 24 Hours): Last Vital Signs Temp 36.9 C 06/02/18 07:46 Pulse 77 06/02/18 07:46 Resp 17 06/02/18 07:46 BP 168/94 H 06/02/18 07:46 Pulse Ox 97 06/02/18 07:46 Physical Exam: Examination is mainly of the right lower extremity. With the help of nursing staff, the patient is able to turn over onto her back briefly. She continued to remain pleasant during the exam. No overt bruising is noted at this time of the right lower extremity and when I take her through gentle range of motion of flexion-extension, internal and external rotation, and small amount of abduction and abduction, she does not appear to have any pain. When asked, she denies pain. She returns to laying on her side and in a flexed position at the hips and knees. Left lower extremity is nontender on palpation at the left hip knee and ankle. She does follow commands to move her toes on both feet at this time. Pulses are equal bilaterally. Sensation appears to be intact. When touching her feet, she says "that tickles". Upper extremity exam appears to be benign. No obvious pain on palpation at the shoulders elbows and wrists. Range of motion appears to be intact. No obvious pain on palpation of her neck at this time. _ (1) Closed subcapital fracture of right femur Encounter type: initial encounter Fracture healing: Qualified Code(s): S72.011A - Unspecified intracapsular fracture of right femur, initial encounter for closed fracture
[2018-06-02 09:11] LABS: Hemoglobin 12.2 g/dL (12.0-16.0); Mean Corpuscular Hgb Conc 30.5 g/dL (32-36); Mean Corpuscular Volume 86.6 fL (80-100); Platelet Count 260 K/uL (130-400); RDW Coefficient of Variation 14.4 % (11.5-14.5); RDW Standard Deviation 44.8 fL (36.4-46.3); Red Blood Count 4.62 M/uL (4.2-5.4); White Blood Count 7.58 K/uL (4.8-10.8)
[2018-06-02 09:51] LABS: BUN Creatinine Ratio 45.4 (10-20); Calcium 8.7 mg/dl (8.5-10.1); Creatinine Clr Calc Pharmacy 51.1 ml/min; Est GFR (African American) 81.9; Est GFR (Non-African American) 70.7; Potassium 4.1 mmol/L (3.5-5.1)
--- NOTE | 2018-06-02 10:13 | Anesthesiology Consultation ---
Date of Service June 02, 2018 Assessment & Plan (1) Encounter for pre-operative examination: Chart Review Chart Review: Acceptable Risk for Surgery and Patient NOT seen in Pre Admission Testing Consults Requested none NPO Date Last Intake of Fluids: 06/01/18 Time Last Intake of Fluids: 23:59 Date Last Intake of Solids: 06/01/18 Time Last Intake of Solids: 23:59 History Surgery Operation Date: 06/02/18 15:00 Proposed Procedures p Right Percutaneous Pinning 3.7 Cannulated Screws Melvi - Chet Gutierrez MD Height/Weight Height: 5 ft 5 in Weight: 65 kg Allergies Allergy/AdvReac Type Severity Reaction Status Date / Time No Known Allergies Allergy Verified 06/01/18 17:16 Medications Home Medications Medication Instructions Recorded Confirmed Last Taken acetaminophen [Tylenol] 650 mg PO Q4 PRN MDD 3 GRAMS/24 06/01/18 06/01/18 Unknown HOURS acetaminophen [Tylenol] 650 mg PO TID 06/01/18 06/01/18 06/01/18 bisacodyl [Dulcolax (bisacodyl)] 10 mg [place] DAILY PRN 06/01/18 06/01/18 Unknown duloxetine [Cymbalta] 60 mg PO QAM 06/01/18 06/01/18 06/01/18 lidocaine [Lidoderm] 1 patch TOPICAL HS 06/01/18 06/01/18 05/31/18 magnesium hydroxide [Milk of 30 ml PO DAILY PRN 06/01/18 06/01/18 Unknown Magnesia] memantine [Namenda XR] 14 mg PO QAM 06/01/18 06/01/18 06/01/18 naproxen sodium [Aleve] 220 mg PO QAM 06/01/18 06/01/18 06/01/18 polyethylene glycol 3350 [Miralax] 17 g PO QAM 06/01/18 06/01/18 06/01/18 quetiapine [Seroquel] 12.5 mg PO QPM 06/01/18 06/01/18 05/31/18 sodium phosphates [Fleet Enema] 118 ml [place] DAILY PRN 06/01/18 06/01/18 Unknown tramadol 50 mg PO Q4 PRN 06/01/18 06/01/18 Unknown Active Medications Generic Name Dose Route Start Last Admin Trade Name Freq PRN Reason Stop Dose Admin Duloxetine HCl 60 mg 06/02/18 09:00 06/02/18 08:18 Cymbalta PO 07/02/18 08:59 60 mg QAM GRADY Administration Lactated Ringer's 1,000 mls @ 75 mls/hr 06/01/18 23:50 06/02/18 06:26 Lr IV 07/01/18 23:49 75 mls/hr .[id number] GRADY Infusion Miscellaneous 1 ea 06/02/18 00:00 06/02/18 07:36 Order Awaiting Action N/A 07/02/18 00:00 Not Given QS GRADY Polyethylene Glycol 17 gm 06/02/18 09:00 06/02/18 08:23 Miralax Powder Packet PO 07/02/18 08:59 Not Given QAM GRADY Quetiapine Fumarate 12.5 mg 06/01/18 21:00 06/01/18 21:30 Seroquel PO 07/01/18 20:59 12.5 mg QPM GRADY Administration Senna/Docusate Sodium 2 tab 06/01/18 21:00 06/01/18 21:30 Senokot S PO 07/01/18 20:59 2 tab HS GRADY Administration Past Medical History Medical History Dementia (Chronic) Hyperlipidemia (Chronic) Change in mental status (Resolved) Declining functional status Syncope (Resolved) Family history non-contributory Past Family History Family History Other Family history non-contributory Past Surgical History Surgical History No significant past surgical history Social History Smoking Status: Former smoker tobacco type: cigarettes Do You Dip or Chew Tobacco: No Smoking End Date: 1988 Hx Alcohol Use: No Hx Substance Use: No substance use type: does not use Physical Exam Vital Signs Last Vital Signs Temp 36.9 C 06/02/18 07:46 Pulse 77 06/02/18 07:46 Resp 17 06/02/18 07:46 BP 168/94 H 06/02/18 07:46 Pulse Ox 97 06/02/18 07:46 Constitutional + altered mental status (Baseline severe dementia); no acute distress ENMT Mouth: no dentition abnormality (Not apparent. Patient will not open mounth to request.) Thyromental Distance: > or= 3.5 Finger Breadths Mallampati Class: II (Presumptive. Patient will not follow commands.) Neck normal visual inspection Respiratory normal respiratory effort Cardiovascular Rate/Rhythm: regular rate and regular rhythm Musculoskeletal Spine: normal cervical ROM (Patient appears to have no limitations.) Neurologic moves all extremities Psychiatric Orientation: alert; + not oriented x 3 (Patient laughs, smiles, and interacts with interview. Does not answer questions. ) Testing Electrocardiogram Date: 06/01/18 Findings: + NSR @ and + LBBB Other Testing CT Head: No acute bleed Laboratory Results 06/02/18 08:57 06/02/18 08:57 Blood Type A Positive 06/01/18 18:14 Antibody Screen NEGATIVE 06/01/18 18:14 PT 10.4 Seconds (9.0-12.0) 06/01/18 18:14 INR 1.0 (0.9-1.1) 06/01/18 18:14 APTT 26.0 Seconds (21.0-31.0) 06/01/18 18:14 Urine Color Yellow 06/02/18 06:24 Urine Appearance Clear (Clear) 06/02/18 06:24 Urine pH 7.0 (4.5-7.5) 06/02/18 06:24 Ur Specific [place] 1.015 (1.000-1.030) 06/02/18 06:24 Urine Protein Negative (Negative) 06/02/18 06:24 Urine Glucose (UA) Negative (Negative) 06/02/18 06:24 Urine Ketones Negative (Negative) 06/02/18 06:24 Urine Nitrite Positive (Negative) H 06/02/18 06:24 Ur Leukocyte Esterase Negative (Negative) 06/02/18 06:24 Urine RBC 0-4 /hpf (0-4) 06/02/18 06:24 Urine WBC 10-30 /hpf (0-5) H 06/02/18 06:24 Ur Epithelial Cells 20-30 /lpf (0-5) H 06/02/18 06:24
[2018-06-02] MEDS: LACTATED RINGER'S 1,000 ML IV SCH (11:48)
--- NOTE | 2018-06-02 14:20 | History & Physical Bridge Note ---
Date of Service June 02, 2018 History & Physical Bridge Note I have examined the patient, reviewed the History & Physical and in the interval since the performance of the History & Physical I have noted the following changes of clinical significance: no changes noted
--- NOTE | 2018-06-02 15:02 | Hospitalist Progress Note ---
Date of Service June 02, 2018 Assessment & Plan (1) Subcapital fracture of hip: Left subcapital fracture seen on CT scan. Plan for nail with orthopedics on 06/02. - NPO - Pain control (2) Dementia: Severe dementia at baseline. Patient is AAOx0 and doesn't even answer all questions appropriately. - Continue memantine & duloxetine - Continue quetiapeine QHS for sleep (3) Depression: - Continue cymbalta (4) DVT prophylaxis: SCDs until after surgery Subjective 78yo F w/ hx of dementia who presents with left hip fracture. This morning, she was in good spirits. No major complaints. AAOx0 due to her dementia. Reports no fevers/chills, chest pain, shortness of breath, abdominal pain, nausea, or vomiting, but also sometimes has trouble answering the question. Physical Exam 2 Vital Signs (Past 24 Hours): Last Vital Signs Temp 36.8 C 06/02/18 14:50 Pulse 89 06/02/18 14:50 Resp 18 06/02/18 14:50 BP 186/99 H 06/02/18 14:50 Pulse Ox 97 06/02/18 14:50 Constitutional: + altered mental status (Baseline severe dementia); no acute distress ENMT: Mallampati Class: II (Presumptive. Patient will not follow commands.) Neck: normal visual inspection Respiratory: normal respiratory effort Cardiovascular: Rate/Rhythm: regular rate and regular rhythm Gastrointestinal (Abdomen): normal bowel sounds, soft, nontender, no hepatosplenomegaly Musculoskeletal: Spine: normal cervical ROM (Patient appears to have no limitations.) Neurologic: moves all extremities Psychiatric: Orientation: alert; + not oriented x 3 (Patient laughs, smiles, and interacts with interview. Does not answer questions. )
[2018-06-02] MEDS ORDERED: fentaNYL citrate 100 MCG/2 ML VIAL ONE (15:14)
[2018-06-02] MEDS ORDERED: PROPOFOL IV EMULSION 10 MG/ML 20 ML VIAL IV ONE ×2 (15:20→17:00)
[2018-06-02] MEDS ORDERED: LIDOCAINE HCL 2% 2 ML VIAL/AMP(20MG/ML) INFIL ONE (15:20)
--- NOTE | 2018-06-02 15:20 | Anesthesiology Consultation ---
Date of Service June 02, 2018 Assessment & Plan (1) Encounter for pre-operative examination: Chart Review Chart Review: Acceptable Risk for Surgery and Patient NOT seen in Pre Admission Testing Proposed Anesthesia Risk / Benefits Reviewed With: PT / POA / Parent / Guardian, Accepts Plan and Informed Consent Obtained NPO Date Last Intake of Fluids: 06/01/18 Time Last Intake of Fluids: 23:59 Date Last Intake of Solids: 06/01/18 Time Last Intake of Solids: 17:00 History Surgery Operation Date: 06/02/18 15:00 Proposed Procedures p Right Percutaneous Pinning 3.7 Cannulated Screws Melvi - Chet Gutierrez MD Height/Weight Height: 5 ft 5 in Weight: 65 kg Allergies Allergy/AdvReac Type Severity Reaction Status Date / Time No Known Allergies Allergy Verified 06/01/18 17:16 Medications Home Medications Medication Instructions Recorded Confirmed Last Taken acetaminophen [Tylenol] 650 mg PO Q4 PRN MDD 3 GRAMS/24 06/01/18 06/01/18 Unknown HOURS acetaminophen [Tylenol] 650 mg PO TID 06/01/18 06/01/18 06/01/18 bisacodyl [Dulcolax (bisacodyl)] 10 mg [place] DAILY PRN 06/01/18 06/01/18 Unknown duloxetine [Cymbalta] 60 mg PO QAM 06/01/18 06/01/18 06/01/18 lidocaine [Lidoderm] 1 patch TOPICAL HS 06/01/18 06/01/18 05/31/18 magnesium hydroxide [Milk of 30 ml PO DAILY PRN 06/01/18 06/01/18 Unknown Magnesia] memantine [Namenda XR] 14 mg PO QAM 06/01/18 06/01/18 06/01/18 naproxen sodium [Aleve] 220 mg PO QAM 06/01/18 06/01/18 06/01/18 polyethylene glycol 3350 [Miralax] 17 g PO QAM 06/01/18 06/01/18 06/01/18 quetiapine [Seroquel] 12.5 mg PO QPM 06/01/18 06/01/18 05/31/18 sodium phosphates [Fleet Enema] 118 ml [place] DAILY PRN 06/01/18 06/01/18 Unknown tramadol 50 mg PO Q4 PRN 06/01/18 06/01/18 Unknown Active Medications Generic Name Dose Route Start Last Admin Trade Name [place] PRN Reason Stop Dose Admin Duloxetine HCl 60 mg 06/02/18 09:00 06/02/18 08:18 Cymbalta PO 07/02/18 08:59 60 mg QAM GRADY Administration Lactated Ringer's 1,000 mls @ 75 mls/hr 06/01/18 23:50 06/02/18 11:48 Lr IV 07/01/18 23:49 75 mls/hr .[id number] GRADY Administration Miscellaneous 1 ea 06/02/18 00:00 06/02/18 07:36 Order Awaiting Action N/A 07/02/18 00:00 Not Given QS GRADY Polyethylene Glycol 17 gm 06/02/18 09:00 06/02/18 08:23 Miralax Powder Packet PO 07/02/18 08:59 Not Given QAM GRADY Quetiapine Fumarate 12.5 mg 06/01/18 21:00 06/01/18 21:30 Seroquel PO 07/01/18 20:59 12.5 mg QPM GRADY Administration Senna/Docusate Sodium 2 tab 06/01/18 21:00 06/01/18 21:30 Senokot S PO 07/01/18 20:59 2 tab HS GRADY Administration Past Medical History Medical History Dementia (Chronic) Hyperlipidemia (Chronic) Change in mental status (Resolved) Declining functional status Syncope (Resolved) Family history non-contributory Hypertension Past Family History Family History Other Family history non-contributory Past Surgical History Surgical History No significant past surgical history H/O: hysterectomy Past Anesthesia History No Hx of Anesthesia Complications and No Family Hx of Anesthesia Complications History of PONV No Motion Sickness Screening History of Motion Sickness: No Social History Smoking Status: Former smoker tobacco type: cigarettes Do You Dip or Chew Tobacco: No Smoking End Date: 1988 Hx Alcohol Use: No Hx Substance Use: No substance use type: does not use Exercise / Class Metabolic Activity III < 4 Walking/Shop/Light housework Review of Systems limited ROS due to severe dementia. Not oriented x 3 Physical Exam Vital Signs Last Vital Signs Temp 36.8 C 06/02/18 14:50 Pulse 89 06/02/18 14:50 Resp 18 06/02/18 14:50 BP 186/99 H 06/02/18 14:50 Pulse Ox 97 06/02/18 14:50 Constitutional not obese ENMT Thyromental Distance: < 3.5 Finger Breadths Patient with severe dementia and not following commands Respiratory normal respiratory effort Auscultation: lungs clear to auscultation bilaterally Cardiovascular Rate/Rhythm: regular rate and regular rhythm Heart Sounds: no murmur Psychiatric A+Ox3, euthymic affect Orientation: + not oriented x 3 Testing Electrocardiogram Date: 06/01/18 Findings: + NSR @ 78 and + LBBB Echocardiogram Date: 12/28/16 EF: 65-70% � Normal biventricular systolic function. � Moderate concentric left ventricular hypertrophy. � Class 1 LV diastolic dysfunction. � Normal chamber dimensions. � Mild tricuspid regurgitation. � Normal estimated right ventricular systolic and central venous pressures. � Compared to an echo of June 06, 2013 there has been no significant interval change. � -- Conclusions -- � Aortic valve sclerosis mild, without significant aortic valvular stenosis. Procedure Details Laboratory Results 06/02/18 08:57 06/02/18 08:57 Blood Type A Positive 06/01/18 18:14 Antibody Screen NEGATIVE 06/01/18 18:14 PT 10.4 Seconds (9.0-12.0) 06/01/18 18:14 INR 1.0 (0.9-1.1) 06/01/18 18:14 APTT 26.0 Seconds (21.0-31.0) 06/01/18 18:14 Urine Color Yellow 06/02/18 06:24 Urine Appearance Clear (Clear) 06/02/18 06:24 Urine pH 7.0 (4.5-7.5) 06/02/18 06:24 Ur Specific [place] 1.015 (1.000-1.030) 06/02/18 06:24 Urine Protein Negative (Negative) 06/02/18 06:24 Urine Glucose (UA) Negative (Negative) 06/02/18 06:24 Urine Ketones Negative (Negative) 06/02/18 06:24 Urine Nitrite Positive (Negative) H 06/02/18 06:24 Ur Leukocyte Esterase Negative (Negative) 06/02/18 06:24 Urine RBC 0-4 /hpf (0-4) 06/02/18 06:24 Urine WBC 10-30 /hpf (0-5) H 06/02/18 06:24 Ur Epithelial Cells 20-30 /lpf (0-5) H 06/02/18 06:24
[2018-06-02] MEDS ORDERED: MIDAZOLAM HCL 1 MG/ML 2ML VIAL ONE (15:36)
[2018-06-02] MEDS ORDERED: BUPIVACAINE 0.5 % 5 MG/1 ML PF 10ML VIAL ONE (15:54)
[2018-06-02] MEDS ORDERED: ONDANSETRON INJ 2 MG/ML 2 ML VIAL ONE (17:00)
[2018-06-02] MEDS ORDERED: LABETALOL HCL IV 5 MG/ML 20ML IV ONE (17:15)
--- NOTE | 2018-06-02 17:24 | Operative Report ---
Post Operative Report Pre & Post Diagnosis Operation Date: 06/02/18 15:00 Pre-Op Diagnosis: Right subcapital hip fracture Post-Op Diagnosis: Right subcapital hip fracture Procedure Operation Date: 06/02/18 15:00 Actual Procedures p Open Reduction Internal Fixation Right Hip Fracture(Right) - Chet Gutierrez MD Surgeon Chet Gutierrez MD Route Sales Associate None Estimated Blood Loss 10 Findings Consistent with Post-Op Diagnosis Specimens None Drains None Anesthesia Type Spinal MAC Indications The patient is an 78-year-old female who sustained a injury to the right hip. This happened about 7 or 8 days ago she has been ambulating on the hip with increasing pain. Initial x-rays from outside facility were apparently negative. She had persistent pain and CT scan demonstrated a nondisplaced subcapital femoral neck fracture. Given the nature of the injury we recommended open reduction internal fixation with cannulated screws to the patient and her daughter and they wish to proceed. Description of Procedure Risks benefits and alternatives of surgery including but not limited to infection, DVT, PE, pain, stiffness, need for surgery, damage to blood vessels, damage to nerves or risks of anesthesia, were discussed with the patient and her family and they wished to proceed. Patient was identified in the laterality was confirmed and marked. They received a preoperative antibiotic. The patient was transferred to the fracture table. The operative limb was placed in traction and the well leg was placed in a well leg [place] that was well-padded. The arms were well-padded and placed out of the way of the surgical field. I confirmed reduction of the fracture with fluoroscopy. The hip was then prepped and draped in the usual standard manner with ChloraPrep. I made a longitudinal incision distal to the greater trochanter. I sharply incised through the skin and then used Bovie electrocautery to achieve hemostasis. I incised through the fascia and then bluntly dissected down to the tip of the greater trochanter. Under fluoroscopic guidance I placed a guide pin into the lateral cortex of the femur. Under fluoroscopic guidance and made corrections to the trajectory of the pin as needed. I placed one pin in a posterior inferior location. I then used a [address] guide to place a second time into a posterior superior region. I then placed a third pin to achieve fixation along the anterior cortex of the femoral neck forming a triangular pattern to my screw position. I then measured for each screw individually. I drilled the near cortex and then advanced the screw under power and then compressed the fracture using a hand screwdriver. I confirmed the screw lengths and position of the screws on AP and lateral fluoroscopy views. I was satisfied with the position of the screws and the length of the screws. The wound was then thoroughly irrigated. The fascia was closed with interrupted #1 Vicryl suture. Subcutaneous tissues closed with interrupted 2-0 Vicryl suture and the skin with georgiana. Sterile dressings applied. All needle and sponge counts were correct at the end of the procedure the patient was transferred to the PACU in stable condition without apparent complication. I attest to the content of the Intraoperative Record and any orders documented therein. Any exceptions are noted below.
--- NOTE | 2018-06-02 17:38 | Fluoroscopy Report ---
FL hip RT 2-3V CLINICAL HISTORY: RT CANNULATED SCREWSright hip fracture COMPARISON STUDY: CT scan dated 06/01/2018 FLUOROSCOPY TIME: 62 seconds. NUMBER OF FLUOROSCOPIC IMAGES: 2 FINDINGS: 2 intraoperative fluoroscopic spot images demonstrate internal fixation of a subcapital rig ht hip fracture with 3 cannulated screws. IMPRESSION: Internally fixated subcapital right hip fracture with 3 cannulated screws Electronically signed by: Mitch Corbin M.D. 06/02/2018 5:37 PM
--- NOTE | 2018-06-02 18:19 | XRay Report ---
XR hip RT min 2V CLINICAL HISTORY: Post-Operative implant position COMPARISON STUDY: Right hip 06/01/2018. FINDINGS: Status post internal fixation of a right femoral neck fracture with 3 cannulated screws. Th e hardware appears intact. No dislocation. Lateral skin georgiana are noted. IMPRESSION: Status post internal fixation of a right femoral neck fracture with 3 cannulated screws. The hardware appears intact. Electronically signed by: Arnulfo Douglas M.D. 06/02/2018 6:18 PM
[2018-06-02] MEDS ORDERED: NALOXONE HCL 0.4 MG/1 ML VIAL/CARP IV PRN (19:19)
--- NOTE | 2018-06-02 19:41 | Anesthesiology Progress Note ---
Date of Service June 02, 2018 Anesthesia Post Procedure Vital Signs Vital Signs: Temp Pulse Pulse Resp BP BP Pulse Ox 06/02/18 18:45 36.6 C 69 16 156/92 H 93 06/02/18 18:35 66 19 151/86 H 97 06/02/18 18:25 71 16 150/84 H 96 06/02/18 18:15 66 15 162/80 H 95 06/02/18 18:05 82 16 105/77 98 06/02/18 17:55 63 15 154/84 H 100 06/02/18 17:45 63 18 151/91 H 100 06/02/18 17:35 61 17 157/85 H 100 06/02/18 17:26 36.7 C 70 16 171/84 H 96 06/02/18 14:50 36.8 C 89 18 186/99 H 97 06/02/18 07:46 36.9 C 77 17 168/94 H 97 06/02/18 06:43 06/01/18 23:45 06/01/18 22:54 36.4 C L 94 H 16 129/76 97 06/01/18 20:00 36.6 C 71 16 162/80 H 97 Pulse Ox 06/02/18 18:45 06/02/18 18:35 06/02/18 18:25 06/02/18 18:15 06/02/18 18:05 06/02/18 17:55 06/02/18 17:45 06/02/18 17:35 06/02/18 17:26 06/02/18 14:50 06/02/18 07:46 06/02/18 06:43 95 06/01/18 23:45 97 06/01/18 22:54 06/01/18 20:00 Pain Intensity Right Hip: Pain Intensity: 0 Notes Mental Status: alert / awake / arousable and participated in evaluation Nausea / Vomiting: adequately controlled Pain: adequately controlled Airway Patency, RR, SpO2: stable & adequate BP & HR: stable & adequate Hydration State: stable & adequate Neuraxial Anesthesia: was administered and sensory block is resolving Anesthetic Complications: no major complications apparent Notes: Patient with severe dementia, but appeared to be back to her preoperative cognitive level in PACU.
[2018-06-02] MEDS: QUETIAPINE FUMARATE 25 MG TABLET PO SCH (20:02)
[2018-06-02] MEDS: DOCUSATE SODIUM/SENNA 50/8.6MG TAB PO SCH (20:03)
[2018-06-02] MEDS: SODIUM CHLORIDE 0.9% 1000ML 1,000 ML IV SCH (20:11)
[2018-06-03 08:28] LABS: Basophils # (auto) 0.04 K/uL (0-0.2); Basophils % (auto) 0.5 %; Eosinophils # (auto) 0.24 K/uL (0-0.5); Eosinophils % (auto) 2.7 %; Hematocrit (blood only) 38.3 % (37-47); Hemoglobin 11.6 g/dL (12.0-16.0); Immature Granulocytes # (auto) 0.02 K/uL (0.00-0.02); Immature Granulocytes % (auto) 0.2 %; Lymphocytes % (auto) 14.9 %; Mean Corpuscular Hgb Conc 30.3 g/dL (32-36); Mean Corpuscular Volume 86.7 fL (80-100); Mean Platelet Volume 9.7 fL (7.4-10.4); Monocytes # (auto) 0.73 K/uL (0.11-0.59); Monocytes % (auto) 8.4 %; Neutrophils # (auto) 6.41 K/uL (1.4-6.5); Neutrophils % (auto) 73.3 %; Platelet Count 270 K/uL (130-400); RDW Standard Deviation 44.5 fL (36.4-46.3); Red Blood Count 4.42 M/uL (4.2-5.4); White Blood Count 8.74 K/uL (4.8-10.8)
[2018-06-03 09:03] LABS: BUN Creatinine Ratio 33.3 (10-20); Calcium 8.4 mg/dl (8.5-10.1); Creatinine Clr Calc Pharmacy 49.2 ml/min; Est GFR (African American) 78.3; Est GFR (Non-African American) 67.6; Potassium 3.8 mmol/L (3.5-5.1)
[2018-06-03] MEDS: SODIUM CHLORIDE 0.9% 1000ML 1,000 ML IV SCH ×2 (09:18→21:59)
[2018-06-03] MEDS: ENOXAPARIN INJ 40 MG/0.4 ML SYR SQ SCH (09:21)
[2018-06-03] MEDS: DULOXETINE HCL 60 MG CAP PO SCH (09:21)
[2018-06-03] MEDS: POLYETHYLENE (MIRALAX) 17 GM PACK PO SCH (09:22)
[2018-06-03] MEDS ORDERED: Nursing to Pharmacy Communication ONE (10:55)
--- NOTE | 2018-06-03 12:25 | Orthopedic Progress Note ---
Date of Service June 03, 2018 Assessment & Plan (1) Closed subcapital fracture of right femur: Pain management PT WBAT DC planning: most likely will require rehab Subjective s/p right hip perc pinning hip. patient resting comfortably in bed, pleasantly confused No N/V, Dizziness, chest pain, SOB, calf pain, pain well controlled Physical Exam 2 Vital Signs (Past 24 Hours): Last Vital Signs Temp 36.8 C 06/03/18 07:10 Pulse 72 06/03/18 07:10 Resp 18 06/03/18 07:10 BP 166/69 H 06/03/18 07:10 Pulse Ox 93 06/03/18 07:10 Physical Exam: Toes mobile, NVI. Calves soft, non tender. Dressing in place to right hip . _ (1) Closed subcapital fracture of right femur Encounter type: initial encounter Fracture healing: Qualified Code(s): S72.011A - Unspecified intracapsular fracture of right femur, initial encounter for closed fracture
--- NOTE | 2018-06-03 16:18 | Hospitalist Progress Note ---
Date of Service June 03, 2018 Assessment & Plan (1) Subcapital fracture of hip: Left subcapital fracture seen on CT scan. S/p nail with orthopedics on . - PT/OT - Likely rehab placement (2) Dementia: Severe dementia at baseline. Patient is AAOx0 and doesn't even answer all questions appropriately. - Continue memantine & duloxetine - Continue quetiapeine QHS for sleep (3) Depression: - Continue Cymbalta (4) DVT prophylaxis: Heparin BID Subjective 78yo F w/ hx of dementia who presents with left hip fracture. This morning, she was in good spirits. No major complaints. AAOx0 due to her dementia. Reports no fevers/chills, chest pain, shortness of breath, abdominal pain, nausea, or vomiting, but also sometimes has trouble answering the question. Physical Exam 2 Vital Signs (Past 24 Hours): Last Vital Signs Temp 37.0 C 06/03/18 15:29 Pulse 87 06/03/18 15:29 Resp 18 06/03/18 15:29 BP 168/83 H 06/03/18 15:29 Pulse Ox 95 06/03/18 15:29 Constitutional: + altered mental status (Baseline severe dementia); no acute distress Neck: normal visual inspection Respiratory: normal respiratory effort Cardiovascular: Rate/Rhythm: regular rate and regular rhythm Gastrointestinal (Abdomen): normal bowel sounds, soft, nontender, no hepatosplenomegaly Neurologic: moves all extremities Psychiatric: Orientation: alert; + not oriented x 3 (Patient laughs, smiles, and interacts with interview. Does not answer questions. )
[2018-06-03] MEDS: QUETIAPINE FUMARATE 25 MG TABLET PO SCH (19:59)
[2018-06-03] MEDS: MEMANTINE HCL 5 MG TAB PO SCH (19:59)
[2018-06-03] MEDS: DOCUSATE SODIUM/SENNA 50/8.6MG TAB PO SCH (19:59)
[2018-06-04 06:52] LABS: Hematocrit (blood only) 37.3 % (37-47); Hemoglobin 11.3 g/dL (12.0-16.0); Mean Corpuscular Hgb Conc 30.3 g/dL (32-36); Mean Corpuscular Volume 85.4 fL (80-100); Mean Platelet Volume 9.8 fL (7.4-10.4); Platelet Count 253 K/uL (130-400); RDW Coefficient of Variation 14.1 % (11.5-14.5); RDW Standard Deviation 43.8 fL (36.4-46.3); Red Blood Count 4.37 M/uL (4.2-5.4); White Blood Count 7.78 K/uL (4.8-10.8)
[2018-06-04 07:23] LABS: BUN Creatinine Ratio 30.2 (10-20); Creatinine Clr Calc Pharmacy 53.1 ml/min; Est GFR (African American) 85.9; Est GFR (Non-African American) 74.1; Potassium 3.5 mmol/L (3.5-5.1)
[2018-06-04] MEDS: MEMANTINE HCL 5 MG TAB PO SCH (08:56)
[2018-06-04] MEDS: DULOXETINE HCL 60 MG CAP PO SCH (08:56)
[2018-06-04] MEDS: POLYETHYLENE (MIRALAX) 17 GM PACK PO SCH (08:57)
[2018-06-04] MEDS: ENOXAPARIN INJ 40 MG/0.4 ML SYR SQ SCH (08:57)
[2018-06-04] MEDS ORDERED: HydrALAZINE HCL 20 MG/ML VIAL IV PRN (09:19)
[2018-06-04] MEDS ORDERED: LOSARTAN POTASSIUM 25 MG TAB PO SCH (09:30)
--- NOTE | 2018-06-04 09:59 | Orthopedic Progress Note ---
Date of Service June 04, 2018 Assessment & Plan (1) Closed subcapital fracture of right femur: Pain management PT WBAT DC planning: most likely will require rehab Ortho will sign off Subjective s/p right hip perc pinning hip. patient resting comfortably in bed, pleasantly confused No N/V, Dizziness, chest pain, SOB, calf pain, pain well controlled per patient Physical Exam 2 Vital Signs (Past 24 Hours): Last Vital Signs Temp 37.1 C 06/03/18 23:12 Pulse 88 06/04/18 07:12 Resp 16 06/04/18 07:12 BP 170/100 H 06/04/18 09:08 Pulse Ox 91 06/04/18 07:12 Physical Exam: Toes mobile, NVI. Calves soft, non tender. Dressing in place. _ (1) Closed subcapital fracture of right femur Encounter type: initial encounter Fracture healing: Qualified Code(s): S72.011A - Unspecified intracapsular fracture of right femur, initial encounter for closed fracture
[2018-06-04] MEDS: SODIUM CHLORIDE 0.9% 1000ML 1,000 ML IV SCH (10:30)
--- NOTE | 2018-06-04 17:25 | Discharge Summary ---
Date of Service June 04, 2018 Admission HPI Per Admitting Provider Patient had a fall at [facility] on the she subsequently has decreased function since that time is been worsening over the last 1 week she is unable to bear weight on her right leg multiple x-rays have been unremarkable CT scan confirmed a subcapital hip fracture patient has dementia she is accompanied by her daughter who supplies most of the information. The patient even on exam cannot reliably confirm how much pain she had does or does not have Principal Diagnosis Right hip fracture Discharge Exam Constitutional + altered mental status (Baseline severe dementia); no acute distress ENMT Mouth: no dentition abnormality (Not apparent. Patient will not open mounth to request.) Mallampati Class: II (Presumptive. Patient will not follow commands.) Neck normal visual inspection Respiratory normal respiratory effort Cardiovascular Rate/Rhythm: regular rate and regular rhythm Gastrointestinal (Abdomen) normal bowel sounds, soft, nontender, no hepatosplenomegaly Musculoskeletal Spine: normal cervical ROM (Patient appears to have no limitations.) Neurologic moves all extremities Psychiatric Orientation: alert; + not oriented x 3 (Patient laughs, smiles, and interacts with interview. Does not answer questions. ) Discharge Data Allergies Allergy/AdvReac Type Severity Reaction Status Date / Time No Known Allergies Allergy Verified 06/01/18 17:16 Consultations 06/01/18 16:48 Consult Case Management - Discharge Planning Routine 06/01/18 18:27 ED Decision to Admit Stat 06/01/18 19:23 Consult Case Management - Discharge Planning Routine Consult Case Management - Discharge Planning Routine Consult Orthopedic Surgery Routine 06/02/18 19:19 Consult Case Management - Discharge Planning Routine Procedures Performed Operation Date: 06/02/18 15:00 Actual Procedures p Open Reduction Internal Fixation Right Hip Fracture(Right) - Chte Gutierrez MD Ordered Studies 06/01/18 16:48 CT cervical spine wo con Stat CT head/brain wo con Stat 06/01/18 17:34 CT femur RT wo con Stat 06/02/18 13:00 FL fluoroscopy <1hr Routine FL hip RT 2-3V Routine Hospital Course (1) Subcapital fracture of hip: Left subcapital fracture seen on CT scan. S/p nail with orthopedics on . - Toe touch bearing for 6 weeks; will follow up with orthopedics. See discharge instructions. (2) Dementia: Severe dementia at baseline. Patient is AAOx0 and doesn't even answer all questions appropriately. - Continue memantine & duloxetine - Continue quetiapeine QHS for sleep (3) Depression: - Continue Cymbalta (4) DVT prophylaxis: Heparin BID Total Time Total Time Spent Total Time Spent (In Minutes): 35 Total Time Includes: Examination of the Patient, Discharge Planning and Medication Reconciliation Discharge Plan Discharge Items Patient Disposition: Trans Resident Long-Term Care Reason For Visit: RIGHT SUBCAPITAL HIP FRACTURE Discharge Diagnosis: Right hip fracture Discharge Goals: Decrease discomfort and Improve function Activity: Resume your previous activity Weightbearing: Right toe touch Weightbearing Comment: With walker. Pt should be bed to chair only until seen in the office. Non-emergency contact: Primary Care Provider and Surgeon Call non-emergency contact if: you have any medication questions, your symptoms worsen, your pain is unusual for you and your temperature is above 100.5 Follow-up/Referrals: Fabian Wills MD [Surgeon] - (Please see Dr. Wills in the office.) Diet: Regular Addtl Provider Instructions: [facility] DISCHARGE INSTRUCTIONS: HIP FRACTURE SELF CARE INSTRUCTIONS: A. You are to ambulate with a walker or crutches for approximately 6 weeks. If the patient cannot understand weightbearing status, they should be bed to chair transfer only until seen in the office by the physician. At that time, they will decide further ambulation/weightbearing status. B. You are TOE TOUCH WEIGHT BEARING on your operative lower extremity for at least 6 weeks. C. Wear low heeled shoes with non-slip soles D. Be sure that your floors are free of things that could trip you throw rugs, electrical cords, and small objects. Avoid wet and waxed floors, especially with crutches/walker/cane. E. Try to walk several times a day with rest periods between. F. You may shower 48 hours after surgery and get the incision area wet, but DO NOT soak or submerge incision area in water. (No baths, swimming pools, hot tubs ) G. Change your dressing daily. If the wound remains dry, then you may change it every other day. Call the office with any questions about the wound. . After 3 days from surgery, you may shower. No tub baths. Do not soak the wound. H. Do NOT apply soap or any ointment/lotions directly over incision. I. You may use ice as needed to operative site. SPECIAL CARE INSTRUCTIONS: VERY IMPORTANT TO READ AND REVIEW A. You may be at risk for phlebitis or blood clots. a. Wear surgical stockings (GARY hose) for 2 weeks after surgery to improve circulation and reduce swelling. b. Take LOVENOX 40mg SQ daily for 4 weeks or as directed. This is your blood thinner. c. If you are on Coumadin- you will have daily/weekly blood work to monitor your levels. This will be done by either your family physician/ board design engineer (if you are on Coumadin chronically) versus your orthopedic surgeon. Expect a phone call the day of or the day after your blood work is drawn to adjust your dose accordingly. B. There are a few signs you need to watch for after you are home. Call [facility] at [phone] if you experience any of the following: a. If you have a temperature of 101 degrees or higher. b. Sudden increase in pain in your hip not relieved by rest or pain medication. c. Any fluid or drainage from the incision; redness of the incision. d. Shortness of breath or chest pain. B. Please call [facility] at [phone] if you have any questions or concerns about your operation or recovery. C. Call your physician if: a. Temperature is greater than 101 degrees (F). b. Pain is not relieved by prescribed pain medications. c. Increase drainage or redness from incision. d. Unanswered questions or concerns. D. Pain Medication: a. You will be prescribed pain medication upon discharge that should last till your first post-operative appointment. b. If you experience nausea and/or skin rash, discontinue this medication and contact our office for an alternative medication. c. Caution- narcotic pain medication can cause constipation. FOLLOW UP VISIT: Please call [facility] at [phone] to schedule a follow up appointment 10-14 days from the date of your surgery date. Prescriptions: New enoxaparin 40 mg/0.4 mL Syringe 40 mg subcut Q24H Qty: 30 RF: 0 Continue quetiapine [Seroquel] 25 mg Tablet 12.5 mg PO QPM RF: 0 acetaminophen [Tylenol] 325 mg Tablet 650 mg PO TID RF: 0 acetaminophen [Tylenol] 325 mg Tablet 650 mg PO Q4 MDD 3 GRAMS/24 HOURS PRN (Reason: Fever Or Pain) RF: 0 polyethylene glycol 3350 [Miralax] 17 gram Powder In Packet 17 g PO QAM RF: 0 tramadol 50 mg Tablet 50 mg PO Q4 PRN (Reason: Pain (Scale Score 6-10)) RF: 0 magnesium hydroxide [Milk of Magnesia] 400 mg/5 mL Suspension 30 ml PO DAILY PRN (Reason: Constipation) RF: 0 bisacodyl [Dulcolax (bisacodyl)] 10 mg Suppository 10 mg GA DAILY PRN (Reason: Constipation) RF: 0 lidocaine [Lidoderm] 5 % Adhesive Patch,Medicated 1 patch TOPICAL HS RF: 0 sodium phosphates [Fleet Enema] 19-7 gram/118 mL Enema 118 ml GA DAILY PRN (Reason: Constipation) RF: 0 duloxetine [Cymbalta] 60 mg Capsule,Delayed Release(Dr/Ec) 60 mg PO QAM RF: 0 memantine [Namenda XR] 14 mg Capsule,Sprinkle,Er 24hr 14 mg PO QAM RF: 0 Discontinued naproxen sodium [Aleve] 220 mg Tablet 220 mg PO QAM RF: 0 Stand-Alone Forms: [facility]charge Orders: Discharge Order (Routine); Ordered 06/04/18 Ordered By: Jah Altamirano Admission Data Admit Date/Time: 06/01/18 18:38 Attending Provider: Jah Altamirano Admit Provider: Reji Fierro Primary Care Provider: Gautam Gama Other Providers: Jah Altamirano ; Reji Fierro ; Fabian Wills Service: Surgical Services Other Interventions: Discharge Summary Assessment (RN) Last Done: 06/04/18 15:18 DC Date/Time DO NOT enter until pt leaves facility: 06/04/18 17:17
== END 2018-06-04 17:17 | disposition home or self-care (01) | DRG 482 ==
LOC: ED 16:41 → 3N 18:38 → SUATTDRO 18:38 → 3N 18:56